=== PATIENT | male | born 1965 | race Caucasian/White ===

== ENCOUNTER 2021-02-05 06:19 | Outpatient (REF) | payer OTHER, SELFPAY ==
[2021-02-05 12:31] LABS: Alanine Aminotransferase 22 U/L (0-40); Albumin Level 4.5 g/dL (3.5-5.0); Alkaline Phosphatase 83 U/L (39-117); Anion Gap 16 (12-20); Aspartate Amino Transferase 15 U/L (5-37); Bilirubin Total 0.6 mg/dL (0.0-1.0); Blood Urea Nitrogen 18 mg/dL (9-16); Calcium 9.7 mg/dL (8.4-10.2); Carbon Dioxide 25 mmol/L (22-29); Chloride 104 mmol/L (96-108); Cholesterol 295 mg/dL; Estimated Glomerular Filt Rate > 60; Glucose Fasting 91 mg/dL (60-99); HDL Cholesterol 47 mg/dL; LDL Cholesterol Calculated 200 mg/dl; Potassium 4.5 mmol/L (3.3-5.1); Sodium 140 mmol/L (135-145); TSH reflex Free T4 3.46 uIU/mL (0.32-4.0); Total Protein 7.3 g/dL (6.5-8.0); Triglycerides 244 mg/dL
== END 2021-02-05 06:20 | disposition home or self-care (01) ==
LOC: HO.HMGCLDS 06:19
PROVIDERS: PCP Nurse Practitioner Family; Visit Provider Nurse Practitioner Family
DX: Z00.00 Encounter for general adult medical examination without abnormal findings (principal); Z12.5 Encounter for screening for malignant neoplasm of prostate
CPT/HCPCS: 36415; 80053; 80061; 84153; 84443

== ENCOUNTER 2021-05-31 10:04 | Outpatient (REF) | payer OTHER, SELFPAY ==
[2021-05-31 11:29] LABS: Appearance Urine CLEAR; Color Urine YELLOW; Glucose Urine UA NEG (NEG); Leukocyte Esterase Urine NEG (NEG); Nitrite Urine NEG (NEG); Specific Gravity - Urine 1.025 (1.005-1.025); Urine Blood NEG (NEG); Urine Ketones NEG (NEG); Urine Protein NEG (NEG-TRACE)
[2021-05-31 11:53] LABS: Cholesterol 251 mg/dL; HDL Cholesterol 49 mg/dL; LDL Cholesterol Calculated 175 mg/dl; Triglycerides 136 mg/dL
== END 2021-05-31 10:05 | disposition home or self-care (01) ==
LOC: HO.HMGCLDS 10:04
PROVIDERS: PCP Nurse Practitioner Family; Visit Provider Nurse Practitioner Family
DX: R10.9 Unspecified abdominal pain (principal); E78.5 Hyperlipidemia, unspecified
CPT/HCPCS: 36415; 80061; 81003

== ENCOUNTER 2021-07-04 10:15 | Outpatient (REF) | payer OTHER, SELFPAY ==
--- NOTE | ~2021-07-04 | US_ITS ---
EXAMINATION: US RETROPERITONEAL LIMITED (RENAL ONLY) CLINICAL INFORMATION: Left flank pain. COMPARISON: None TECHNIQUE: Real-time imaging of the kidneys. FINDINGS: RIGHT KIDNEY: 10.3 x 4.0 x 5.6 cm (SAG x AP x TRV). The kidney is normal in size, contour, and echogenicity. Renal cortical thickness is normal. No calculi or focal parenchymal lesions. No hydronephrosis. LEFT KIDNEY: 10.4 x 4.6 x 5.2 cm (SAG x AP x TRV). The kidney is normal in size, contour, and echogenicity. Renal cortical thickness is normal. No calculi or focal parenchymal lesions. No hydronephrosis. US/US renal BI IMPRESSION: Normal renal ultrasound.
== END 2021-07-04 10:16 | disposition home or self-care (01) ==
LOC: HO.US 10:15
PROVIDERS: PCP Nurse Practitioner Family; Visit Provider Nurse Practitioner Family
DX: R10.9 Unspecified abdominal pain (principal)
CPT/HCPCS: 76775

== ENCOUNTER 2021-08-05 06:59 | Outpatient (REF) | payer OTHER, SELFPAY ==
[2021-08-05 12:03] LABS: Cholesterol 176 mg/dL; HDL Cholesterol 41 mg/dL; LDL Cholesterol Calculated 96 mg/dl; Triglycerides 195 mg/dL
== END 2021-08-05 07:00 | disposition home or self-care (01) ==
LOC: HO.HMGCLDS 06:59
PROVIDERS: PCP Nurse Practitioner Family; Visit Provider Nurse Practitioner Family
DX: Z00.00 Encounter for general adult medical examination without abnormal findings (principal); E78.5 Hyperlipidemia, unspecified
CPT/HCPCS: 36415; 80061

== ENCOUNTER 2021-11-26 08:55 | Outpatient (REF) | payer OTHER, SELFPAY ==
[2021-11-26 10:43] LABS: Hematocrit 49.1 % (42.0-52.0); Mean Corpuscular HGB Conc 32.6 g/dl (31.0-36.0); Mean Corpuscular Hemoglobin 30.4 pg (27.0-33.0); Mean Corpuscular Volume 93.3 fL (80.0-98.0); Mean Platelet Volume 12.9 fL (9.4-12.4); Platelet Count 184 X10*3/uL (160-400); Red Blood Count 5.26 X10*6/uL (4.60-5.80); Red Cell Distribution Width 13.7 % (11.0-16.0); White Blood Count 13.7 X10*3/uL (4.8-10.8)
[2021-11-26 11:22] LABS: Alanine Aminotransferase 39 U/L (0-40); Albumin Level 4.6 g/dL (3.5-5.0); Alkaline Phosphatase 86 U/L (39-117); Anion Gap 14 (12-20); Aspartate Amino Transferase 22 U/L (5-37); Bilirubin Total 0.5 mg/dL (0.0-1.0); Blood Urea Nitrogen 15 mg/dL (9-16); Calcium 10.1 mg/dL (8.4-10.2); Carbon Dioxide 26 mmol/L (22-29); Chloride 105 mmol/L (96-108); Estimated Glomerular Filt Rate > 60; Glucose Random 80 mg/dL (60-115); Potassium 4.6 mmol/L (3.3-5.1); Sodium 140 mmol/L (135-145); Total Protein 7.3 g/dL (6.5-8.0)
[2021-11-26 11:43] LABS: TSH reflex Free T4 2.36 uIU/mL (0.32-4.0)
== END 2021-11-26 08:56 | disposition home or self-care (01) ==
LOC: HO.LAB 08:55
PROVIDERS: PCP Nurse Practitioner Family; Referring Provider Nurse Practitioner Family; Visit Provider Nurse Practitioner Family
DX: Z12.11 Encounter for screening for malignant neoplasm of colon (principal)
CPT/HCPCS: 36415; 80053; 84443; 85027; 99202

== ENCOUNTER → 2022-01-06 15:11 | Outpatient (BNVA) | payer OTHER, SELFPAY | PROVIDERS: PCP Nurse Practitioner Family; Visit Provider Nurse Practitioner Family | DX: Z12.11 Encounter for screening for malignant neoplasm of colon (principal); K59.04 Chronic idiopathic constipation | CPT/HCPCS: 99212 ==

== ENCOUNTER 2022-05-28 11:04 | Outpatient (REF) | payer OTHER, SELFPAY ==
[2022-05-28 14:06] LABS: MANUAL DIFF FLAG NO
[2022-05-28 14:15] LABS: Basophils Absolute Auto 0.1 X10*3/uL (0.0-0.2); Basophils Percent Auto 0.7 % (0-2); Eosinophils Absolute Auto 0.3 X10*3/uL (0.0-0.4); Eosinophils Percent Auto 2.2 % (0-4); Hematocrit 46.1 % (42.0-52.0); Hemoglobin 15.2 g/dl (14.0-18.0); Imm Gran Abs Auto 0.07 X10*3/uL (0.00-0.03); Imm Gran Pct Auto 0.6 % (0.0-0.4); Lymphocytes Absolute Auto 2.7 X10*3/uL (1.2-4.9); Lymphocytes Percent Auto 21.5 % (20-40); Mean Corpuscular Hemoglobin 30.3 pg (27.0-33.0); Mean Platelet Volume 13.4 fL (9.4-12.4); Monocytes Absolute Auto 0.9 X10*3/uL (0.1-1.2); Monocytes Percent Auto 7.5 % (2-11); Neutrophils Absolute Auto 8.5 x10*3/uL (2.0-8.3); Neutrophils Percent Auto 67.5 % (45-73); Platelet Count 187 X10*3/uL (160-400); Red Blood Count 5.01 X10*6/uL (4.60-5.80); Red Cell Distribution Width 14.4 % (11.0-16.0); White Blood Count 12.6 X10*3/uL (4.8-10.8)
[2022-05-28 14:26] LABS: Alanine Aminotransferase 26 U/L (0-40); Albumin Level 4.6 g/dL (3.5-5.0); Alkaline Phosphatase 81 U/L (39-117); Anion Gap 15 (12-20); Aspartate Amino Transferase 23 U/L (5-37); Bilirubin Total 0.6 mg/dL (0.0-1.0); Blood Urea Nitrogen 12 mg/dL (9-16); Calcium 9.6 mg/dL (8.4-10.2); Carbon Dioxide 25 mmol/L (22-29); Chloride 104 mmol/L (96-108); Cholesterol 209 mg/dL; Estimated Glomerular Filt Rate > 60; Glucose Fasting 89 mg/dL (60-99); HDL Cholesterol 46 mg/dL; LDL Cholesterol Calculated 138 mg/dl; Potassium 4.7 mmol/L (3.3-5.1); Sodium 139 mmol/L (135-145); Total Protein 7.2 g/dL (6.5-8.0); Triglycerides 127 mg/dL
[2022-05-28 14:46] LABS: TSH reflex Free T4 1.93 uIU/mL (0.32-4.0)
== END 2022-05-28 11:05 | disposition home or self-care (01) ==
LOC: HO.HMGCLDS 11:04
PROVIDERS: PCP Nurse Practitioner Family; Visit Provider Nurse Practitioner Family
DX: K30 Functional dyspepsia (principal); K59.00 Constipation, unspecified
CPT/HCPCS: 36415; 80053; 80061; 84443; 85025

== ENCOUNTER 2022-05-29 09:02 | Outpatient (REF) | payer OTHER, SELFPAY ==
--- NOTE | ~2022-05-29 | XR_ITS ---
EXAMINATION: XR CHEST CLINICAL INFORMATION: Nicotine dependence COMPARISON: None TECHNIQUE: 2 views of the chest were obtained. FINDINGS: No significant abnormality is noted involving the heart, lungs, mediastinum, bony thorax or soft tissues. Some bibasilar scarring is seen. XR/XR chest 2V IMPRESSION: Unremarkable examination.
[2022-05-29 11:25] LABS: Appearance Urine Clear; Color Urine Yellow; Glucose Urine UA Negative (Negative); Leukocyte Esterase Urine Negative (Negative); Nitrite Urine Negative (Negative); PH 5.5 (5.0-9.0); Specific Gravity - Urine 1.025 (1.005-1.025); Urine Blood Negative (Negative); Urine Ketones Negative (Negative); Urine Protein Negative (Neg-Trace)
[2022-05-29 14:23] LABS: MANUAL DIFF FLAG NO
[2022-05-29 16:07] LABS: Influenza A PCR NEGATIVE (Negative); Influenza B PCR NEGATIVE (Negative); Resp Syncy Virus RNA Qual PCR NEGATIVE (Negative); SARS COV2 PCR INHOUSE NEGATIVE (Negative)
[2022-05-29 17:37] LABS: Basophils Absolute Auto 0.1 X10*3/uL (0.0-0.2); Basophils Percent Auto 0.8 % (0-2); Eosinophils Absolute Auto 0.3 X10*3/uL (0.0-0.4); Eosinophils Percent Auto 2.4 % (0-4); Hematocrit 48.5 % (42.0-52.0); Hemoglobin 15.8 g/dl (14.0-18.0); Imm Gran Abs Auto 0.06 X10*3/uL (0.00-0.03); Imm Gran Pct Auto 0.5 % (0.0-0.4); Lymphocytes Absolute Auto 3.2 X10*3/uL (1.2-4.9); Lymphocytes Percent Auto 25.5 % (20-40); Mean Corpuscular HGB Conc 32.6 g/dl (31.0-36.0); Mean Corpuscular Hemoglobin 29.8 pg (27.0-33.0); Mean Corpuscular Volume 91.5 fL (80.0-98.0); Mean Platelet Volume 13.3 fL (9.4-12.4); Monocytes Percent Auto 7.5 % (2-11); Neutrophils Percent Auto 63.3 % (45-73); Platelet Count 187 X10*3/uL (160-400); Red Cell Distribution Width 14.5 % (11.0-16.0); White Blood Count 12.7 X10*3/uL (4.8-10.8)
== END 2022-05-29 09:03 | disposition home or self-care (01) ==
LOC: HO.HMGCLDS 09:02
PROVIDERS: PCP Nurse Practitioner Family; Visit Provider Nurse Practitioner Family
DX: Z20.822 Contact with and (suspected) exposure to COVID-19 (principal); K30 Functional dyspepsia; K59.00 Constipation, unspecified; D72.829 Elevated white blood cell count, unspecified; F17.200 Nicotine dependence, unspecified, uncomplicated
CPT/HCPCS: 0241U; 36415; 71046; 81003; 85025

== ENCOUNTER 2022-07-25 15:32 | Outpatient (REF) | payer OTHER, SELFPAY ==
--- NOTE | ~2022-07-25 | CT_ITS ---
EXAMINATION: CT CHEST SCREENING CLINICAL INFORMATION: 43 pack-year history. Current smoker. COMPARISON: Previous chest x-ray May 2022 TECHNIQUE: Multidetector volumetric CT imaging of the chest is performed without contrast using low dose technique. Additional 2D coronal and sagittal reformatted images and axial 3D maximum intensity projection (MIP) images are generated on the CT workstation. This CT examination was performed using dose optimization techniques as appropriate, variously including the following: *Automated exposure control *Adjustment of mA and/or kV according to patient size (this includes techniques or standardized protocols for targeted exams where dose is matched to indication/reason for exam; i.e. extremities or head) *Use of iterative reconstruction technique DLP: 41 mGy-cm FINDINGS: LUNGS: Mild emphysema. Increased soft tissue in the dependent right mainstem bronchus axial image 209 series 5.. 3 mm calcified right upper lobe nodule axial image 135 series 5. 5 mm lingular nodule axial image 295 series 5. Linear scarring or subsegmental atelectasis at the lung bases. MEDIASTINUM: The mediastinum is normal. CORONARY ARTERY CALCIFICATION: None visualized on this study. PLEURA: There is no pleural effusion. No pleural mass or thickening. AXILLA: No lymphadenopathy. UPPER ABDOMEN: Unremarkable OSSEOUS STRUCTURES: Degenerative changes of the spine. CT/CT lung screening IMPRESSION: Mild emphysema. Small pulmonary nodules. Soft tissue in the right mainstem bronchus. ASSESSMENT: Lung-RADS category 4A: Suspicious RECOMMENDATION: 3 month low-dose chest CT follow-up for right mainstem bronchus endobronchial finding.
== END 2022-07-25 15:33 | disposition home or self-care (01) ==
LOC: HO.CT 15:32
PROVIDERS: PCP Nurse Practitioner Family; Visit Provider Physician Assistant Medical
DX: Z12.2 Encounter for screening for malignant neoplasm of respiratory organs (principal); F17.210 Nicotine dependence, cigarettes, uncomplicated
CPT/HCPCS: 71271; G0296

== ENCOUNTER 2022-12-09 09:10 | Outpatient (REF) | payer OTHER, SELFPAY ==
--- NOTE | ~2022-12-09 | CT_ITS ---
EXAMINATION: CT CHEST SCREENING CLINICAL INFORMATION: Nicotine dependence. Current smoker 40 pack year history. Increased soft tissue in the dependent right mainstem bronchus. COMPARISON: CT lung screening 07/25/2022. TECHNIQUE: Multidetector volumetric CT imaging of the chest is performed without contrast using low dose technique. Additional 2D coronal and sagittal reformatted images and axial 3D maximum intensity projection (MIP) images are generated on the CT workstation. This CT examination was performed using dose optimization techniques as appropriate, variously including the following: *Automated exposure control *Adjustment of mA and/or kV according to patient size (this includes techniques or standardized protocols for targeted exams where dose is matched to indication/reason for exam; i.e. extremities or head) *Use of iterative reconstruction technique DLP: 37 mGy-cm FINDINGS: LUNGS: The lungs are hyperinflated with bibasilar platelike atelectasis. There is a 5 mm perivascular lung nodule in the lingula image 278/6, subpleural 3 mm calcified nodule right upper lobe axial image 135/6. No additional pulmonary nodules seen. MEDIASTINUM: Central trachea and the bronchi are widely patent. The thyroid lobes are symmetrical and normal. Heart size and the great vessels are normal caliber. No abnormal size mediastinal or hilar lymph nodes seen. There is no pericardial effusion. Previously seen soft tissue in the dependent right mainstem bronchus has resolved. However, there is smaller dependent nodular 3 mm on axial image 193/6. CORONARY ARTERY CALCIFICATION: None visualized on this study. PLEURA: There is no pleural effusion. No pleural mass or thickening. AXILLA: No lymphadenopathy. UPPER ABDOMEN: Unremarkable. OSSEOUS STRUCTURES: Unremarkable. CT/CT lung screen follow up IMPRESSION: Small nodular densities in dependent right bronchus appears to be a slightly different location. It measures 3 mm, but stable. Not sure if it is the same nodule as before. Right upper lobe calcification and perivascular lingular nodule is stable. No new nodules seen. There is bilateral lower lobe and lingular platelike atelectasis. ASSESSMENT: Lung-RADS category 2: Benign. RECOMMENDATION: Low-dose annual CT chest.
== END 2022-12-09 09:11 | disposition home or self-care (01) ==
LOC: HO.CT 09:10
PROVIDERS: PCP Nurse Practitioner Family; Visit Provider Physician Assistant Medical
DX: Z12.2 Encounter for screening for malignant neoplasm of respiratory organs (principal); F17.210 Nicotine dependence, cigarettes, uncomplicated
CPT/HCPCS: 71250

== ENCOUNTER 2023-02-05 10:33 | Outpatient (REF) | payer OTHER, SELFPAY ==
[2023-02-05 15:25] LABS: Influenza A PCR NEGATIVE (Negative); Influenza B PCR NEGATIVE (Negative); Resp Syncy Virus RNA Qual PCR NEGATIVE (Negative); SARS COV2 PCR INHOUSE POSITIVE (Negative)
== END 2023-02-05 10:34 | disposition home or self-care (01) ==
LOC: HO.LAB 10:33
PROVIDERS: Visit Provider Nurse Practitioner Family
DX: Z20.822 Contact with and (suspected) exposure to COVID-19 (principal); R09.89 Other specified symptoms and signs involving the circulatory and respiratory systems
CPT/HCPCS: 0241U

== ENCOUNTER 2023-05-27 13:02 | Outpatient (AMB) | payer OTHER, SELFPAY ==
[2023-05-27 13:17] VITALS: BP 112/70; PULSE 100; O2SAT 100; BMI 20.5
--- NOTE | 2023-05-27 13:17 | MHC.PC.OV ---
Vital Signs 05/27/23 13:17 Height 5 ft 6 in Weight 127 lb BMI 20.5 BP 112/70 Blood Pressure Location Rt brachial Position Sitting Pulse 100 Pulse Source Pulse Oximeter Pulse Oximetry (%) 100 Oxygen Delivery Method Room Air Intake Visit Reasons: Follow up ?Nebulizer Allergies No Known Allergies [No Known Allergies*] Allergy (Verified 05/27/23 13:19) Medication List - Last Reconciled 05/27/23 by MARE Prieto-FARHAT albuterol sulfate 90 mcg/actuation 2 puffs inhalation Q6H PRN atorvastatin 20 mg PO BEDTIME citalopram 20 mg PO DAILY fluticasone furoate-vilanterol 200-25 mcg/dose 1 inh inhalation DAILY lorazepam 1 mg PO TID miscellaneous medical supply As directed, heating pad montelukast 10 mg PO DAILY [id number] mcg 1 tab PO DAILY quetiapine 50 mg PO BEDTIME sennosides (Natural Senna Laxative) 8.6 mg PO BEDTIME Tobacco use date assessed: 05/27/23 Dental Screening Dental Screen Date: 05/27/23 Did you have a dental visit in the last 12 months?: Yes Did you have a dental problem in the last 6 months where you did not have access to dental care?: No Was dental information given to patient?: Patient has dentist HPI Follow up ?Nebulizer HPI Details Pt is a smoker. He is part of the low-dose CT program. Pt would benefit from a nebulizer, will work on getting him one. Will also order PFT testing. Denies chest pain, excessive shortness of breath, and dizziness. [facility] Medical History Nicotine dependence, cigarettes, uncomplicated Dyslipidemia Surgical History History of esophagogastroduodenoscopy (EGD) History of colonoscopy History of total replacement of right shoulder joint Family History Father Diabetes Heavy drinker of alcohol Substance use disorder Mother Heart attack Heavy drinker of alcohol Substance use disorder Sister Substance use disorder Mental health disorder Social History Housing: Apartment Alcohol intake: never Patient Tobacco Use Status: Current everyday Tobacco user Cigarette Packs Per Day: 0.5 Cigarettes Per Day: 10 Years Smoked: (onset 14yo, 1ppd x 42yrs, now 1/2ppd, 40pyh) e-Cigarette/Vaping Use: Never Used Second Hand Smoke Exposure: Yes service: Yes Current occupational status: disabled Cognitive needs: No Hearing needs: No Vision needs: Yes Questionnaire Thrive Questionnaire Date Thrive assessed: 01/14/22 EZEKIEL-7 AMB Questionnaire EZEKIEL-7 Date EZEKIEL - 7 assessed: 01/14/22 Source: Developed by Drs. Edwin Pinto, Kinjal Allen, Franco Archibald and colleagues, with an educational sonia from [employer]. Review of Systems Const Reports as per HPI Physical exam (Primary Care) Vital Signs: Last Vital Signs Pulse 100 05/27/23 13:17 BP 112/70 05/27/23 13:17 Pulse Ox 100 05/27/23 13:17 Oxygen Delivery Method Room Air 05/27/23 13:17 BMI result Body Mass Index 20.5 Tobacco/Smoking Status: Tobacco use Status Tobacco use date assessed 05/27/23 05/27/23 13:26 Patient Tobacco Use Status Current everyday Tobacco 05/27/23 13:26 e-Cigarette/Vaping Use Never Used 05/27/23 13:21 Thrive Assessment: Date of Thrive Assessment Date Thrive assessed 01/14/22 05/27/23 13:21 Const General: cooperative Orientation/consciousness: patient oriented x3 Resp Effort & Inspection: normal respiratory effort Auscultation: diminished lung sounds Cardio Rate: regular rate Rhythm: regular rhythm Heart sounds: S1 normal heart sound present and S2 normal heart sound present Neuro General: patient oriented x3 Psych Appearance: grossly normal Mental Status: mental status grossly normal Speech and movement: Normal speech and movement present Affect: normal affect Attitude: cooperative Thought process: Normal thought process present Thought content: Normal thought content present Insight: Good insight present (Psych) Judgement: Good judgement present (Psych) Immunizations pneumoc 20-dania conj-dip cr(PF) 0.5 mL IM syringe Performing Provider: JILL Prieto Performing Location: [facility] [place] [facility] Administered by: Sapphire Clemente CMA on 05/27/23 13:56 Dose Route Admin Location Dispensed Lot Number Expiration Date NDC Desizing Machine Offbearer 0.5 mL IM Right Deltoid 0.5 mL [id number] 07/07/24 9331-9936-56 WYETH/PFIZER VIS Given Date VIS Provided VIS Publication Date 05/27/23 Single Vaccine 21 Eligibility Eligibility Date Funding Source Not [facility] Eligible 05/27/23 Private Assessment and Plan Assessment & Plan (1) Nicotine dependence, cigarettes, uncomplicated: Comment: (current smoker, onset 14, 1ppd x 42yrs, now 1/2ppd, 40pyh) Code(s): F17.210 - Nicotine dependence, cigarettes, uncomplicated (2) Cough: Code(s): R05.9 - Cough, unspecified Plan The patient agreed to the use of a medical secretary receptionist for this encounter. Scribed for MARE Parikh- by Samantha Salmeron medical secretary receptionist, on 05/27/2023 at 13:30 EST. Orders: Orders Comprehensive [place]. Panel Fast Today Z00.00 - Encounter for general adult medical examination without abnormal findings TSH reflex Free T4 Today Z00.00 - Encounter for general adult medical examination without abnormal findings Prostate Specific Antigen Scr Today Z12.5 - Encounter for screening for malignant neoplasm of prostate PFT pulmonary function test Today F17.210 - Nicotine dependence, cigarettes, uncomplicated, R05.9 - Cough, unspecified Complete Blood Count Auto Diff Today Z00.00 - Encounter for general adult medical examination without abnormal findings UA CC w/rflx Micro + Cult Today Z00.00 - Encounter for general adult medical examination without abnormal findings Lipid Panel Today Z00.00 - Encounter for general adult medical examination without abnormal findings Pneumococcal 20 Immunization Today Z23 - Encounter for immunization Coding Level of Care Code Est Pt Level 3 (58020) Diagnoses Nicotine dependence, cigarettes, uncomplicated F17.210 Cough R05.9
== END 2023-05-27 15:20 | disposition home or self-care (01) ==
PROVIDERS: PCP Nurse Practitioner Family; Visit Provider Nurse Practitioner Family
DX: F17.210 Nicotine dependence, cigarettes, uncomplicated (principal); R05.9 Cough, unspecified; Z23 Encounter for immunization
CPT/HCPCS: 90471; 90677; 99213

== ENCOUNTER 2023-06-12 08:57 | Outpatient (REF) | payer OTHER, SELFPAY ==
[2023-06-12 13:14] LABS: Alanine Aminotransferase 19 U/L (0-40); Albumin Level 4.3 g/dL (3.5-5.0); Alkaline Phosphatase 69 U/L (39-117); Anion Gap 13 (12-20); Aspartate Amino Transferase 18 U/L (5-37); Bilirubin Total 0.6 mg/dL (0.0-1.0); Blood Urea Nitrogen 15 mg/dL (9-16); Calcium 9.4 mg/dL (8.4-10.2); Carbon Dioxide 25 mmol/L (22-29); Chloride 108 mmol/L (96-108); Cholesterol 175 mg/dL (<200); Estimated Glomerular Filt Rate > 60; Glucose Fasting 97 mg/dL (60-99); HDL Cholesterol 49 mg/dL (>40); LDL Cholesterol Calculated 99 mg/dL (<100); Potassium 4.3 mmol/L (3.3-5.1); Sodium 142 mmol/L (135-145); TSH reflex Free T4 2.13 uIU/mL (0.32-4.0); Total Protein 7.1 g/dL (6.5-8.0); Triglycerides 136 mg/dL (<150)
== END 2023-06-12 08:58 | disposition home or self-care (01) ==
LOC: HO.HMGCLDS 08:57
PROVIDERS: PCP Nurse Practitioner Family; Visit Provider Nurse Practitioner Family
DX: Z00.00 Encounter for general adult medical examination without abnormal findings (principal); Z12.5 Encounter for screening for malignant neoplasm of prostate; D72.829 Elevated white blood cell count, unspecified; F17.200 Nicotine dependence, unspecified, uncomplicated; E78.5 Hyperlipidemia, unspecified; Z13.29 Encounter for screening for other suspected endocrine disorder; Z13.0 Encounter for screening for diseases of the blood and blood-forming organs and certain disorders involving the immune mechanism
CPT/HCPCS: 36415; 80053; 80061; 81001; 84153; 84443; 85025

== ENCOUNTER 2023-06-15 11:16 | Outpatient (AMB) | payer OTHER, SELFPAY ==
[2023-06-15 11:23] VITALS: BP 124/80; PULSE 90; O2SAT 99; BMI 20.9
--- NOTE | 2023-06-15 11:23 | MHC.PC.OV ---
Vital Signs 06/15/23 11:23 Height 5 ft 6 in Weight 129 lb 4 oz BMI 20.9 BP 124/80 Blood Pressure Location Lt brachial Position Sitting Pulse 90 Pulse Source Pulse Oximeter Pulse Oximetry (%) 99 Oxygen Delivery Method Room Air Intake Visit Reasons: Annual PE Intake Note: last colon screen 02/07/14 due 10 years after pt had his fasting labs on 06/12/23 Allergies No Known Allergies [No Known Allergies*] Allergy (Verified 06/15/23 11:58) Medication List - Last Reconciled 06/15/23 by MARE Prieto-FARHAT albuterol sulfate 90 mcg/actuation 2 puffs inhalation Q6H PRN atorvastatin 20 mg PO BEDTIME citalopram 20 mg PO DAILY fluticasone furoate-vilanterol 200-25 mcg/dose 1 inh inhalation DAILY ipratropium-albuterol 0.5 mg-3 mg(2.5 mg base)/3 mL 3 mL inhalation Q6-8H PRN lorazepam 1 mg PO TID miscellaneous medical supply As directed, heating pad montelukast 10 mg PO DAILY [id number] mcg 1 tab PO DAILY nebulizer accessories As directed nebulizers As directed quetiapine 50 mg PO BEDTIME sennosides (Natural Senna Laxative) 8.6 mg PO BEDTIME Tobacco use date assessed: 06/15/23 Dental Screening Dental Screen Date: 06/15/23 Did you have a dental visit in the last 12 months?: Yes Did you have a dental problem in the last 6 months where you did not have access to dental care?: No Was dental information given to patient?: Patient has dentist HPI Annual PE HPI Details Pt is here for a PE. Labs were already performed. PSA is up to date. Pt sees GI. Will contact them to see when his colonoscopy will be performed. Leukocytosis noted on recent labs. Will order UA, chest XR, and repeat CBC. Denies any current symptoms. He is not on any oral prednisone. [facility] Medical History Nicotine dependence, cigarettes, uncomplicated Dyslipidemia Surgical History History of esophagogastroduodenoscopy (EGD) History of colonoscopy History of total replacement of right shoulder joint Family History Father Diabetes Heavy drinker of alcohol Substance use disorder Mother Heart attack Heavy drinker of alcohol Substance use disorder Sister Substance use disorder Mental health disorder Social History Housing: Apartment Alcohol intake: never Patient Tobacco Use Status: Current everyday Tobacco user Cigarette Packs Per Day: 0.5 Cigarettes Per Day: 10 Years Smoked: (onset 14yo, 1ppd x 42yrs, now 1/2ppd, 40pyh) e-Cigarette/Vaping Use: Never Used Second Hand Smoke Exposure: Yes service: Yes Current occupational status: disabled Cognitive needs: No Hearing needs: No Vision needs: Yes Questionnaire Thrive Questionnaire Date Thrive assessed: 01/14/22 EZEKIEL-7 AMB Questionnaire EZEKIEL-7 Date EZEKIEL - 7 assessed: 01/14/22 Source: Developed by Drs. Edwin Pinto, Kinjal Allen, Franco Archibald and colleagues, with an educational sonia from [employer]. Review of Systems Const Denies chills and Denies fever(s) Eyes Denies blurry vision ENT Denies vertigo, Denies dizziness and Denies sore throat Card Denies chest pain at rest, Denies chest pain with activity, Denies diaphoresis, Denies dyspnea and Denies dyspnea on exertion Resp Denies cough, Denies dyspnea, Denies dyspnea on exertion and Denies wheezing GI Denies abdominal pain, Denies melena, Denies hematochezia, Denies constipation, Denies diarrhea and Denies loose stools Denies hematuria Musc Denies numbness and Denies tingling Skin/Breast Denies lesions Neuro Denies vertigo, Denies dizziness, Denies numbness and Denies tingling Psych Denies anxiety, Denies depression, Denies homicidal ideation, Denies suicidal ideation and Denies other (substance abuse) Aller/Immun Denies wheezing Physical exam (Primary Care) Vital Signs: Last Vital Signs Pulse 90 06/15/23 11:23 BP 124/80 06/15/23 11:23 Pulse Ox 99 06/15/23 11:23 Oxygen Delivery Method Room Air 06/15/23 11:23 BMI result Body Mass Index 20.9 Tobacco/Smoking Status: Tobacco use Status Tobacco use date assessed 06/15/23 06/15/23 11:31 Patient Tobacco Use Status Current everyday Tobacco 06/15/23 11:27 e-Cigarette/Vaping Use Never Used 06/15/23 11:27 Thrive Assessment: Date of Thrive Assessment Date Thrive assessed 01/14/22 06/15/23 11:27 Const General: cooperative Nutritional Appearance: well nourished Orientation/consciousness: patient oriented x3 HENMT Head: Yes normal to inspection, Yes normocephalic and Yes atraumatic Ears: TM's normal bilaterally Eyes General: appearance normal, both eyes and all related structures Alignment and Position: alignment normal and position normal Neck Neck: Yes normal visual inspection and Yes no lymphadenopathy Thyroid: Thyroid normal Resp Effort & Inspection: normal respiratory effort Auscultation: clear to auscultation bilaterally and diminished lung sounds Cardio Rate: regular rate Rhythm: regular rhythm Heart sounds: S1 normal heart sound present, S2 normal heart sound present and no murmurs GI Palpation (GI): Soft to palpation and nontender Auscultation: normal bowel sounds Male General Exam: Yes normal external exam Penis: normal penis Scrotum: scrotum normal, testes descended bilaterally and no inguinal hernias Testes: no testicular mass Skin Rashes: no rashes Neuro General: patient oriented x3, moves all extremities, no focal motor deficits and deep tendon reflexes 2+ bilaterally Romberg Test: Negative Psych Appearance: grossly normal Mental Status: mental status grossly normal Speech and movement: Normal speech and movement present Affect: normal affect Attitude: cooperative Thought process: Normal thought process present Thought content: Normal thought content present Insight: Good insight present (Psych) Judgement: Good judgement present (Psych) Assessment and Plan Assessment & Plan (1) Leukocytosis: Code(s): D72.829 - Elevated white blood cell count, unspecified Plan: CBC, UA, and chest XR ordered (2) Physical exam: Code(s): Z00.00 - Encounter for general adult medical examination without abnormal findings Plan The patient agreed to the use of a medical staffing coordinator for this encounter. Scribed for JILL Parikh by jean-pierre Pantoja scribe, on 06/15/2023 at 11:35 EST Orders: Orders Complete Blood Count Auto Diff Today D72.829 - Elevated white blood cell count, unspecified AMB EKG-In Office Today Z00.00 - Encounter for general adult medical examination without abnormal findings UA CC w/rflx Micro + Cult Today D72.829 - Elevated white blood cell count, unspecified XR chest 2V Today D72.829 - Elevated white blood cell count, unspecified Coding Level of Care Code Est Pt Prev Care 40-64y(66387) Diagnoses Leukocytosis D72.829 Physical exam Z00.00
== END 2023-06-15 11:59 | disposition home or self-care (01) ==
PROVIDERS: PCP Nurse Practitioner Family; Visit Provider Nurse Practitioner Family
DX: D72.829 Elevated white blood cell count, unspecified (principal); Z00.00 Encounter for general adult medical examination without abnormal findings
CPT/HCPCS: 99396

== ENCOUNTER 2023-06-15 12:00 | Outpatient (REF) | payer OTHER, SELFPAY | END 2023-06-15 12:01 | disposition home or self-care (01) | LOC: HO.HMGCX 12:00 | PROVIDERS: PCP Nurse Practitioner Family; Visit Provider Nurse Practitioner Family | DX: Z00.00 Encounter for general adult medical examination without abnormal findings (principal); D72.829 Elevated white blood cell count, unspecified | CPT/HCPCS: 36415; 71046; 81003; 85025 ==

== ENCOUNTER 2023-06-23 09:28 | Outpatient (REF) | payer OTHER, SELFPAY ==
[2023-06-23 11:37] LABS: MANUAL DIFF FLAG NO
[2023-06-23 11:56] LABS: Basophils Absolute Auto 0.1 X10*3/uL (0.0-0.2); Basophils Percent Auto 0.8 % (0-2); Eosinophils Absolute Auto 0.4 X10*3/uL (0.0-0.4); Eosinophils Percent Auto 2.7 % (0-4); Hematocrit 47.5 % (42.0-52.0); Hemoglobin 15.3 g/dl (14.0-18.0); Imm Gran Abs Auto 0.08 X10*3/uL (0.00-0.03); Imm Gran Pct Auto 0.6 % (0.0-0.4); Mean Corpuscular HGB Conc 32.2 g/dl (31.0-36.0); Mean Corpuscular Hemoglobin 29.9 pg (27.0-33.0); Mean Corpuscular Volume 92.8 fL (80.0-98.0); Mean Platelet Volume 13.2 fL (9.4-12.4); Monocytes Percent Auto 7.5 % (2-11); Neutrophils Percent Auto 66.4 % (45-73); Platelet Count 190 X10*3/uL (160-400); Red Blood Count 5.12 X10*6/uL (4.60-5.80); Red Cell Distribution Width 13.9 % (11.0-16.0); White Blood Count 13.6 X10*3/uL (4.8-10.8)
== END 2023-06-23 09:29 | disposition home or self-care (01) ==
LOC: HO.HMGCLDS 09:28
PROVIDERS: PCP Nurse Practitioner Family; Visit Provider Nurse Practitioner Family
DX: D72.829 Elevated white blood cell count, unspecified (principal)
CPT/HCPCS: 36415; 85025

== ENCOUNTER 2023-07-24 09:46 | Outpatient (REF) | payer OTHER, SELFPAY ==
--- NOTE | 2023-07-24 10:35 | PFT_ITS ---
Forced vital capacity 95%, FEV1 81%, FEV1/FVC ratio is 67. ZON15-56 46%. MVV 95%. Post bronchodilator therapy, there is no significant change. Total lung capacity 83% and residual volume 72%. Diffusion capacity 63%. CONCLUSION: 1. Obstructive airway disorder, mild to moderately severe. 2. No significant improvement with bronchodilator therapy. MD JARRETT Roberts/MODL / [id number]
== END 2023-07-24 09:47 | disposition home or self-care (01) ==
LOC: HO.RESP 09:46
PROVIDERS: PCP Nurse Practitioner Family; Visit Provider Nurse Practitioner Family
DX: R05.9 Cough, unspecified (principal); F17.210 Nicotine dependence, cigarettes, uncomplicated
CPT/HCPCS: 94010; 94727; 94729

== ENCOUNTER → 2023-07-24 10:35 | Outpatient (BNV) | payer OTHER, SELFPAY | PROVIDERS: PCP Nurse Practitioner Family; Visit Provider Internal Medicine | DX: R05.9 Cough, unspecified (principal); F17.210 Nicotine dependence, cigarettes, uncomplicated | CPT/HCPCS: 94060; 94727; 94729 ==

== ENCOUNTER → 2023-07-27 11:20 | Outpatient (BNV) | payer OTHER, SELFPAY | PROVIDERS: PCP Nurse Practitioner Family; Visit Provider Internal Medicine | DX: D72.829 Elevated white blood cell count, unspecified (principal); F17.210 Nicotine dependence, cigarettes, uncomplicated | CPT/HCPCS: 99204 ==

== ENCOUNTER 2023-09-03 05:41 | Day surgery (SDC) | payer OTHER, SELFPAY ==
[2023-09-01 15:28] VITALS: BMI 20.8
--- NOTE | 2023-09-03 06:39 | MHC.SHP ---
Pre-Procedural Eval Section A Date of Service: 09/03/23 Section B Chief Complaint: screening Relevant Family History (Specify if Yes): No Relevant Social History: Tobacco Use Present Medications: see Short Stay Collaborative assessment Medical History: Significant History (lipids, constipation) History of Previous Operations: Relevant previous surgery/procedure and date(s) (History of shoulder surgery History of total replacement of right shoulder joint Hx of colonoscopy) Allergies: Allergies Allergy/AdvReac Type Severity Reaction Status Date / Time No Known Allergies Allergy Verified 06/15/23 11:58 [No Known Allergies*] Review of Systems Sugical H&P ROS: Negative: Constitution, Cardiovascular, Respiratory, Neurological, Psychiatric, Hem-Onc, Allergic/Immunologic, Gastrointestinal, Genitourinary, Musculoskeletal, Integumentary, Endocrine and Eyes/Ears/Nose/Throat Exam Surgical H&P Exam: Normal: HEENT, Normal: Heart, Normal: Lungs, Normal: Extremities, Normal: Abdomen, Normal: Skin and Normal: Neurological Plan Diagnosis/Plan: Unchanged I have reviewed the history and physical and performed a pertinent physical examination on my patient. No changes have occurred unless specified. Time Spent With Patient Time: Total time managing care of this patient today ____ minutes.
[2023-09-03 06:44] VITALS: BMI 19.2
[2023-09-03 06:51] VITALS: BP 101/71; PULSE 82; RESP 20; TEMP 36.3; O2SAT 97
[2023-09-03] MEDS: Lactated Ringers 1,000 ML 50 ML IVCONT (06:56)
--- NOTE | 2023-09-03 07:36 | HO.ANESPROP2 ---
HPI - Anesthesia Eval Consult details Narrative: Colonoscopy [facility] Active Problems Active Problems: All Active Problems (Updated 09/01/23 @ 15:34 by Isatu Manrique, RN) Cough (Acute) COVID-19 (Acute) Leukocytosis (Chronic) Upset stomach (Acute) Constipation (Acute) Dyslipidemia (Acute) Nicotine dependence, cigarettes, uncomplicated (Acute) Past Medical History Medical History (Updated 09/01/23 @ 15:34 by Isatu Manrique, KIERSTEN) Hyperlipidemia Anxiety COPD (chronic obstructive pulmonary disease) Smoker Leukocytosis Nicotine dependence, cigarettes, uncomplicated Dyslipidemia Family History Family History Father Diabetes Heavy drinker of alcohol Substance use disorder Mother Heart attack Heavy drinker of alcohol Substance use disorder Sister Substance use disorder Mental health disorder Family history of problems with anesthesia: No Surgical History Surgical History (Updated 07/27/23 @ 11:21 by Laurie Garcia MD) History of esophagogastroduodenoscopy (EGD) History of colonoscopy History of total replacement of right shoulder joint History of Problems with Anesthesia: No Social History Social History (Updated 07/27/23 @ 11:02 by Lashonda Umaña) Household Members: Significant Other Housing: Apartment Alcohol intake: never Patient Tobacco Use Status: Current everyday Tobacco user Tobacco use type: Cigarette Cigarette Packs Per Day: 0.5 Years Smoked: (onset 14yo, 1ppd x 42yrs, now 1/2ppd, 40pyh) e-Cigarette/Vaping Use: Never Used Second Hand Smoke Exposure: Yes Are you DNR?: No Advance Directives: No Advance Directives Information Provided: Yes service: Yes ([employer]) Current occupational status: disabled Cognitive needs: No Hearing needs: No Vision needs: Yes Meds Allergies Allergy/AdvReac Type Severity Reaction Status Date / Time No Known Allergies Allergy Verified 06/15/23 11:58 [No Known Allergies*] Active Medications: Current Medications Lactated Ringer's (Lr) 1,000 mls @ 50 mls/hr IVCONT .Q20H RICHARD Last Admin: 09/03/23 06:56 Dose: 50 mls/hr Home Medications Medication Instructions Recorded Confirmed Last Taken Type citalopram 20 mg tablet (Celexa) 20 mg PO DAILY 07/24/20 07/27/23 Unknown History lorazepam 1 mg tablet 1 mg PO TID 07/24/20 07/27/23 Unknown History quetiapine 50 mg tablet (Seroquel) 50 mg PO BEDTIME 07/24/20 07/27/23 Unknown History Exam Height,Weight and Vital Signs: Height 5 ft 6 in Weight 53.887 kg Last Vital Signs Temp 97.3 F 09/03/23 06:51 Pulse 82 09/03/23 06:51 Resp 20 09/03/23 06:51 BP 101/71 09/03/23 06:51 Pulse Ox 97 09/03/23 06:51 O2 Del Method Room Air 09/03/23 06:51 Airway Mallampati Class: II TM Dist: >3cm Neck ROM: Full Denture: Upper Heart: rrr Lungs: cta Assessment and Plan Assessment Anesthesia Assessment: Anesthesia Plan Discussed Final Anesthetic Review Family History of Problems with Anesthesia: No History of Problems with Anesthesia: No NPO: Yes ASA Class: III Final Preanesthetic Review: No Changes in Pt Med Stat, Meds/Allgs Chart Reviewed, Consent Obtained/Reviewed and Anes Risks/Benef Reviewed Patient Risk: Intermediate Procedure Risk: Low Anesthetic Plan Anesthetic Plan: MAC: and Agree w/ Assess. and Plan Disposition: Standard PACU
--- NOTE | 2023-09-03 07:41 | P.OP_ITS ---
Operative Note Operative Note Date of Service: 09/03/23 Narrative: Operative Information Procedure Description: Colonoscopy Indication: screening Anesthesia: MAC COLONOSCOPY Instrument: Olympus variable stiffness pediatric scope 190L Colonoscopy Monitoring: Vital signs and clinical assessment, continuous EKG monitoring, Pulse oximetry, Carbon Dioxide monitoring and blood pressure monitoring were done throughout the procedure. Colon withdrawal time was 10 minutes. Procedure: The patient was placed in the left lateral decubitis position and pre-procedure medications were administered. After a digital rectal examination of the ano-rectum, the video colonoscope was inserted into the rectum and advanced through the colon to the cecum/TI. The colonoscope was slowly withdrawn in a retrograde panoramic fashion and the colon mucosa was carefully examined including a retroflexed view of the rectum. Findings and interventions are described below. Procedure Difficulty: easy Findings: Terminal Ileum-normal Cecum:normal Ascending Colon: normal Transverse Colon -normal Descending Colon:normal Sigmoid Colon: normal, very tight colon angulated sigmoid Rectum: Retroflexion with medium sized internal hemorrhoids, grade I, 8-9 mm sessile polyp removed with cold snare Anorectum - normal Colon preparation: [place] Bowel Preparation Scale Right colon; 2 Transverse colon: 3 Left colon; 3 (0 = Unprepared colon segment with mucosa not seen due to solid stool that c annot be cleared. 1 = Portion of mucosa of the colon segment seen, but other areas of the colon segment not well seen due to staining, residual stool and/or opaque liquid. 2 = Minor amount of residual staining, small fragments of stool and/or opaque liquid, but mucosa of colon segment seen well. 3 = Entire mucosa of colon segment seen well with no residual staining, small fragments of stool or opaque liquid) Impression and Post Procedure Diagnosis: internal hemorrhoids tortuous colon polyp Plan: High fiber diet leaflet Avoid straining at stool, epsom salts and sitz bath, anusol supps or cream Repeat Colonoscopy in 5-7 years if adenomatous polyp, 10 yrs if hyperplastic or earlier if clinically indicated Above findings were reviewed with the patient and relevant handouts were provided if indicated.
[2023-09-03 08:05] VITALS: BP 98/64; PULSE 84; RESP 16; TEMP 36.1; O2SAT 97
[2023-09-03 08:20] VITALS: BP 115/80; PULSE 88; RESP 16; O2SAT 98
[2023-09-03 08:35] VITALS: BP 119/79; PULSE 71; RESP 16; TEMP 36.1; O2SAT 98
== END 2023-09-03 09:07 | disposition home or self-care (01) ==
PROVIDERS: PCP Nurse Practitioner Family; Visit Provider Internal Medicine Gastroenterology
PROC: 0DJD8ZZ Inspection of Lower Intestinal Tract, Via Natural or Artificial Opening Endoscopic (ICD-10-PCS; CPT 45378; principal; 2023-09-03 07:30)
DX: Z12.11 Encounter for screening for malignant neoplasm of colon (principal); K62.1 Rectal polyp; K57.30 Diverticulosis of large intestine without perforation or abscess without bleeding; K56.2 Volvulus; K64.0 First degree hemorrhoids; K59.04 Chronic idiopathic constipation; E78.5 Hyperlipidemia, unspecified; J44.9 Chronic obstructive pulmonary disease, unspecified; F41.9 Anxiety disorder, unspecified; F17.210 Nicotine dependence, cigarettes, uncomplicated; Z79.02 Long term (current) use of antithrombotics/antiplatelets; Z79.899 Other long term (current) drug therapy
CPT/HCPCS: 45385; 88305; J2704

== ENCOUNTER → 2023-09-03 05:41 | Outpatient (BNV) | payer OTHER, SELFPAY | PROVIDERS: PCP Nurse Practitioner Family; Visit Provider Internal Medicine Gastroenterology | DX: Z12.11 Encounter for screening for malignant neoplasm of colon (principal); K63.5 Polyp of colon; K63.89 Other specified diseases of intestine; K64.8 Other hemorrhoids | CPT/HCPCS: 45385 ==

== ENCOUNTER 2023-11-26 15:20 | Outpatient (AMB) | payer OTHER, SELFPAY ==
[2023-11-26 15:24] VITALS: BP 118/62; PULSE 83; O2SAT 96; BMI 20.2
--- NOTE | 2023-11-26 15:24 | MHC.PC.OV ---
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 Will order labs. Denies chest pain, shortness of breath, and dizziness. Pt is a smoker, encouraged smoking cessation. He is scheduled for a follow up lung CT next month. [facility] Medical History (Updated 11/26/23 @ 15:50 by MARE Prieto-FARHAT) Hyperlipidemia Anxiety COPD (chronic obstructive pulmonary disease) Smoker Leukocytosis Nicotine dependence, cigarettes, uncomplicated Dyslipidemia Surgical History History of esophagogastroduodenoscopy (EGD) History of colonoscopy History of total replacement of right shoulder joint Family History Father Diabetes Heavy drinker of alcohol Substance use disorder Mother Heart attack Heavy drinker of alcohol Substance use disorder Sister Substance use disorder Mental health disorder Social History Household Members: Significant Other Housing: Apartment Alcohol intake: never Patient Tobacco Use Status: Current everyday Tobacco user Tobacco use type: Cigarette Cigarette Packs Per Day: 0.5 Years Smoked: (onset 14yo, 1ppd x 42yrs, now 1/2ppd, 40pyh) Packs Per Year: 0 e-Cigarette/Vaping Use: Never Used Second Hand Smoke Exposure: Yes service: Yes ([employer]) Current occupational status: disabled Cognitive needs: No Hearing needs: No Vision needs: Yes Questionnaire Thrive Questionnaire Date Thrive assessed: 01/14/22 EZEKIEL-7 AMB Questionnaire EZEKIEL-7 Date EZEKIEL - 7 assessed: 01/14/22 Source: Developed by Drs. Edwin Pinto, Kinjal Allen, Franco Archibald and colleagues, with an educational sonia from [employer]. Review of Systems Const Reports as per HPI Physical exam (Primary Care) Vital Signs: Last Vital Signs Pulse 83 11/26/23 15:24 BP 118/62 11/26/23 15:24 Pulse Ox 96 11/26/23 15:24 Oxygen Delivery Method Room Air 11/26/23 15:24 BMI result Body Mass Index 20.2 Tobacco/Smoking Status: Tobacco use Status Tobacco use date assessed 11/26/23 11/26/23 15:27 Patient Tobacco Use Status Current everyday Tobacco 11/26/23 15:27 Tobacco use type Cigarette 11/26/23 15:27 e-Cigarette/Vaping Use Never Used 11/26/23 15:27 Thrive Assessment: Date of Thrive Assessment Date Thrive assessed 01/14/22 11/26/23 15:27 Const General: cooperative Orientation/consciousness: patient oriented x3 Resp Effort & Inspection: normal respiratory effort Auscultation: diminished lung sounds Cardio Rate: regular rate Rhythm: regular rhythm Heart sounds: S1 normal heart sound present and S2 normal heart sound present Neuro General: patient oriented x3 Extrem Right lower extremity: no edema Left lower extremity: no edema Psych Appearance: grossly normal Mental Status: mental status grossly normal Speech and movement: Normal speech and movement present Affect: normal affect Attitude: cooperative Thought process: Normal thought process present Thought content: Normal thought content present Insight: Good insight present (Psych) Judgement: Good judgement present (Psych) Assessment and Plan Assessment & Plan (1) Dyslipidemia: Code(s): E78.5 - Hyperlipidemia, unspecified Plan: Labs ordered (2) Smoker: Code(s): F17.200 - Nicotine dependence, unspecified, uncomplicated Plan: Labs ordered, encouraged smoking cessation Plan The patient agreed to the use of a director medical safety for this encounter. Scribed for JILL Parikh by Samantha Salmeron director medical safety, on 11/26/2023 at 15:45 EST. Orders: Orders Comprehensive [place]. Panel Fast Today E78.5 - Hyperlipidemia, unspecified, F17.200 - Nicotine dependence, unspecified, uncomplicated Lipid Panel Today E78.5 - Hyperlipidemia, unspecified, F17.200 - Nicotine dependence, unspecified, uncomplicated Complete Blood Count Auto Diff Today E78.5 - Hyperlipidemia, unspecified, F17.200 - Nicotine dependence, unspecified, uncomplicated TSH reflex Free T4 Today E78.5 - Hyperlipidemia, unspecified, F17.200 - Nicotine dependence, unspecified, uncomplicated UA CC w/rflx Micro + Cult Today E78.5 - Hyperlipidemia, unspecified, F17.200 - Nicotine dependence, unspecified, uncomplicated Medications: Refilled albuterol sulfate 90 mcg/actuation 2 puffs inhalation Q6H PRN 6.7 grams 2RF shortness of breath or wheezing Coding Level of Care Code Est Pt Level 3 (59113) Diagnoses Dyslipidemia E78.5 Smoker F17.200
== END 2023-11-26 16:02 | disposition home or self-care (01) ==
PROVIDERS: PCP Nurse Practitioner Family; Visit Provider Nurse Practitioner Family
DX: E78.5 Hyperlipidemia, unspecified (principal); F17.200 Nicotine dependence, unspecified, uncomplicated
CPT/HCPCS: 99213

== ENCOUNTER 2023-12-30 12:48 | Outpatient (REF) | payer OTHER, SELFPAY ==
--- NOTE | ~2023-12-30 | CT_ITS ---
EXAMINATION: CT CHEST SCREENING CLINICAL INFORMATION: Nicotine dependence, cigarettes, uncomplicated. The patient is a current smoker with a 43 pack-year history of smoking. COMPARISON: X-ray chest 06/15/2023. CT chest 12/09/2022. TECHNIQUE: Multidetector volumetric CT imaging of the chest is performed on a Siemens SOMATOM Perspective scanner without contrast using low dose technique. Additional 2D coronal and sagittal reformatted images and axial 3D maximum intensity projection (MIP) images are generated on the CT workstation. This CT examination was performed using dose optimization techniques as appropriate, variously including the following: *Automated exposure control *Adjustment of mA and/or kV according to patient size (this includes techniques or standardized protocols for targeted exams where dose is matched to indication/reason for exam; i.e. extremities or head) *Use of iterative reconstruction technique DLP: 74 mGy-cm FINDINGS: LUNGS: Moderate emphysematous changes are again seen. Right basilar atelectasis/scarring is again noted. Punctate calcified granuloma noted in the right upper lobe posteriorly and in the left lower lobe. A 5 mm lingular nodule is unchanged (5:287 compare prior 6:278). There are no new, increasing sized or concerning pulmonary nodules. The previously seen nodular area in the right mainstem bronchus has cleared, presumably adherent mucus. MEDIASTINUM: The mediastinum is normal. CORONARY ARTERY CALCIFICATION: None visualized on this study. PLEURA: There is no pleural effusion. No pleural mass or thickening. AXILLA: No lymphadenopathy. UPPER ABDOMEN: Unremarkable. OSSEOUS STRUCTURES: Mild degenerative changes are present in the spine. No bony destructive lesions. CT/CT lung screening IMPRESSION: No suspicious finding to suggest malignancy. Emphysema. ASSESSMENT: Lung-RADS category 2: Benign. RECOMMENDATION: Routine annual low-dose CT screening in 12 months.
== END 2023-12-30 12:49 | disposition home or self-care (01) ==
LOC: HO.CT 12:48
PROVIDERS: PCP Nurse Practitioner Family; Visit Provider Nurse Practitioner Family
DX: Z12.2 Encounter for screening for malignant neoplasm of respiratory organs (principal); F17.210 Nicotine dependence, cigarettes, uncomplicated
CPT/HCPCS: 71271

== ENCOUNTER 2024-04-28 20:11 | Emergency (ER) | payer OTHER, SELFPAY ==
--- NOTE | ~2024-04-28 | CT_ITS ---
EXAMINATION: CT ABDOMEN AND PELVIS WITHOUT CONTRAST CLINICAL INFORMATION: Abdominal pain COMPARISON: None available. TECHNIQUE: Multidetector volumetric imaging was performed from the superior aspect of the liver through the pubic symphysis. Sagittal and coronal reformatted images were obtained on the technologist's workstation. This CT examination was performed using dose optimization techniques as appropriate, variously including the following: *Automated exposure control *Adjustment of mA and/or kV according to patient size (this includes techniques or standardized protocols for targeted exams where dose is matched to indication/reason for exam; i.e. extremities or head) *Use of iterative reconstruction technique DLP: 512.16+ 4.87 +4.87 mGy-cm FINDINGS: LUNG BASES: The visualized lung bases are unremarkable. LIVER, GALLBLADDER, AND BILIARY TREE: The liver is normal in size, shape, and attenuation. No focal hepatic lesion or biliary ductal dilatation is present. The gallbladder is unremarkable with no evidence of radiopaque gallstones, gallbladder wall thickening, or obvious pericholecystic inflammatory changes. PANCREAS: Unremarkable. SPLEEN: Unremarkable. ADRENAL GLANDS: Unremarkable. KIDNEYS AND URETERS: The kidneys are normal in size, shape, and attenuation. No hydronephrosis, hydroureter, or calculi seen. No perinephric stranding. BLADDER: Unremarkable. GASTROINTESTINAL TRACT: There are scattered diverticula of the colon. There is no diverticulitis. There is no bowel wall thickening /edema. There is no bowel obstruction. There is a moderate volume of stool in the colon. The appendix is normal . The small bowel loops are unremarkable. The stomach is normal. There is no hiatal hernia. ABDOMINAL WALL: No significant hernia is appreciated. LYMPH NODES: Normal. VASCULAR: Scattered vascular calcifications. PELVIC VISCERA: Unremarkable. OSSEOUS STRUCTURES: Unremarkable. CT/CT abdomen pelvis wo IV con IMPRESSION: 1. No acute abnormality CT scan abdomen pelvis. 2. Diverticulosis of colon. No acute change of the bowel. Fleischner guidelines were followed. Electronically signed by: Desean Carson MD 04/28/2024 11:45 PM EDT
--- NOTE | ~2024-04-28 | CT_ITS ---
EXAMINATION: CT HEAD WITHOUT CONTRAST CLINICAL INFORMATION: Mental status change. COMPARISON: None. TECHNIQUE: Contiguous axial imaging was performed from the skull base to vertex without intravenous administration of contrast. Coronal and sagittal reformatted images are performed at the CT scanner. This CT examination was performed using dose optimization techniques as appropriate, variously including the following: *Automated exposure control *Adjustment of mA and/or kV according to patient size (this includes techniques or standardized protocols for targeted exams where dose is matched to indication/reason for exam; i.e. extremities or head) *Use of iterative reconstruction technique DLP: 1237 mGy-cm. FINDINGS: There is no evidence of acute intracranial hemorrhage or territorial infarction. No abnormal mass-effect or midline shift is seen. Moreno to white matter differentiation is well preserved. No extra-axial fluid collections are identified. The ventricles are normal in size. There is no abnormal attenuation within the brain parenchyma. There is no osseous abnormality. The mastoid air cells and visualized portions of the paranasal sinuses are well-aerated. CT/CT head/brain wo IV con IMPRESSION: No acute intracranial pathology. Electronically signed by: Desean Carson MD 04/28/2024 11:36 PM EDT
--- NOTE | ~2024-04-28 | XR_ITS ---
EXAMINATION: XR CHEST CLINICAL INFORMATION: Mental status change. COMPARISON: Chest x-ray June 15, 2023 TECHNIQUE: Frontal view of the chest was obtained. 8:39 PM FINDINGS: No significant abnormality is noted involving the heart, lungs, mediastinum, bony thorax or soft tissues. XR/XR chest 1V IMPRESSION: Unremarkable examination. Electronically signed by: Desean Carson MD 04/28/2024 11:51 PM EDT RP
[2024-04-28 20:17] LABS: Glucose, Whole Blood 95 mg/dL (60-115)
--- NOTE | 2024-04-28 20:21 | ECG_ITS ---
Test Reason : AMS Blood Pressure : / mmHG Vent. Rate : 088 BPM Atrial Rate : 088 BPM P-R Int : 154 ms QRS Dur : 082 ms QT Int : 366 ms P-R-T Axes : 079 082 066 degrees QTc Int : 442 ms Normal sinus rhythm Possible Left atrial enlargement Borderline ECG No previous ECGs available Referred By: Milka Murguia Electronically Signed By:SIM SAUCEDO
--- NOTE | 2024-04-28 20:23 | ED.GENADULT ---
HPI - General Adult General Chief complaint: Stroke Stated complaint: ams, headache, fell x1wk ago Time Seen by Provider: 04/28/24 20:15 Source: patient Mode of arrival: ambulatory Limitations: no limitations History of Present Illness ED Provider: DR. Murguia HPI narrative: A 58-year-old male brought in by ambulance as a stroke protocol. Patient sustained a mechanical fall 4 days ago at work and sustained head injury and left middle finger small laceration that probably needed suture but patient did not seek medical attention then, now complaining of left middle finger pain and incision is likely infected, patient started to have headache at work today and stomach ache with 1 time nonbloody watery diarrhea and 1 time vomiting patient had to leave work to go home, patient declined using drugs. Patient in the ED shows no symptoms of acute stroke. During the exam patient smell alcohol on breath however patient declined drinking any alcohol today. Related Data Home Medications ?Medication ?Instructions ?Recorded ?Confirmed citalopram 20 mg tablet (Celexa) 20 mg PO DAILY 07/24/20 07/27/23 lorazepam 1 mg tablet 1 mg PO TID 07/24/20 07/27/23 quetiapine 50 mg tablet (Seroquel) 50 mg PO BEDTIME 07/24/20 07/27/23 Previous Rx's ?Medication ?Instructions ?Recorded miscellaneous medical supply #1 ea 07/24/20 sennosides 8.6 mg tablet (Natural 8.6 mg PO BEDTIME constipation #90 01/06/22 Senna Laxative) tabs atorvastatin 20 mg tablet 20 mg PO BEDTIME #90 tabs 02/02/23 nebulizer accessories #1 ea 05/27/23 nebulizers #1 ea 05/27/23 ipratropium 0.5 mg-albuterol 3 mg 3 ml inhalation Q6-8H PRN wheezing 06/02/23 (2.5 mg base)/3 mL nebulization #90 mL soln polyethylene glycol 3350 17 238 g PO ONCE 1 day #238 grams 06/19/23 gram/dose oral powder (Miralax) [id number] 300 mcg-K 60 1 tab PO DAILY #90 tabs 02/03/24 mcg-lycop 600 mcg-lutein 300 mcg tablet fluticasone furoate 200 1 inh inhalation DAILY #180 ea 07/08/24 mcg-vilanterol 25 mcg/dose inhalation powder montelukast 10 mg tablet 10 mg PO DAILY #90 tabs 03/14/24 albuterol sulfate 90 mcg/actuation 2 puff inhalation Q6H PRN 04/19/24 aerosol inhaler shortness of breath or wheezing #6.7 grams doxycycline hyclate 100 mg tablet 100 mg PO BID #20 tabs 04/29/24 Allergies Allergy/AdvReac Type Severity Reaction Status Date / Time No Known Allergies Allergy Verified 04/28/24 20:27 [No Known Allergies*] Review of Systems Review of Systems: All other systems are reviewed and are negative Constitutional: Reports as per HPI and Reports no additional constitutional complaints Eyes: Reports as per HPI and Reports no additional eye complaints Reports system reviewed and no additional complaints, except as documented Cardiovascular: Reports as per HPI and Reports no additional cardiovascular complaints Respiratory: Reports as per HPI and Reports no additional respiratory complaints Gastrointestinal: Reports as per HPI and Reports no additional gastrointestinal complaints Genitourinary: Reports no additional female genitourinary complaints Musculoskeletal: Reports no additional musculoskeletal complaints Skin/Breast: Reports system reviewed and no additional complaints, except as docu Psychiatric: Reports no additional psychiatric complaints Endocrine: Reports no additional endocrine complaints Hematologic/Lymphatic: Reports no additional hematologic/lymphatic complaints Allergic/Immunologic: Reports no additional allergic/immunologic complaints Reports system reviewed and no additional complaints, except as documented and Reports Abnormal speech present [facility] Past Medical History Medical History Hyperlipidemia Anxiety COPD (chronic obstructive pulmonary disease) Smoker Leukocytosis Nicotine dependence, cigarettes, uncomplicated Dyslipidemia Surgical History History of esophagogastroduodenoscopy (EGD) History of colonoscopy History of total replacement of right shoulder joint Family History Family History Father Diabetes Heavy drinker of alcohol Substance use disorder Mother Heart attack Heavy drinker of alcohol Substance use disorder Sister Substance use disorder Mental health disorder Social History Social History Household Members: Significant Other Housing: Apartment Alcohol intake: never Patient Tobacco Use Status: Current everyday Tobacco user Tobacco use type: Cigarette Cigarette Packs Per Day: 0.5 Years Smoked: (onset 14yo, 1ppd x 42yrs, now 1/2ppd, 40pyh) Smoked in Last 30 Days: Yes e-Cigarette/Vaping Use: Never Used Second Hand Smoke Exposure: Yes Use of substances other than those prescribed or required for medical reasons: No Advance Directives: No Advance Directives Information Provided: No Do you have a plan to hurt others: No Plan service: Yes ([employer]) Current occupational status: disabled Cognitive needs: No Hearing needs: No Vision needs: Yes Physical Exam ED Vital Signs: Vital Signs - 24 hr 04/28/24 20:25 04/28/24 22:29 04/29/24 00:04 Temperature 98.1 F 97.8 F Pulse Rate 91 87 73 Respiratory Rate 13 16 15 Blood Pressure 110/77 106/68 97/60 Pulse Oximetry 97 97 96 Oxygen Delivery Method Room Air Room Air Room Air BMI result Body Mass Index 21.2 Vital signs have been reviewed and appear to be correct. Blood pressure elevated. Heart rate normal. Respiratory rate normal. Temperature normal. Oxygen saturation normal. Appearance: Alert. Oriented X3. No acute distress. Head: Normal external exam. Normocephalic. Atraumatic. No Rivera signs noted. No raccoon eyes noted Eyes: PERRLA. EOMI. Conjunctiva and sclera normal. Eyelids normal. ENT: TM's Normal. Pharynx normal. Uvula midline. Moist mucous membranes. No trismus noted. No drooling noted. No muffled voice noted. Neck: Normal inspection. Neck supple. FROM. No adenopathy. Thyroid Normal. No meningeal signs. No neck mass noted. CVS: Normal heart rate and rhythm. Heart sound normal. No murmurs noted. Pulses normal throughout. Respiratory: No respiratory distress. Painless inspiration. Breath sounds normal. No wheezes/rales/rhonchi noted. Chest nontender. No accessory muscle usage noted or decreased air movement noted. Abdomen: Soft and nontender. Bowel sounds normal in all 4 quadrants. No distention noted. No organomegaly noted. No visible injury noted. Back: No CVA tenderness. Full range of motion noted. Skin: Skin warm and dry. Normal skin color. Normal skin turgor. No rashes/lesions/lacerations noted. Extremities: Left hand exam: Left middle finger with 1 cm transverse old laceration on the proximal PIP on the dorsal aspect, with some tenderness, and redness around it, no fusiform swelling of the finger, no fluctuation, no drainage. Neuro: Oriented X 3. Cranial nerve exam: II-XII are grossly intact No motor deficit. No sensory deficit. Reflexes normal. NIH Stroke Scale Internal: Initial- Upon Arrival Level of Consciousness: Alert Level of Consciousness Questions: Answers both questions correctly Level of Consciousness Commands: Performs both tasks correctly Best Gaze: Normal Visual: No visual loss Facial Palsy: Normal Motor Arm (Right): No drift Motor Arm (Left): No drift Motor Leg (Right): No drift Motor Leg (Left): No drift Limb Ataxia: Absent Sensory: Normal Best Language: No aphasia Dysarthia: Normal Extinction and Inattention: No abnormality Score: 0 Course Reevaluation(s) Reevaluation #1: 1. alcohol intoxication patient is more sober now, significant other at the bedside will take him home. 2. Infected old laceration of the left 3rd finger no tenosynovitis is appreciated, will start the patient on doxycycline and follow-up with Dr. Thomas at the hand clinic.. 3. Initially patient brought in as a stroke protocol patient is neurologically intact, head CT is unremarkable, ambulating in the emergency department with no deficit. 4. Leukocytosis likely secondary to finger infection. 5. Patient vomited likely secondary to acute alcoholic gastritis. Time: 00:40 Medications Administered Discontinued Medications Generic Name Dose Route Start Last Admin Trade Name Freq PRN Reason Stop Dose Admin Sodium Chloride 1,000 mls @ 999 mls/hr 04/28/24 20:21 04/28/24 22:23 Ns IV 04/28/24 21:21 Infused .Q1H1M ONE Infusion Medical Decision Making Differential Diagnosis Differential Diagnoses: The differential diagnosis associated with the presentation includes (Hemorrhagic stroke, ischemic stroke, tenosynovitis, left 3rd finger cellulitis, alcohol intoxication, electrolyte derangement, severe anemia) Admission/Observation Consideration of admission/observation: Escalation of care including admission/observation considered Lab Data MDM Lab Attestation statement: I reviewed the patient's lab results. 04/28/24 20:13 04/28/24 20:13 Labs: Lab Results 04/28/24 04/28/24 04/28/24 Range/Units 20:13 20:14 20:35 WBC 16.4 H (4.8-10.8) X10*3/uL RBC 4.88 (4.60-5.80) X10*6/uL Hgb 14.8 (14.0-18.0) g/dl Hct 44.7 (42.0-52.0) % MCV 91.6 (80.0-98.0) fL MCH 30.3 (27.0-33.0) pg MCHC 33.1 (31.0-36.0) g/dl RDW 14.1 (11.0-16.0) % Plt Count 207 (160-400) X10*3/uL MPV 12.1 (9.4-12.4) fL Immature Gran % (Auto) 0.8 H (0.0-0.4) % Neut % (Auto) 73.0 (45-73) % Lymph % (Auto) 18.5 L (20-40) % Yates % (Auto) 5.6 (2-11) % Eos % (Auto) 1.3 (0-4) % Baso % (Auto) 0.8 (0-2) % Lymph # (Auto) 3.0 (1.2-4.9) X10*3/uL Yates # (Auto) 0.9 (0.1-1.2) X10*3/uL Eos # (Auto) 0.2 (0.0-0.4) X10*3/uL Baso # (Auto) 0.1 (0.0-0.2) X10*3/uL Abs Immat Gran (auto) 0.13 H (0.00-0.03) X10*3/uL Absolute Neuts (auto) 11.9 H (2.0-8.3) x10*3/uL Absolute Nucleated RBC 0.000 (0.0-0.012) X10*3/uL Nucleated RBC % (auto) 0.0 (0.0-0.2) /100WBC Hold Purple Top SEE NOTE PT 11.9 (11.1-13.3) SEC INR 1.0 (0.9-1.1) Sodium 145 (135-145) mmol/L Potassium 4.5 (3.3-5.1) mmol/L Chloride 113 H (96-108) mmol/L Carbon Dioxide 23 (22-29) mmol/L Anion Gap 14 (12-20) BUN 13 (9-16) mg/dL Creatinine 0.86 (0.5-1.4) mg/dL Estim Creat Clear Calc 77.1 Estimated GFR > 60 POC Glucose 95 (60-115) mg/dL Random Glucose 86 (60-115) mg/dL Calcium 9.5 (8.4-10.2) mg/dL Total Bilirubin 0.2 (0.0-1.0) mg/dL Direct Bilirubin < 0.2 (0.0-0.5) mg/dL AST 20 (5-37) U/L ALT 18 (0-40) U/L Alkaline Phosphatase 67 (39-117) U/L Troponin I High Sens < 2.7 (<3.5-35.0) ng/L Total Protein 6.5 (6.5-8.0) g/dL Albumin 4.2 (3.5-5.0) g/dL Lipase 28 (8-78) U/L Urine Color Urine Appearance Urine pH (5.0-9.0) Ur Specific Sprague (1.005-1.025) Urine Protein (Neg-Trace) mg/dL Urine Glucose (UA) (Negative) mg/dL Urine Ketones (Negative) mg/dL Urine Blood (Negative) Urine Nitrite (Negative) Ur Leukocyte Esterase (Negative) Urine Opiates Screen (Not Detect) Ur Buprenorphine Scrn (Not Detect) ng/mL Ur Oxycodone Screen (Not Detect) ng/mL Urine Methadone Screen (Not Detect) ng/mL Urine Fentanyl Screen (Not Detect) Ur Barbiturates Screen (Not Detect) Ur Phencyclidine Scrn (Not Detect) Ur Amphetamines Screen (Not Detect) U Benzodiazepines Scrn (Not Detect) Urine Cocaine Screen (Not Detect) U Marijuana (THC) Screen (Not Detect) Ethyl Alcohol 148 mg/dL Influenza Type A (PCR) (Negative) Influenza Type B (PCR) (Negative) RSV RNA Qual (PCR) (Negative) SARS-CoV-2 RNA (RT-PCR) (Negative) 04/28/24 04/28/24 Range/Units 21:00 22:33 WBC (4.8-10.8) X10*3/uL RBC (4.60-5.80) X10*6/uL Hgb (14.0-18.0) g/dl Hct (42.0-52.0) % MCV (80.0-98.0) fL MCH (27.0-33.0) pg MCHC (31.0-36.0) g/dl RDW (11.0-16.0) % Plt Count (160-400) X10*3/uL MPV (9.4-12.4) fL Immature Gran % (Auto) (0.0-0.4) % Neut % (Auto) (45-73) % Lymph % (Auto) (20-40) % Yates % (Auto) (2-11) % Eos % (Auto) (0-4) % Baso % (Auto) (0-2) % Lymph # (Auto) (1.2-4.9) X10*3/uL Yates # (Auto) (0.1-1.2) X10*3/uL Eos # (Auto) (0.0-0.4) X10*3/uL Baso # (Auto) (0.0-0.2) X10*3/uL Abs Immat Gran (auto) (0.00-0.03) X10*3/uL Absolute Neuts (auto) (2.0-8.3) x10*3/uL Absolute Nucleated RBC (0.0-0.012) X10*3/uL Nucleated RBC % (auto) (0.0-0.2) /100WBC Hold Purple Top PT (11.1-13.3) SEC INR (0.9-1.1) Sodium (135-145) mmol/L Potassium (3.3-5.1) mmol/L Chloride (96-108) mmol/L Carbon Dioxide (22-29) mmol/L Anion Gap (12-20) BUN (9-16) mg/dL Creatinine (0.5-1.4) mg/dL Estim Creat Clear Calc Estimated GFR POC Glucose (60-115) mg/dL Random Glucose (60-115) mg/dL Calcium (8.4-10.2) mg/dL Total Bilirubin (0.0-1.0) mg/dL Direct Bilirubin (0.0-0.5) mg/dL AST (5-37) U/L ALT (0-40) U/L Alkaline Phosphatase (39-117) U/L Troponin I High Sens (<3.5-35.0) ng/L Total Protein (6.5-8.0) g/dL Albumin (3.5-5.0) g/dL Lipase (8-78) U/L Urine Color Yellow Urine Appearance Clear Urine pH 6.0 (5.0-9.0) Ur Specific Sprague 1.015 (1.005-1.025) Urine Protein Negative (Neg-Trace) mg/dL Urine Glucose (UA) Negative (Negative) mg/dL Urine Ketones Trace (Negative) mg/dL Urine Blood Negative (Negative) Urine Nitrite Negative (Negative) Ur Leukocyte Esterase Negative (Negative) Urine Opiates Screen Not Detected (Not Detect) Ur Buprenorphine Scrn Not Detected (Not Detect) ng/mL Ur Oxycodone Screen Not Detected (Not Detect) ng/mL Urine Methadone Screen Not Detected (Not Detect) ng/mL Urine Fentanyl Screen Not Detected (Not Detect) Ur Barbiturates Screen Not Detected (Not Detect) Ur Phencyclidine Scrn Not Detected (Not Detect) Ur Amphetamines Screen Not Detected (Not Detect) U Benzodiazepines Scrn Not Detected (Not Detect) Urine Cocaine Screen Not Detected (Not Detect) U Marijuana (THC) Screen Not Detected (Not Detect) Ethyl Alcohol mg/dL Influenza Type A (PCR) NEGATIVE (Negative) Influenza Type B (PCR) NEGATIVE (Negative) RSV RNA Qual (PCR) NEGATIVE (Negative) SARS-CoV-2 RNA (RT-PCR) NEGATIVE (Negative) Independent Interpretation I performed an independent interpretation of an: Plain X-Ray (Chest: No acute intrathoracic pathology.) and CT Scan (No acute intracranial pathology.) Radiology Impression Discussion of test interpretation with radiology: I have reviewed the radiologist's reading. Discharge Plan Discharge Clinical Impression: Alcohol intoxication, Acute alcoholic gastritis, Cellulitis of left middle finger Patient Disposition: Home, Self-Care Instructions: Gastritis (DC), Cellulitis (ED), Alcohol Intoxication (ED) Prescriptions: New doxycycline hyclate 100 mg tablet 100 mg PO BID Qty: 20 0RF No Action atorvastatin 20 mg tablet 20 mg PO BEDTIME Qty: 90 0RF Rx Instructions: schedule next PCP appt for future refills (DME) nebulizers Misc See Rx Instructions .Route Qty: 1 0RF Rx Instructions: As directed (DME) nebulizer accessories Kit See Rx Instructions .Route Qty: 1 0RF Rx Instructions: As directed ipratropium-albuterol 0.5 mg-3 mg(2.5 mg base)/3 mL solution for nebulization 3 ml inhalation Q6-8H PRN (Reason: wheezing) Qty: 90 0RF polyethylene glycol 3350 [Miralax] 17 gram/dose powder 238 g PO ONCE 1 Days Qty: 238 0RF Rx Instructions: Take as directed by mouth the day before your procedure. ck-vcs-oevka-[id number]-awzrlhf-ycpuix 581-43-580-300 mcg tablet 1 tab PO DAILY Qty: 90 1RF fluticasone furoate-vilanterol 200-25 mcg/dose blister with device 1 inh inhalation DAILY Qty: 180 1RF montelukast 10 mg tablet 10 mg PO DAILY Qty: 90 1RF albuterol sulfate 90 mcg/actuation HFA aerosol inhaler 2 puff inhalation Q6H PRN (Reason: shortness of breath or wheezing) Qty: 6.7 2RF quetiapine [Seroquel] 50 mg tablet 50 mg PO BEDTIME lorazepam 1 mg tablet 1 mg PO TID citalopram [Celexa] 20 mg tablet 20 mg PO DAILY (DME) miscellaneous medical supply Pad See Rx Instructions .ROUTE .MEDSUPPLY Qty: 1 0RF Rx Instructions: As directed, heating pad sennosides [Natural Senna Laxative] 8.6 mg tablet 8.6 mg PO BEDTIME Qty: 90 3RF Referrals: Magdy Resendez, [employer] [Primary Care Provider] - Lucía Thomas MD [Physician] - Print Language: Sudanese
[2024-04-28 20:25] VITALS: BP 110/77; BP 98/63; PULSE 91; PULSE 97; RESP 13; TEMP 36.7; O2SAT 97; BMI 21.2
[2024-04-28 20:28] LABS: MANUAL DIFF FLAG NO
[2024-04-28] MEDS: 0.9 % Sodium Chloride 1,000 ML 999 ML IV (20:37)
[2024-04-28 20:40] LABS: Basophils Absolute Auto 0.1 X10*3/uL (0.0-0.2); Basophils Percent Auto 0.8 % (0-2); Eosinophils Absolute Auto 0.2 X10*3/uL (0.0-0.4); Eosinophils Percent Auto 1.3 % (0-4); Hematocrit 44.7 % (42.0-52.0); Hemoglobin 14.8 g/dl (14.0-18.0); Imm Gran Abs Auto 0.13 X10*3/uL (0.00-0.03); Imm Gran Pct Auto 0.8 % (0.0-0.4); Lymphocytes Percent Auto 18.5 % (20-40); Mean Corpuscular HGB Conc 33.1 g/dl (31.0-36.0); Mean Corpuscular Hemoglobin 30.3 pg (27.0-33.0); Mean Corpuscular Volume 91.6 fL (80.0-98.0); Mean Platelet Volume 12.1 fL (9.4-12.4); Monocytes Absolute Auto 0.9 X10*3/uL (0.1-1.2); Monocytes Percent Auto 5.6 % (2-11); Neutrophils Absolute Auto 11.9 x10*3/uL (2.0-8.3); Platelet Count 207 X10*3/uL (160-400); Red Blood Count 4.88 X10*6/uL (4.60-5.80); Red Cell Distribution Width 14.1 % (11.0-16.0); White Blood Count 16.4 X10*3/uL (4.8-10.8)
[2024-04-28 20:51] LABS: Prothrombin Time 11.9 SEC (11.1-13.3)
--- NOTE | 2024-04-28 20:54 | PC.NURSE ---
late entry- pt arrived to ed at 2012. per ems pt had fall 1 week ago, left work today with headache and pt gf reported increased ams. ems called stroke alert prior to arrival. ems unable to obtain FAST ED due to pt being lethargic. upon arrival pt placed on weighted bed, weight obtained. called to bedside for stroke assessment. pt able to follow commands but appears lethargic. pt brought to CT for dry scan. pt brought to room, ekg and labs obtained. at bedside to reassess pt, pt able to follow commands, is a&ox3. pt denies etoh and drug use. pt reports 1 week ago during his fall he tripped off the side walk, hit head and face, pt lip noted to be swollen at this time. pt also reporting 10/10 abdominal pain. ems placed 18G left ac, this rn placed 20G to the right forearm. pt normal sinus on tele 80-85. pt noted to be asleep but is alert to name and touch.
--- NOTE | 2024-04-28 21:04 | PC.NURSE ---
swallow evaluation completed at this time, pt tolerated well and was alert. no delayed efforts noted.
[2024-04-28 21:06] LABS: Troponin-I High Sensitivity < 2.7 ng/L (<3.5-35.0)
[2024-04-28 21:15] LABS: Alanine Aminotransferase 18 U/L (0-40); Albumin Level 4.2 g/dL (3.5-5.0); Alkaline Phosphatase 67 U/L (39-117); Anion Gap 14 (12-20); Aspartate Amino Transferase 20 U/L (5-37); Bilirubin Direct < 0.2 mg/dL (0.0-0.5); Bilirubin Total 0.2 mg/dL (0.0-1.0); Blood Urea Nitrogen 13 mg/dL (9-16); Calcium 9.5 mg/dL (8.4-10.2); Carbon Dioxide 23 mmol/L (22-29); Chloride 113 mmol/L (96-108); Creatinine Clr Calc Pharmacy 77.1; Estimated Glomerular Filt Rate > 60; Ethanol 148 mg/dL; Glucose Random 86 mg/dL (60-115); Lipase 28 U/L (8-78); Potassium 4.5 mmol/L (3.3-5.1); Sodium 145 mmol/L (135-145); Total Protein 6.5 g/dL (6.5-8.0)
[2024-04-28 21:42] LABS: Influenza A PCR NEGATIVE (Negative); Influenza B PCR NEGATIVE (Negative); Resp Syncy Virus RNA Qual PCR NEGATIVE (Negative); SARS COV2 PCR INHOUSE NEGATIVE (Negative)
[2024-04-28 22:29] VITALS: BP 106/68; PULSE 87; RESP 16; TEMP 36.6; O2SAT 97
[2024-04-28 22:57] LABS: Appearance Urine Clear; Color Urine Yellow; Glucose Urine UA Negative (Negative); Leukocyte Esterase Urine Negative (Negative); Nitrite Urine Negative (Negative); Specific Gravity - Urine 1.015 (1.005-1.025); Urine Blood Negative (Negative); Urine Ketones Trace mg/dL (Negative); Urine Protein Negative (Neg-Trace)
[2024-04-28 22:58] LABS: Amphetamine Screen Urine Not Detected (Not Detect); Barbiturates, Urine Not Detected (Not Detect); Benzodiazepines Screen Urine Not Detected (Not Detect); Buprenorphine Scr Not Detected (Not Detect); Cannabinoid Screen Urine Not Detected (Not Detect); Cocaine Screen Urine Not Detected (Not Detect); Fentanyl, urine Not Detected (Not Detect); Methadone Screen, Urine Not Detected (Not Detect); Opiate Screen Urine Not Detected (Not Detect); Oxycodone Screen Urine Not Detected (Not Detect); Phencyclidine Screen Urine Not Detected (Not Detect)
[2024-04-29 00:04] VITALS: BP 97/60; PULSE 73; RESP 15; O2SAT 96
[2024-04-29] MEDS: Doxycycline Monohydrate 100 MG CAPSULE PO (00:41)
[2024-04-29 01:09] VITALS: BP 103/69; PULSE 79; RESP 16; TEMP 36.8; O2SAT 96
== END 2024-04-29 01:24 | disposition home or self-care (01) ==
PROVIDERS: Emergency Provider Emergency Medicine; PCP Nurse Practitioner Family
DX: F10.288 Alcohol dependence with other alcohol-induced disorder (principal); K29.20 Alcoholic gastritis without bleeding; Y90.6 Blood alcohol level of 120-199 mg/100 ml; L03.012 Cellulitis of left finger; M79.645 Pain in left finger(s); Z03.818 Encounter for observation for suspected exposure to other biological agents ruled out; E78.5 Hyperlipidemia, unspecified; J44.9 Chronic obstructive pulmonary disease, unspecified; F17.210 Nicotine dependence, cigarettes, uncomplicated; Z79.02 Long term (current) use of antithrombotics/antiplatelets; Z79.899 Other long term (current) drug therapy
CPT/HCPCS: 0241U; 36415; 70450; 71045; 74176; 80048; 80076; 80307; 81003; 82947; 83690; 84484; 85025; 85610; 93005; 99285

== ENCOUNTER 2024-05-05 07:41 | Outpatient (AMB) | payer OTHER, SELFPAY ==
--- NOTE | 2024-05-05 07:14 | A.OFFPC_ITS ---
Intake Visit Reasons: ED F/u [phone] Allergies No Known Allergies [No Known Allergies*] Allergy (Verified 04/28/24 20:27) Tobacco use date assessed: 11/26/23 Dental Screening Dental Screen Date: 11/26/23 HPI ED F/u [phone] HPI Details Pt was seen in the ER on 04/28 after a fall with head injury and left middle finger laceration at work 4 days prior. Pt c/o headache and left middle finger pain. He was started on doxycycline for finger infection. It was recommended that pt follow up with a hand specialist. Pt's WBC count was elevated likely due to infection. Head CT was unremarkable. Pt had an episode of vomiting likely due to acute alcoholic gastritis. Pt reports doing well today. He reports that his finger is healing well. Pt states that he has not been drinking alcohol. Denies fever, chills, foul smelling drainage, and dizziness. [facility] Medical History Hyperlipidemia Anxiety COPD (chronic obstructive pulmonary disease) Smoker Leukocytosis Nicotine dependence, cigarettes, uncomplicated Dyslipidemia Surgical History History of esophagogastroduodenoscopy (EGD) History of colonoscopy History of total replacement of right shoulder joint Family History Father Diabetes Heavy drinker of alcohol Substance use disorder Mother Heart attack Heavy drinker of alcohol Substance use disorder Sister Substance use disorder Mental health disorder Social History Household Members: Significant Other Housing: Apartment Alcohol intake: never Patient Tobacco Use Status: Current everyday Tobacco user Tobacco use type: Cigarette Cigarette Packs Per Day: 0.5 Years Smoked: (onset 14yo, 1ppd x 42yrs, now 1/2ppd, 40pyh) Packs Per Year: 0 e-Cigarette/Vaping Use: Never Used Second Hand Smoke Exposure: Yes service: Yes ([employer]) Current occupational status: disabled Cognitive needs: No Hearing needs: No Vision needs: Yes Questionnaire Thrive Questionnaire Date Thrive assessed: 01/14/22 EZEKIEL-7 AMB Questionnaire EZEKIEL-7 Date EZEKIEL - 7 assessed: 01/14/22 Source: Developed by Drs. Edwin Pinto, Kinjal Allen, Franco Archibald and colleagues, with an educational sonia from [employer]. Review of Systems Const Reports as per HPI Physical exam (Primary Care) Tobacco/Smoking Status: Tobacco use Status Tobacco use date assessed 11/26/23 05/05/24 07:18 Patient Tobacco Use Status Current everyday Tobacco 05/05/24 07:18 Tobacco use type Cigarette 05/05/24 07:18 e-Cigarette/Vaping Use Never Used 05/05/24 07:18 Thrive Assessment: Date of Thrive Assessment Date Thrive assessed 01/14/22 05/05/24 07:18 Const General: cooperative Orientation/consciousness: patient oriented x3 Neuro General: patient oriented x3 Psych Appearance: grossly normal Mental Status: mental status grossly normal Speech and movement: Clear speech present Affect: normal affect Attitude: cooperative Thought process: Normal thought process present Thought content: Normal thought content present Insight: Good insight present (Psych) Judgement: Good judgement present (Psych) Telehealth Telehealth Telehealth Platform: Invaluable Location of provider rendering services: practice address Location of patient: address on file Patient Identification confirmed using: Name, : Yes Telehealth method: video Patient verbally consented to treatment: Yes Patient verbally consented to billing insurance company: Yes Patient informed of any privacy concerns related to visit: Yes Minutes spent on Phone/Video with Pt.: 10 Assessment and Plan Assessment & Plan (1) Leukocytosis: Code(s): D72.829 - Elevated white blood cell count, unspecified Plan: Finger is healing well, labs ordered (2) Fall: Code(s): W19.XXXA - Unspecified fall, initial encounter Plan: Doing well, labs ordered (3) Cellulitis of finger: Code(s): L03.019 - Cellulitis of unspecified finger Plan: Finger is healing well, labs ordered Plan The patient agreed to the use of a senior medical billing specialist for this encounter. Scribed for JILL Parikh by Samantha Salmeron senior medical billing specialist, on 05/05/2024 at 07:15 EST. Orders: Orders Complete Blood Count Auto Diff Today D72.829 - Elevated white blood cell count, unspecified, L03.019 - Cellulitis of unspecified finger, W19.XXXA - Unspecified fall, initial encounter Comprehensive Met. Panel Today D72.829 - Elevated white blood cell count, unspecified, L03.019 - Cellulitis of unspecified finger, W19.XXXA - Unspecified fall, initial encounter Coding Level of Care Code Tele Est Pt Level 3 (72115) Diagnoses Leukocytosis D72.829 Fall W19.XXXA Cellulitis of finger L03.019
== END 2024-05-05 09:40 | disposition home or self-care (01) ==
LOC: HO.HMGC 07:41
PROVIDERS: PCP Nurse Practitioner Family; Visit Provider Nurse Practitioner Family
DX: D72.829 Elevated white blood cell count, unspecified (principal); W19.XXXA Unspecified fall, initial encounter; L03.012 Cellulitis of left finger
CPT/HCPCS: 99213

== ENCOUNTER 2024-05-10 08:27 | Outpatient (REF) | payer OTHER, SELFPAY ==
[2024-05-10 10:20] LABS: Basophils Absolute Auto 0.1 X10*3/uL (0.0-0.2); Basophils Percent Auto 0.9 % (0-2); Eosinophils Absolute Auto 0.3 X10*3/uL (0.0-0.4); Eosinophils Percent Auto 2.1 % (0-4); Hematocrit 49.2 % (42.0-52.0); Imm Gran Abs Auto 0.14 X10*3/uL (0.00-0.03); Lymphocytes Absolute Auto 2.9 X10*3/uL (1.2-4.9); Lymphocytes Percent Auto 20.9 % (20-40); MANUAL DIFF FLAG SCAN; Mean Corpuscular HGB Conc 32.5 g/dl (31.0-36.0); Mean Corpuscular Hemoglobin 30.7 pg (27.0-33.0); Mean Corpuscular Volume 94.4 fL (80.0-98.0); Monocytes Absolute Auto 1.3 X10*3/uL (0.1-1.2); Monocytes Percent Auto 8.9 % (2-11); Neutrophils Absolute Auto 9.3 x10*3/uL (2.0-8.3); Neutrophils Percent Auto 66.2 % (45-73); PLT CLUMP 1; Red Blood Count 5.21 X10*6/uL (4.60-5.80); SCAN SMEAR FLAG 1
[2024-05-10 10:47] LABS: Mean Platelet Volume 12.5 fL (9.4-12.4); Platelet Count 182 X10*3/uL (160-400); SLIDE REVIEW VERIFIED
[2024-05-10 10:52] LABS: Alanine Aminotransferase 24 U/L (0-40); Albumin Level 4.4 g/dL (3.5-5.0); Alkaline Phosphatase 71 U/L (39-117); Anion Gap 11 (12-20); Aspartate Amino Transferase 17 U/L (5-37); Bilirubin Total 0.5 mg/dL (0.0-1.0); Blood Urea Nitrogen 14 mg/dL (9-16); Calcium 9.7 mg/dL (8.4-10.2); Carbon Dioxide 28 mmol/L (22-29); Chloride 106 mmol/L (96-108); Cholesterol 169 mg/dL (<200); Estimated Glomerular Filt Rate > 60; Glucose Fasting 103 mg/dL (60-99); Glucose Random 103 mg/dL (60-115); HDL Cholesterol 62 mg/dL (>40); LDL Cholesterol Calculated 93 mg/dL (<100); Sodium 141 mmol/L (135-145); TSH reflex Free T4 3.41 uIU/mL (0.32-4.0); Total Protein 7.1 g/dL (6.5-8.0); Triglycerides 74 mg/dL (<150)
== END 2024-05-10 08:28 | disposition home or self-care (01) ==
LOC: HO.HMGCLDS 08:27
PROVIDERS: PCP Nurse Practitioner Family; Visit Provider Nurse Practitioner Family
DX: E78.5 Hyperlipidemia, unspecified (principal); F17.200 Nicotine dependence, unspecified, uncomplicated; D72.829 Elevated white blood cell count, unspecified; L03.019 Cellulitis of unspecified finger; W19.XXXA Unspecified fall, initial encounter
CPT/HCPCS: 36415; 80053; 80061; 84443; 85025

== ENCOUNTER 2024-06-30 10:57 | Outpatient (AMB) | payer OTHER, SELFPAY ==
[2024-06-30 10:58] VITALS: BP 108/70; PULSE 82; O2SAT 97; BMI 18.7
--- NOTE | 2024-06-30 10:58 | A.OFFPC_ITS ---
Vital Signs 06/30/24 10:58 Height 5 ft 6 in Weight 116 lb BMI 18.7 BP 108/70 Blood Pressure Location Rt brachial Position Sitting Pulse 82 Pulse Source Pulse Oximeter Pulse Oximetry (%) 97 Oxygen Delivery Method Room Air Intake Visit Reasons: Annual PE Intake Note: pt is here for annual exam Diplomatic Courier Required: No Allergies No Known Allergies [No Known Allergies*] Allergy (Verified 06/30/24 10:58) Medication List - Last Reconciled 06/30/24 by JILL Prieto albuterol sulfate 90 mcg/actuation 2 puffs inhalation Q6H PRN atorvastatin 20 mg PO BEDTIME citalopram (Celexa) 20 mg PO DAILY fluticasone furoate-vilanterol 200-25 mcg/dose 1 inh inhalation DAILY ipratropium-albuterol 0.5 mg-3 mg(2.5 mg base)/3 mL 3 mL inhalation Q6-8H PRN lorazepam 1 mg PO TID miscellaneous medical supply As directed, heating pad montelukast 10 mg PO DAILY [id number] [phone] mcg 1 tab PO DAILY nebulizer accessories As directed nebulizers As directed polyethylene glycol 3350 (Miralax) 238 grams PO ONCE 1 day quetiapine (Seroquel) 50 mg PO BEDTIME sennosides (Natural Senna Laxative) 8.6 mg PO BEDTIME Tobacco use date assessed: 11/26/23 Dental Screening Dental Screen Date: 11/26/23 HPI Annual PE HPI Details Pt is here for a PE. Will order labs. Colon screen is up to date. Due for PSA, will order. Pt reports a weaker stream (intermittent). Pt goes for low- dose lung CTs. Pt c/o chest pain. He reports that this is intermittent. He reports that this is random and last only seconds. Will do an EKG in office. Will also order echo and stress test. He follows up with pulmonology. [facility] Medical History Hyperlipidemia Anxiety COPD (chronic obstructive pulmonary disease) Smoker Leukocytosis Nicotine dependence, cigarettes, uncomplicated Dyslipidemia Surgical History History of esophagogastroduodenoscopy (EGD) History of colonoscopy History of total replacement of right shoulder joint Family History Father Diabetes Heavy drinker of alcohol Substance use disorder Mother Heart attack Heavy drinker of alcohol Substance use disorder Sister Substance use disorder Mental health disorder Social History Household Members: Significant Other Housing: Apartment Alcohol intake: never Patient Tobacco Use Status: Current everyday Tobacco user Tobacco use type: Cigarette Cigarette Packs Per Day: 0.5 Years Smoked: (onset 14yo, 1ppd x 42yrs, now 1/2ppd, 40pyh) e-Cigarette/Vaping Use: Never Used Second Hand Smoke Exposure: Yes service: Yes ([employer]) Current occupational status: disabled Cognitive needs: No Hearing needs: No Vision needs: Yes Questionnaire PHQ-9 Over the last 2 weeks, how often have you been bothered by any of the following problems? 1. Little interest or pleasure in doing things: not at all 2. Feeling down, depressed, or hopeless: several days 3. Trouble falling or staying asleep, or sleeping too much: not at all 4. Feeling tired or having little energy: several days 5. Poor appetite or overeating: not at all 6. Feeling bad about yourself - or that you are a failure or have let yourself or your family down: not at all 7. Trouble concentrating on things, such as reading the newspaper or watching television: not at all 8. Moving or speaking so slowly that other people could have noticed. Or the opposite - being so fidgety or restless that you have been moving around a lot more than usual: not at all 9. Thoughts that you would be better off or of hurting yourself in some way: not at all Total score: 2 Depression Screening Interpretation: Negative Depression Screening Done: Yes 24026 - PHQ-9 Billing: Yes Source: Developed by Drs. Edwin Pinto, Kinjal Allen, Franco Archibald and colleagues, with an educational sonia from [employer]. Thrive Questionnaire Date Thrive assessed: 06/30/24 I am a: Patient What is your living situation today?: I have a steady place to live Within the past 12 months, did the food you bought not last and you didn't have the money to get more?: Never true Within the past 12 months, did you worry whether your food would run out before you got money to buy more?: Never true Do you have trouble paying for medicines?: No Do you have trouble getting transportation to medical appointments?: No Do you have trouble paying your heating and electricity bill?: No Do you have trouble taking care of your child, family member or friend?: No Do you have trouble with day-to-day activities such as bathing, preparing meals, shopping, managing finances, etc.?: No Are you currently unemployed and looking for a job?: No Are you interested in more education?: No Please select the resources that you would like help with: None Currently or been in a relationship where the following occur: No concerns reported THRIVE Score: 0 AUDIT C Alcohol Use Questionnaire (AUDIT-C) 1. How often do you have a drink containing alcohol?: Monthly or less 2. How many drinks containing alcohol do you have on a typical day when you are drinking?: 1 or 2 3. How often do you have six or more drinks on one occasion?: Never Total Score: 1 Score Reviewed/Action Taken: Yes EZEKIEL-7 AMB Questionnaire EZEKIEL-7 Date EZEKIEL - 7 assessed: 06/30/24 Feeling nervous, anxious, or on edge: 0 = Not at all Not being able to stop or control worryin = Several days Worrying too much about different things: 1 = Several days Trouble relaxin = Several days Being so restless that it is hard to sit still: 1 = Several days Becoming easily annoyed or irritable: 1 = Several days Feeling afraid as if something awful might happen: 0 = Not at all Total EZEKIEL-7 score (0-4 normal; 5-9 mild; 10-14 moderate; 15-21 severe): 5 Source: Developed by Drs. Edwin Pinto, Kinjal Allen, Franco Archibald and colleagues, with an educational sonia from [employer]. EZEKIEL-7 Assessment Billing EZEKIEL-7 Assessment Tool: EZEKIEL-7 Assessment 12394 Review of Systems Const Denies chills and Denies fever(s) Eyes Denies blurry vision ENT Denies vertigo, Denies dizziness and Denies sore throat Card Reports chest pain, Denies diaphoresis, Denies dyspnea and Denies dyspnea on exertion Resp Denies cough, Denies dyspnea, Denies dyspnea on exertion and Denies wheezing GI Denies abdominal pain, Denies melena, Denies hematochezia, Denies constipation, Denies diarrhea and Denies loose stools Denies hematuria Musc Denies numbness and Denies tingling Skin/Breast Denies lesions Neuro Denies vertigo, Denies dizziness, Denies numbness and Denies tingling Psych Denies anxiety, Denies depression, Denies homicidal ideation, Denies suicidal ideation and Denies other (substance abuse) Aller/Immun Denies wheezing Physical exam (Primary Care) Vital Signs: Last Vital Signs Pulse 82 06/30/24 10:58 BP 108/70 06/30/24 10:58 Pulse Ox 97 06/30/24 10:58 Oxygen Delivery Method Room Air 06/30/24 10:58 BMI result Body Mass Index 18.7 Tobacco/Smoking Status: Tobacco use Status Tobacco use date assessed 11/26/23 06/30/24 11:06 Patient Tobacco Use Status Current everyday Tobacco 06/30/24 11:06 Tobacco use type Cigarette 06/30/24 11:06 e-Cigarette/Vaping Use Never Used 06/30/24 11:06 PHQ-9: PHQ-9 Score PHQ-9: Total score 2 06/30/24 11:17 Depression Screening Interpretation: Negative Thrive Assessment: Date of Thrive Assessment Date Thrive assessed 06/30/24 06/30/24 11:06 Currently or been in a relationship where the following occur: No concerns reported Const General: cooperative Nutritional Appearance: well nourished Orientation/consciousness: patient oriented x3 HENMT Head: Yes normal to inspection, Yes normocephalic and Yes atraumatic Ears: TM's normal bilaterally Eyes General: appearance normal, both eyes and all related structures Alignment and Position: alignment normal and position normal Neck Neck: Yes normal visual inspection, Yes no lymphadenopathy and Yes supple Resp Effort & Inspection: normal respiratory effort Auscultation: clear to auscultation bilaterally (dim bilat) Cardio Rate: regular rate Rhythm: regular rhythm Heart sounds: S1 normal heart sound present, S2 normal heart sound present and no murmurs GI Palpation (GI): Soft to palpation and nontender Auscultation: normal bowel sounds Other: KAUSHIK: prostate slightly enlarged, no nodules palpated Male General Exam: Yes normal external exam Penis: normal penis Scrotum: scrotum normal, testes descended bilaterally and no inguinal hernias Testes: no testicular mass Skin Rashes: no rashes Neuro General: patient oriented x3, moves all extremities, no focal motor deficits and deep tendon reflexes 2+ bilaterally Romberg Test: Negative Psych Appearance: grossly normal Mental Status: mental status grossly normal Speech and movement: Normal speech and movement present Affect: normal affect Attitude: cooperative Thought process: Normal thought process present Thought content: Normal thought content present Insight: Good insight present (Psych) Judgement: Good judgement present (Psych) Coding Level of Care Code Est Pt Prev Care 40-64y(74887) Diagnoses Physical exam Z00.00 Screening PSA (prostate specific antigen) Z12.5 Chest pain R07.9 Smoker F17.200 Additional Codes EZEKIEL-7 Assessment Billing - EZEKIEL-7 Assessment Tool: EZEKIEL-7 Assessment 78785 ([id number]) Assessment & Plan Assessment & Plan (1) Physical exam: Code(s): Z00.00 - Encounter for general adult medical examination without abnormal findings Category: Medical Plan: Labs ordered (2) Screening PSA (prostate specific antigen): Code(s): Z12.5 - Encounter for screening for malignant neoplasm of prostate Category: Medical Plan: PSA ordered (3) Chest pain: Code(s): R07.9 - Chest pain, unspecified Category: Medical Plan: EKG done in office, echo and stress test ordered (4) Smoker: Code(s): F17.200 - Nicotine dependence, unspecified, uncomplicated Category: Social Hx Plan: pt understands the dangers of smoking. LDCTs yearly Plan The patient agreed to the use of a medical imaging director for this encounter. Scribed for JILL Parikh by jean-pierre Pantoja scribe, on 06/30/2024 at 11:15 EST. Orders: Orders Complete Blood Count Auto Diff Today Z00.00 - Encounter for general adult medical examination without abnormal findings Comprehensive [place]. Panel Fast Today Z00.00 - Encounter for general adult medical examination without abnormal findings UA CC w/rflx Micro + Cult Today Z00.00 - Encounter for general adult medical examination without abnormal findings AMB EKG-In Office Today R07.9 - Chest pain, unspecified CA echo transthoracic complete Today R07.9 - Chest pain, unspecified CA stress test Today R07.9 - Chest pain, unspecified NM cardiolite stress test Today R07.9 - Chest pain, unspecified TSH reflex Free T4 Today Z00.00 - Encounter for general adult medical examination without abnormal findings Lipid Panel Today Z00.00 - Encounter for general adult medical examination without abnormal findings Prostate Specific Antigen Scr Today Z12.5 - Encounter for screening for malignant neoplasm of prostate
== END 2024-06-30 11:51 | disposition home or self-care (01) ==
PROVIDERS: PCP Nurse Practitioner Family; Visit Provider Nurse Practitioner Family
DX: Z00.00 Encounter for general adult medical examination without abnormal findings (principal); Z12.5 Encounter for screening for malignant neoplasm of prostate; R07.9 Chest pain, unspecified; F17.200 Nicotine dependence, unspecified, uncomplicated

== ENCOUNTER → 2024-06-30 10:57 | Outpatient (BNVA) | payer OTHER, SELFPAY | PROVIDERS: PCP Nurse Practitioner Family; Visit Provider Nurse Practitioner Family | DX: Z00.01 Encounter for general adult medical examination with abnormal findings (principal); R07.9 Chest pain, unspecified; F17.200 Nicotine dependence, unspecified, uncomplicated; Z71.6 Tobacco abuse counseling | CPT/HCPCS: 96127; 99396 ==

== ENCOUNTER 2024-07-26 07:25 | Outpatient (REF) | payer OTHER, SELFPAY ==
[2024-07-26 10:07] LABS: MANUAL DIFF FLAG NO
[2024-07-26 10:20] LABS: Basophils Absolute Auto 0.1 X10*3/uL (0.0-0.2); Basophils Percent Auto 1.1 % (0-2); Eosinophils Absolute Auto 0.4 X10*3/uL (0.0-0.4); Eosinophils Percent Auto 2.8 % (0-4); Hematocrit 48.6 % (42.0-52.0); Hemoglobin 15.9 g/dl (14.0-18.0); Imm Gran Abs Auto 0.08 X10*3/uL (0.00-0.03); Imm Gran Pct Auto 0.6 % (0.0-0.4); Lymphocytes Absolute Auto 3.4 X10*3/uL (1.2-4.9); Lymphocytes Percent Auto 25.8 % (20-40); Mean Corpuscular HGB Conc 32.7 g/dl (31.0-36.0); Mean Corpuscular Hemoglobin 30.2 pg (27.0-33.0); Mean Corpuscular Volume 92.2 fL (80.0-98.0); Monocytes Absolute Auto 1.2 X10*3/uL (0.1-1.2); Monocytes Percent Auto 8.6 % (2-11); Neutrophils Absolute Auto 8.1 x10*3/uL (2.0-8.3); Neutrophils Percent Auto 61.1 % (45-73); Platelet Count 195 X10*3/uL (160-400); Red Blood Count 5.27 X10*6/uL (4.60-5.80); Red Cell Distribution Width 14.3 % (11.0-16.0); White Blood Count 13.3 X10*3/uL (4.8-10.8)
[2024-07-26 10:38] LABS: Appearance Urine Clear; Color Urine Yellow; Glucose Urine UA Negative (Negative); Leukocyte Esterase Urine Negative (Negative); Nitrite Urine Negative (Negative); PH 6.5 (5.0-9.0); Urine Blood Negative (Negative); Urine Ketones Negative (Negative); Urine Protein Negative (Neg-Trace)
[2024-07-26 10:42] LABS: Alanine Aminotransferase 35 U/L (0-40); Albumin Level 4.2 g/dL (3.5-5.0); Alkaline Phosphatase 77 U/L (39-117); Anion Gap 8 (12-20); Aspartate Amino Transferase 22 U/L (5-37); Bilirubin Total 0.3 mg/dL (0.0-1.0); Blood Urea Nitrogen 15 mg/dL (9-16); Calcium 9.6 mg/dL (8.4-10.2); Carbon Dioxide 27 mmol/L (22-29); Chloride 109 mmol/L (96-108); Cholesterol 181 mg/dL (<200); Estimated Glomerular Filt Rate > 60; Glucose Fasting 93 mg/dL (60-99); HDL Cholesterol 54 mg/dL (>40); LDL Cholesterol Calculated 106 mg/dL (<100); Potassium 3.9 mmol/L (3.3-5.1); Sodium 140 mmol/L (135-145); Total Protein 6.9 g/dL (6.5-8.0); Triglycerides 107 mg/dL (<150)
[2024-07-26 10:58] LABS: Prostate Specific Antigen Scr 2.71 ng/mL (<0.05-4.0)
[2024-07-26 11:04] LABS: TSH reflex Free T4 4.38 uIU/mL (0.32-4.0)
[2024-07-26 11:43] LABS: Free T4 (Free Thyroxine) 1.02 ng/dL (0.71-1.85)
== END 2024-07-26 07:26 | disposition home or self-care (01) ==
LOC: HO.HMGCLDS 07:25
PROVIDERS: PCP Nurse Practitioner Family; Visit Provider Nurse Practitioner Family
DX: Z00.00 Encounter for general adult medical examination without abnormal findings (principal); Z12.5 Encounter for screening for malignant neoplasm of prostate
CPT/HCPCS: 36415; 80053; 80061; 81003; 84153; 84439; 84443; 85025

== ENCOUNTER 2024-11-07 13:46 | Outpatient (REF) | payer OTHER, SELFPAY ==
[2024-11-07 17:29] LABS: Influenza A PCR NEGATIVE (Negative); Influenza B PCR NEGATIVE (Negative); Resp Syncy Virus RNA Qual PCR NEGATIVE (Negative); SARS COV2 PCR INHOUSE POSITIVE (Negative)
--- OUTSIDE RECORDS SUMMARY | 2024-11-07 17:35 | XMS_ITS | Clinical Summary ---
Author Organization [facility] Address [address] [place] [address] Care Team Providers Care Incident Response Analyst Name Role Phone Leah Forte DO Primary Care Provider [phone] Allergies No known active allergies Medications Medication [...] age to complete this topic Care Teams Incident Response Analyst Relationship Specialty Start Date End Date Leah Forte DO [address] [place] [address] [phone] PCP - General Family Medicine 01/20/20
== END 2024-11-07 13:47 | disposition home or self-care (01) ==
LOC: HO.LAB 13:46
PROVIDERS: PCP Nurse Practitioner Family; Visit Provider Nurse Practitioner Family
DX: J06.9 Acute upper respiratory infection, unspecified (principal); J02.9 Acute pharyngitis, unspecified
CPT/HCPCS: 0241U; 87880; 99212

== ENCOUNTER 2024-11-07 13:46 | Outpatient (AMB) | payer OTHER, SELFPAY ==
[2024-11-07 14:18] VITALS: BP 120/80; PULSE 91; TEMP 36.6; O2SAT 97
--- NOTE | 2024-11-07 14:18 | AM.OFFWIN_ITS ---
Intake Vital Signs 11/07/24 14:18 Weight 125 lb BP 120/80 Blood Pressure Location Lt brachial Position Sitting Pulse 91 Pulse Source Pulse Oximeter Temp 97.9 F Temp Source Oral Pulse Oximetry (%) 97 Oxygen Delivery Method Room Air Intake Visit Reasons: EP-cough, sore throat Intake Note: Patient here for cough and throat swelling and left ear pain that has been present for 2 days Patient Tobacco Use Status: Current everyday Tobacco user Allergies No Known Allergies [No Known Allergies*] Allergy (Verified 11/07/24 14:18) Do you need a note to return to daycare/school/sports/work: No HPI HPI Comments History of Present Illness Details 58 y/o male patient who presents to the walk in clinic with c/o Sore- throat, cough and left ear pain x 2 days. He is Everyday cigarette smoker. [facility] Medical History (Updated 11/07/24 @ 14:49 by Sloane Betancourt NP) Acute pharyngitis Acute respiratory disease Hyperlipidemia Anxiety COPD (chronic obstructive pulmonary disease) Leukocytosis Nicotine dependence, cigarettes, uncomplicated Dyslipidemia Surgical History History of esophagogastroduodenoscopy (EGD) History of colonoscopy History of total replacement of right shoulder joint Family History Father Diabetes Heavy drinker of alcohol Substance use disorder Mother Heart attack Heavy drinker of alcohol Substance use disorder Sister Substance use disorder Mental health disorder Social History Household Members: Significant Other Housing: Apartment Alcohol intake: never Patient Tobacco Use Status: Current everyday Tobacco user Tobacco use type: Cigarette Cigarette Packs Per Day: 0.5 Years Smoked: (onset 14yo, 1ppd x 42yrs, now 1/2ppd, 40pyh) e-Cigarette/Vaping Use: Never Used Second Hand Smoke Exposure: Yes service: Yes ([employer]) Current occupational status: disabled Cognitive needs: No Hearing needs: No Vision needs: Yes Review of Systems Const All systems reviewed & are unremarkable except as noted in HPI and below Physical Exam Vital Signs: Last Vital Signs Temp 97.9 F 11/07/24 14:18 Pulse 91 11/07/24 14:18 BP 120/80 11/07/24 14:18 Pulse Ox 97 11/07/24 14:18 Oxygen Delivery Method Room Air 11/07/24 14:18 Const Other: His clothes covered in Cigarette smoke General: cooperative, no acute distress and poor hygiene Orientation/consciousness: patient oriented x3 HEENT Head: Yes normocephalic Ears: external ears normal and TM abnormal with fluid behind the TM bilateral General nose exam: Nasal discharge present Face and sinus: Yes sinuses nontender Mouth: moist mucous membranes and Abnormal oral and palatal mucosa present e rythematous; not edematous Throat: Yes uvula midline Resp Effort & Inspection: normal respiratory effort and able to speak in complete sentences Auscultation: clear to auscultation bilaterally, no crackles, no rales, no rhonchi and no wheezes Cardio Heart sounds: S1 normal heart sound present and S2 normal heart sound present Neuro General: patient oriented x3 Assessment & Plan Assessment & Plan (1) Acute respiratory disease: Code(s): J06.9 - Acute upper respiratory infection, unspecified Plan: Rapid Strep Negative. OTC Cold/cough and Sore-throat remedies Acetaminophen for pain relief. Ordered SARs (2) Acute pharyngitis: Code(s): J02.9 - Acute pharyngitis, unspecified Qualifiers: Pharyngitis/tonsillitis etiology: unspecified etiology Qualified Code(s): J02.9 - Acute pharyngitis, unspecified Plan: Rapid Strep Negative. OTC Cold/cough and Sore-throat remedies Acetaminophen for pain relief. Ordered SARs. Orders: Orders SARS-CoV2/FLU/RSV Today J06.9 - Acute upper respiratory infection, unspecified Medications: New benzonatate 100 mg PO TID 60 caps 0RF cough J06.9 - Acute upper respiratory infection, unspecified phenol 1.4% (Chloraseptic Throat [place]) 4 sprays mucous membrane Q4H 20 mL 0RF sore throat J02.9 - Acute pharyngitis, unspecified, J06.9 - Acute upper respiratory infection, unspecified Coding Level of Care Code Est Pt Level 4 (42599) Diagnoses Acute respiratory disease J06.9 Acute pharyngitis, unspecified etiology J02.9 Pharyngitis/tonsillitis etiology: unspecified etiology Time Spent (min) 20
--- OUTSIDE RECORDS SUMMARY | 2024-11-07 16:16 | XMS_ITS | Clinical Summary ---
Author Organization [facility] Address [address] [place] [address] Care Team Providers Care Poolroom/Poolhall Manager Name Role Phone Leah Forte DO Primary Care Provider [phone] Allergies No known active allergies Medications Medication Sig Dispensed Refills Start Date End Date Status LORazepam (ATIVAN) 0.5 MG tablet Take 0.5 mg by mouth every 6 (six) hours as needed. 0 Active QUEtiapine (SEROquel) 100 MG tablet Take 100 mg by mouth every night at bedtime. 0 Active ARIPiprazole (ABILIFY) 5 MG tablet Take 5 mg by mouth daily. 0 Active Fluticasone Furoate-Vilanterol (BREO ELLIPTA) 200-25 MCG/INH AEPB Inhale 1 puff into the lungs. 0 Active Multiple Vitamins-Minerals (CEROVITE ADVANCED FORMULA PO) Take by mouth daily. 0 Active montelukast (SINGULAIR) 10 MG tablet Take 10 mg by mouth daily. 0 Active albuterol (PROVENTIL HFA) 108 (90 Base) MCG/ACT inhaler Inhale 2 puffs into the lungs every 4 (four) hours as needed for wheezing. 0 Active Active Problems No known active problems Social History Tobacco Use Types Packs/Day Years Used Date Smoking Tobacco: Every Day Cigarettes Last attempted to quit: 01/2019 Smokeless Tobacco: Never Alcohol Use Standard Drinks/Week Comments No 0 (1 standard drink = 0.6 oz pur e alcohol) Sex and Gender Information Value Date Recorded Sex Assigned at Not on file Gender Identity Not on file Sexual Orientation Not on file Last Filed Vital Signs Vital Sign Reading Time Taken Comments Blood Pressure 104/71 05/16/2020 12:11 PM EDT Pulse 77 05/16/2020 12:11 PM EDT Temperature 36.5 ??C (97.7 ??F) 05/16/2020 12:11 PM E DT Respiratory Rate - - Oxygen Saturation - - Inhaled Oxygen Concentration - - Weight 58.1 kg (128 lb) 05/16/2020 12:11 PM EDT Height 167.6 cm (5' 6 ) 05/16/2020 12:11 PM EDT Body Mass Index 20.66 05/16/2020 12:11 PM EDT Plan of Treatment Health Maintenance Due Date Last Done Comments Hepatitis C Screening 1965 COVID-19 Vaccine (#1) 06/21/1964 Pneumococcal Vaccine (1 of 2 - PCV) 12/20/1969 Depression Screening 1975 Preventative Health Evaluation 12/20/1981 Tobacco Cessation Counseling 12/20/1981 DTap / Tdap / Td (1 - Tdap) 12/20/1982 Colon Cancer Screening (Colonoscopy) 12/20/2008 Shingrix-Zoster Vaccine (1 of 2) 12/20/2013 Influenza Vaccine (#1) 2024 RSV Adult > 60+ Yrs or Pregn ant (1 - 1-dose 75+ series) 12/20/2038 Hepatitis B Vaccines Aged Out No long er eligible based on patient's age to complete this topic RSV Ped < 20 months Aged Out No longe r eligible based on patient's age to complete this topic Care Teams Poolroom/Poolhall Manager Relationship Specialty Start Date End Date Leah Forte DO [address] [place] [phone] PCP - General Family Medicine 01/20/20
== END 2024-11-07 15:42 | disposition home or self-care (01) ==
PROVIDERS: PCP Nurse Practitioner Family; Visit Provider Nurse Practitioner Family
DX: J06.9 Acute upper respiratory infection, unspecified (principal); J02.9 Acute pharyngitis, unspecified; Z13.9 Encounter for screening, unspecified

== ENCOUNTER 2024-12-30 08:03 | Outpatient (AMB) | payer OTHER, SELFPAY ==
--- OUTSIDE RECORDS SUMMARY | 2024-12-30 08:08 | XMS_ITS | Clinical Summary ---
Author Organization [facility] Address [address] [place] [address] Care Team Providers Care Elevated Guard Name Role Phone Leah Forte DO Primary Care Provider [phone] Allergies No known active allergies Medications Medication [...] age to complete this topic Care Teams Elevated Guard Relationship Specialty Start Date End Date Leah Forte DO [address] [place] [address] [phone] PCP - General Family Medicine 01/20/20
[2024-12-30 08:55] VITALS: BP 110/64; PULSE 88; O2SAT 97
--- NOTE | 2024-12-30 08:55 | AM.OFFWIN_ITS ---
Intake Vital Signs 12/30/24 08:55 Weight 118 lb 8 oz BP 110/64 Blood Pressure Location Rt brachial Position Sitting Pulse 88 Pulse Source Pulse Oximeter Pulse Oximetry (%) 97 Oxygen Delivery Method Room Air Intake Visit Reasons: EP LT foot/heel swelling, red, painful Intake Note: Patient here for left heel of foot that has been painful and swollen for a couple of days. Patient Tobacco Use Status: Current everyday Tobacco user Allergies No Known Allergies [No Known Allergies*] Allergy (Verified 12/30/24 08:56) Do you need a note to return to daycare/school/sports/work: No HPI EP LT foot/heel swelling, red, painful HPI Details This is a 59-year-old male patient who presents to the walk-in clinic today with report of swollen/tender/red left heel. This has been present for about 2 days. He denies any trauma or injury to area. States it is very tender and painful to walk on this. He has not taken anything to treat this. [facility] Medical History Acute pharyngitis Acute respiratory disease Hyperlipidemia Anxiety COPD (chronic obstructive pulmonary disease) Leukocytosis Nicotine dependence, cigarettes, uncomplicated Dyslipidemia Surgical History History of esophagogastroduodenoscopy (EGD) History of colonoscopy History of total replacement of right shoulder joint Family History Father Diabetes Heavy drinker of alcohol Substance use disorder Mother Heart attack Heavy drinker of alcohol Substance use disorder Sister Substance use disorder Mental health disorder Social History Household Members: Significant Other Housing: Apartment Alcohol intake: never Patient Tobacco Use Status: Current everyday Tobacco user Tobacco use type: Cigarette Cigarette Packs Per Day: 0.5 Years Smoked: (onset 14yo, 1ppd x 42yrs, now 1/2ppd, 40pyh) e-Cigarette/Vaping Use: Never Used Second Hand Smoke Exposure: Yes service: Yes ([employer]) Current occupational status: disabled Cognitive needs: No Hearing needs: No Vision needs: Yes Review of Systems Const All systems reviewed & are unremarkable except as noted in HPI and below Physical Exam Vital Signs: Last Vital Signs Pulse 88 12/30/24 08:55 BP 110/64 12/30/24 08:55 Pulse Ox 97 12/30/24 08:55 Oxygen Delivery Method Room Air 12/30/24 08:55 Const General: cooperative, healthy appearing, comfortable and no acute distress Nutritional Appearance: average body habitus Resp Effort & Inspection: normal respiratory effort Auscultation: clear to auscultation bilaterally Cardio Rate: regular rate Rhythm: regular rhythm Skin General skin exam: no rashes or lesions noted Extrem Other: medial aspect of left heel erythematous, tender to touch, mild swelling General: Yes capillary refill normal and Yes no clubbing, cyanosis or edema Psych Appearance: grossly normal Mental Status: mental status grossly normal Speech and movement: Normal speech and movement present Assessment & Plan Assessment & Plan (1) Gout of left foot: Code(s): M10.9 - Gout, unspecified Qualifiers: Gout etiology: unspecified cause Chronicity: acute Qualified Code(s): M10.9 - Gout, unspecified Plan: Presentation is consistent with gout. Will start him on a short course of prednisone to treat this. We reviewed indications, use, possible side effects of this medication. He does have a regularly scheduled appointment with his PCP Magdy Resendez next week, at which time he can follow up with this as needed. If symptoms worsen or new symptoms develop in the meantime, he can certainly return to the clinic or the emergency department for evaluation. All questions were answered and patient verbalizes understanding and agrees to plan. Medications: New prednisone 40 mg (2 x 20 mg) PO DAILY 5 days 10 tabs 0RF M10.9 - Gout, unspecified Coding Level of Care Code Est Pt Level 4 (44692) Diagnoses Acute gout of left foot, unspecified cause M10.9 Gout etiology: unspecified cause Chronicity: acute
== END 2024-12-30 09:39 | disposition home or self-care (01) ==
PROVIDERS: PCP Nurse Practitioner Family; Visit Provider Nurse Practitioner Family
DX: M10.9 Gout, unspecified (principal)

== ENCOUNTER → 2024-12-30 08:03 | Outpatient (BNVA) | payer OTHER, SELFPAY | PROVIDERS: PCP Nurse Practitioner Family | DX: M10.9 Gout, unspecified (principal) | CPT/HCPCS: 99212 ==

== ENCOUNTER 2025-01-02 11:14 | Outpatient (REF) | payer OTHER, SELFPAY ==
--- NOTE | ~2025-01-02 | XR_ITS ---
EXAMINATION: XR FOOT 3 OR MORE VIEWS LEFT HISTORY: M79.672 - Pain in left foot COMPARISON: There are no prior studies available for comparison. FINDINGS: Three views of the left foot are submitted. Osseous mineralization is normal. There is no fracture or dislocation. The joint spaces are preserved. The soft tissues are unremarkable. XR/XR foot LT min 3V IMPRESSION: Unremarkable examination of the left foot Electronically signed by: Edwin Mcintosh MD 01/04/2025 01:36 PM EDT
--- OUTSIDE RECORDS SUMMARY | 2025-01-02 15:13 | XMS_ITS | Clinical Summary ---
Author Organization [facility] Address [address] [place] [address] Care Team Providers Care Investment Advisor Name Role Phone Leah Forte DO Primary Care Provider [phone] Allergies No known active allergies Medications Medication [...] age to complete this topic Care Teams Investment Advisor Relationship Specialty Start Date End Date Leah Forte DO [address] [place] [address] [phone] PCP - General Family Medicine 01/20/20
== END 2025-01-02 11:15 | disposition home or self-care (01) ==
LOC: HO.HMGCX 11:14
PROVIDERS: PCP Nurse Practitioner Family; Visit Provider Nurse Practitioner Family
DX: Z00.01 Encounter for general adult medical examination with abnormal findings (principal); M79.672 Pain in left foot; R68.82 Decreased libido
CPT/HCPCS: 73630; 96127; 99396

== ENCOUNTER 2025-01-02 11:14 | Outpatient (AMB) | payer OTHER, SELFPAY ==
[2025-01-02 11:23] VITALS: BP 110/66; PULSE 86; O2SAT 97; BMI 19.2
--- NOTE | 2025-01-02 11:23 | A.OFFPC_ITS ---
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 He reports that the heel pain began following an extended walk, accompanied by noticeable swelling in the medial region of the heel. The patient describes tenderness upon palpation and during dorsiflexion, which raises the suspicion of plantar fasciitis and the possible presence of a heel spur. Ice application has provided partial symptom relief. His medical background includes chronic obstructive pulmonary disease, well-controlled with the use of inhalers. The patient reports regular smoking habits and participates in a CT scan program aimed at monitoring lung health. Current colon cancer screening is up to date. He has explicitly denied symptoms related to chest discomfort, respiratory difficulties, gastrointestinal issues, or any urinary tract concerns. Additionally, he reports no thoughts of self-harm or harm to others. Health Maintenance - Up-to-date colon cancer screening - Participation in low-dose CT scan prog krista for lung screening - Declined digital rectal exam, agreed t o proceed with PSA testing - Discussion on smoking cessation (impli ed by tobacco use disorder) -declined KAUSHIK today, PSA ordered Social History - Tobacco use: Patient smokes regularly Review of Systems - Respiratory: Denies shortness of breat h or increased respiratory difficulty - Cardiovascular: Denies chest pain - Gastrointestinal: Denies blood in stoo l, constipation, or diarrhea - Urinary: Denies urinary symptoms - Psychiatric: Denies suicidal or homici id ideation - Musculoskeletal: Reports left heel andre n with previous swelling, tenderness on palpation Physical Exam General: Cooperative, healthy appearing, comfortable, no acute distress and well developed Orientation: Patient oriented x3 Limitations: No limitations Head: Normal to inspection Ears: Hearing grossly normal bilaterally Nose: Normal external nose present Face and sinus: Normal facial exam Eyes: Appearance normal, both eyes and all related structures Neck: Normal visual inspection and Yes full ROM Respiratory: Diminished breath sounds bilaterally, able to speak in complete sentences Cardiovascular: Regular rate and rhythm. S1 and S2 GI: Normal to inspection. Soft to palpation and nontender Skin: No rashes or lesions noted Neuro: Patient oriented x3 Extremities: Tenderness noted with dorsiflexion or palpation over the left heel region, more medial aspect. Swelling reported, which has gone down. Question of plantar fasciitis or heel spur. Results Plan The patient presented with left heel pain suspected to be plantar fasciitis and possibly a heel spur, for which radiographic imaging and uric acid testing are planned to confirm the diagnosis and rule out gout. COPD management continues with the use of inhalers, providing symptom control. Emphasis is placed on smoking cessation, and the patient has agreed to continue with the low-dose CT scan program for lung health monitoring. Regarding prostate health, the patient opts for PSA testing after declining a digital rectal exam. Colon cancer screening is current, requiring no further action at this time. Discussion Notes During our discussion, I explained the likelihood of plantar fasciitis or a heel spur, and the rationale behind obtaining further imaging and lab work. We discussed the patient's COPD management with inhalers and reinforced the value of smoking cessation given the patient's regular smoking habits. The patient is part of a low-dose CT lung screening program, which continues. Upon discussion, the patient preferred PSA testing over a digital rectal exam for prostate health monitoring. I reiterated the necessity of keeping up with health screenings and maintaining proactive management of chronic conditions for optimized health outcomes. Patient Instructions - Apply ice to left heel to help reduce swelling and pain - Monitor for any changes or increase in heel pain and report promptly - Continue with prescribed inhalers for COPD control - Participate in scheduled low-dose CT s cans for lung health - Proceed with PSA test as discussed for prostate health - Consider smoking cessation resources f or assistance quitting smoking PFSH Medical History Acute pharyngitis Acute respiratory disease Hyperlipidemia Anxiety COPD (chronic obstructive pulmonary disease) Leukocytosis Nicotine dependence, cigarettes, uncomplicated Dyslipidemia Surgical History History of esophagogastroduodenoscopy (EGD) History of colonoscopy History of total replacement of right shoulder joint Family History Father Diabetes Heavy drinker of alcohol Substance use disorder Mother Heart attack Heavy drinker of alcohol Substance use disorder Sister Substance use disorder Mental health disorder Social History Household Members: Significant Other Housing: Apartment Alcohol intake: never Patient Tobacco Use Status: Current everyday Tobacco user Tobacco use type: Cigarette Cigarette Packs Per Day: 0.5 Years Smoked: (onset 14yo, 1ppd x 42yrs, now 1/2ppd, 40pyh) e-Cigarette/Vaping Use: Never Used Second Hand Smoke Exposure: Yes service: Yes ([employer]) Current occupational status: disabled Cognitive needs: No Hearing needs: No Vision needs: Yes Questionnaire PHQ-9 Over the last 2 weeks, how often have you been bothered by any of the following problems? 1. Little interest or pleasure in doing things: not at all 2. Feeling down, depressed, or hopeless: several days 3. Trouble falling or staying asleep, or sleeping too much: not at all 4. Feeling tired or having little energy: several days 5. Poor appetite or overeating: not at all 6. Feeling bad about yourself - or that you are a failure or have let yourself or your family down: not at all 7. Trouble concentrating on things, such as reading the newspaper or watching television: not at all 8. Moving or speaking so slowly that other people could have noticed. Or the opposite - being so fidgety or restless that you have been moving around a lot more than usual: not at all 9. Thoughts that you would be better off or of hurting yourself in some way: not at all Total score: 2 Depression Screening Interpretation: Negative Depression Screening Done: Yes 11780 - PHQ-9 Billing: Yes Source: Developed by Drs. Edwin Pinto, Kinjal Allen, Franco Archibald and colleagues, with an educational sonia from [employer]. Thrive Questionnaire Date Thrive assessed: 01/02/25 I am a: Patient What is your living situation today?: I have a steady place to live Within the past 12 months, did the food you bought not last and you didn't have the money to get more?: I choose not to answer this question Within the past 12 months, did you worry whether your food would run out before you got money to buy more?: I choose not to answer this question Do you have trouble paying for medicines?: Yes Do you have trouble getting transportation to medical appointments?: I choose not to answer this question Do you have trouble paying your heating and electricity bill?: No Do you have trouble taking care of your child, family member or friend?: I choose not to answer this question Do you have trouble with day-to-day activities such as bathing, preparing meals, shopping, managing finances, etc.?: I choose not to answer this question Are you currently unemployed and looking for a job?: No Are you interested in more education?: I choose not to answer this question Please select the resources that you would like help with: Care for elder or disabled THRIVE Score: 0 AUDIT C Alcohol Use Questionnaire (AUDIT-C) 1. How often do you have a drink containing alcohol?: Monthly or less 2. How many drinks containing alcohol do you have on a typical day when you are drinking?: 1 or 2 3. How often do you have six or more drinks on one occasion?: Never Total Score: 1 Score Reviewed/Action Taken: Yes EZEKIEL-7 AMB Questionnaire EZEKIEL-7 Date EZEKIEL - 7 assessed: 01/02/25 Feeling nervous, anxious, or on edge: 2 = More than half the days Not being able to stop or control worryin = More than half the days Worrying too much about different things: 2 = More than half the days Trouble relaxin = More than half the days Being so restless that it is hard to sit still: 2 = More than half the days Becoming easily annoyed or irritable: 2 = More than half the days Feeling afraid as if something awful might happen: 0 = Not at all Total EZEKIEL-7 score (0-4 normal; 5-9 mild; 10-14 moderate; 15-21 severe): 12 Source: Developed by Drs. Edwin LKinjal Zamorano Kurt Kroenke and colleagues, with an educational sonia from [employer]. EZEKIEL-7 Assessment Billing EZEKIEL-7 Assessment Tool: EZEKIEL-7 Assessment 58600 (denies any si or hi) Physical exam (Primary Care) Vital Signs: Last Vital Signs Pulse 86 01/02/25 11:23 BP 110/66 01/02/25 11:23 Pulse Ox 97 01/02/25 11:23 Oxygen Delivery Method Room Air 01/02/25 11:23 BMI result Body Mass Index 19.2 Tobacco/Smoking Status: Tobacco use Status Tobacco use date assessed 01/02/25 01/02/25 11:24 Patient Tobacco Use Status Current everyday Tobacco 01/02/25 11:24 Tobacco use type Cigarette 01/02/25 11:24 e-Cigarette/Vaping Use Never Used 01/02/25 11:24 PHQ-9: PHQ-9 Score PHQ-9: Total score 2 01/02/25 11:35 Depression Screening Interpretation: Negative Thrive Assessment: Date of Thrive Assessment Date Thrive assessed 01/02/25 01/02/25 11:24 Coding Level of Care Code Est Pt Prev Care 40-64y(76804) Diagnoses Encounter for routine adult physical exam with abnormal findings Z00. Screening PSA (prostate specific antigen) Z12.5 Decreased libido R68.82 Pain of left heel M79.672 Additional Codes PHQ-9 - 12109 - PHQ-9 Billing: Yes ([id number]) EZEKIEL-7 Assessment Billing - EZEKIEL-7 Assessment Tool: EZEKIEL-7 Assessment 38603 ([id number]) Assessment & Plan Assessment & Plan (1) Encounter for routine adult physical exam with abnormal findings: Code(s): Z00.01 - Encounter for general adult medical examination with abnormal findings Category: Medical (2) Screening PSA (prostate specific antigen): Code(s): Z12.5 - Encounter for screening for malignant neoplasm of prostate Category: Medical (3) Decreased libido: Code(s): R68.82 - Decreased libido Category: Medical (4) Pain of left heel: Code(s): M79.672 - Pain in left foot Category: Medical Plan . Orders: Orders Complete Blood Count Auto Diff Today Z00.01 - Encounter for general adult medical examination with abnormal findings Lipid Panel Today Z00.01 - Encounter for general adult medical examination with abnormal findings XR foot LT min 3V Today M79.672 - Pain in left foot Comprehensive Branch. Panel Fast Today Z00.01 - Encounter for general adult medical examination with abnormal findings TSH reflex Free T4 Today Z00.01 - Encounter for general adult medical examination with abnormal findings UA CC w/rflx Micro + Cult Today Z00.01 - Encounter for general adult medical examination with abnormal findings Prostate Specific Antigen Scr Today Z12.5 - Encounter for screening for malignant neoplasm of prostate Testosterone, Free/Total Today R68.82 - Decreased libido Uric Acid Today M79.672 - Pain in left foot Medications: Refilled ipratropium-albuterol 0.5 mg-3 mg(2.5 mg base)/3 mL 3 mL inhalation Q6-8H PRN 90 mL 0RF wheezing
--- OUTSIDE RECORDS SUMMARY | 2025-01-02 13:32 | XMS_ITS | Clinical Summary ---
Author Organization [facility] Address [address] [place] [address] Care Team Providers Care Cnmt Name Role Phone Leah Forte DO Primary Care Provider [phone] Allergies No known active allergies Medications Medication [...] age to complete this topic Care Teams Cnmt Relationship Specialty Start Date End Date Leah Forte DO [address] [place] [phone] PCP - General Family Medicine 01/20/20
== END 2025-01-02 12:30 | disposition home or self-care (01) ==
LOC: HO.HMCC 11:15
PROVIDERS: PCP Nurse Practitioner Family; Visit Provider Nurse Practitioner Family
DX: Z00.01 Encounter for general adult medical examination with abnormal findings (principal); Z12.5 Encounter for screening for malignant neoplasm of prostate; R68.82 Decreased libido; M79.672 Pain in left foot

== ENCOUNTER → 2025-01-02 13:04 | Outpatient (BNV) | payer OTHER, SELFPAY | PROVIDERS: PCP Nurse Practitioner Family; Visit Provider Radiology Diagnostic Radiology | DX: M79.672 Pain in left foot (principal) | CPT/HCPCS: 73630 ==

== ENCOUNTER 2025-01-03 06:05 | Outpatient (REF) | payer OTHER, SELFPAY ==
--- NOTE | ~2025-01-03 | CT_ITS ---
CLINICAL HISTORY: F17.210 - Nicotine dependence, cigarettes, uncomplicated CT lung cancer screening (LDCT) Comparison: CR/CO/SR - XR CHEST 1V - 04/28/24 20:39 EDT Technique: Axial CT images of the chest using low-dose technique. Referring provider counseled the patient on shared decision-making for LDCT screening. Additional counseling was provided on smoking cessation. Findings: Lung: Mild apical predominant emphysema. Moderate airspace opacity within the right lung base posteriorly. Mild left lung base airspace opacity posteriorly. Calcified granuloma within the right upper lobe posteriorly. Perivascular nodule within the posterolateral lingula measuring 4 mm ( image 88). Coronary artery calcifications: none Limited upper abdomen: Unremarkable Other: None Impression: 1. [id number]-left bibasilar pneumonia. 2. Small lingular nodule. 3. LungRADS 0: Incomplete screening due to bibasilar pneumonia. ##L0## Category 1: Normal; continue annual screening Category 2: Benign appearance or behavior, continue annual screening Category 3: Probably benign, [address] recommended Category 4A: Suspicious, [address] recommended; may consider PET/CT Category 4B: Suspicious, Additional diagnostics and/or tissue sampling recommended Category 4X: Suspicious, Additional diagnostics and/or tissue sampling recommended Category 0: Recalls (incomplete screen due to Incomplete coverage, Noise, Respiratory motion, Expiration, Obscured by acute abnormality) This document has been electronically signed by: Genny Angeles MD on 01/04/2025 15:56:02
--- OUTSIDE RECORDS SUMMARY | 2025-01-03 06:07 | XMS_ITS | Clinical Summary ---
Author Organization [facility] Address [address] [place] [address] Care Team Providers Care Beamer Helper Name Role Phone Leah Forte DO Primary Care Provider [phone] Allergies No known active allergies Medications Medication [...] age to complete this topic Care Teams Beamer Helper Relationship Specialty Start Date End Date Leah Forte DO [address] [place] [phone] PCP - General Family Medicine 01/20/20
[2025-01-03 10:14] LABS: Basophils Absolute Auto 0.1 X10*3/uL (0.0-0.2); Basophils Percent Auto 0.2 % (0-2); Eosinophils Percent Auto 0.1 % (0-4); Hematocrit 48.1 % (42.0-52.0); Hemoglobin 15.5 g/dl (14.0-18.0); Imm Gran Abs Auto 0.23 X10*3/uL (0.00-0.03); Imm Gran Pct Auto 0.9 % (0.0-0.4); Lymphocytes Percent Auto 8.1 % (20-40); MANUAL DIFF FLAG SCAN; Mean Corpuscular HGB Conc 32.2 g/dl (31.0-36.0); Mean Corpuscular Hemoglobin 30.2 pg (27.0-33.0); Mean Corpuscular Volume 93.8 fL (80.0-98.0); Mean Platelet Volume 13.6 fL (9.4-12.4); Monocytes Absolute Auto 1.4 X10*3/uL (0.1-1.2); Monocytes Percent Auto 5.8 % (2-11); Neutrophils Absolute Auto 20.8 x10*3/uL (2.0-8.3); Neutrophils Percent Auto 84.9 % (45-73); PLT CLUMP 1; Red Blood Count 5.13 X10*6/uL (4.60-5.80); Red Cell Distribution Width 14.6 % (11.0-16.0); SCAN SMEAR FLAG 1
[2025-01-03 10:23] LABS: White Blood Count 24.5 X10*3/uL (4.8-10.8)
[2025-01-03 10:24] LABS: Platelet Count 192 X10*3/uL (160-400)
[2025-01-03 10:38] LABS: Alanine Aminotransferase 31 U/L (0-40); Albumin Level 4.2 g/dL (3.5-5.0); Alkaline Phosphatase 73 U/L (39-117); Anion Gap 11 (12-20); Aspartate Amino Transferase 18 U/L (5-37); Blood Urea Nitrogen 14 mg/dL (9-16); Calcium 9.4 mg/dL (8.4-10.2); Carbon Dioxide 27 mmol/L (22-29); Chloride 106 mmol/L (96-108); Cholesterol 157 mg/dL (<200); Estimated Glomerular Filt Rate > 60; Glucose Fasting 114 mg/dL (60-99); HDL Cholesterol 60 mg/dL (>40); LDL Cholesterol Calculated 78 mg/dL (<100); Potassium 4.5 mmol/L (3.3-5.1); Sodium 139 mmol/L (135-145); Total Protein 7.1 g/dL (6.5-8.0); Triglycerides 98 mg/dL (<150); Uric Acid 3.5 mg/dL (3.4-7.0)
[2025-01-03 10:53] LABS: SLIDE REVIEW VERIFIED
[2025-01-03 10:54] LABS: Prostate Specific Antigen Scr 1.95 ng/mL (<0.05-4.0)
[2025-01-03 10:57] LABS: TSH reflex Free T4 1.34 uIU/mL (0.32-4.0)
[2025-01-03 11:08] LABS: Appearance Urine Clear; Color Urine Dark Yellow; Glucose Urine UA Negative (Negative); Leukocyte Esterase Urine Negative (Negative); Nitrite Urine Negative (Negative); Urine Blood Negative (Negative); Urine Ketones Negative (Negative); Urine Protein Negative (Neg-Trace)
== END 2025-01-03 06:06 | disposition home or self-care (01) ==
LOC: HO.CT 06:05
PROVIDERS: PCP Nurse Practitioner Family; Visit Provider Physician Assistant Medical
DX: Z12.2 Encounter for screening for malignant neoplasm of respiratory organs (principal); F17.210 Nicotine dependence, cigarettes, uncomplicated; Z12.5 Encounter for screening for malignant neoplasm of prostate; Z13.6 Encounter for screening for cardiovascular disorders; M79.672 Pain in left foot; R68.82 Decreased libido; Z00.01 Encounter for general adult medical examination with abnormal findings
CPT/HCPCS: 36415; 71271; 80053; 80061; 81003; 84153; 84402; 84403; 84443; 84550; 85025

== ENCOUNTER → 2025-01-03 10:46 | Outpatient (BNV) | payer OTHER, SELFPAY | PROVIDERS: PCP Nurse Practitioner Family; Visit Provider Radiology Diagnostic Radiology | DX: F17.210 Nicotine dependence, cigarettes, uncomplicated (principal) | CPT/HCPCS: 71271 ==

== ENCOUNTER 2025-01-13 06:37 | Outpatient (REF) | payer OTHER, SELFPAY ==
--- OUTSIDE RECORDS SUMMARY | 2025-01-13 06:39 | XMS_ITS | Clinical Summary ---
Author Organization [facility] Address [address] [place] [address] Care Team Providers Care Physicist [employer] Name Role Phone Leah Forte DO Primary Care Provider [phone] Allergies No known active allergies Medications Medication [...] age to complete this topic Care Teams Physicist [employer] Relationship Specialty Start Date End Date Leah Forte DO [address] [place] [phone] PCP - General Family Medicine 01/20/20
[2025-01-13 09:59] LABS: MANUAL DIFF FLAG NO
[2025-01-13 10:05] LABS: Basophils Absolute Auto 0.1 X10*3/uL (0.0-0.2); Eosinophils Absolute Auto 0.6 X10*3/uL (0.0-0.4); Eosinophils Percent Auto 4.8 % (0-4); Hemoglobin 15.4 g/dl (14.0-18.0); Imm Gran Abs Auto 0.09 X10*3/uL (0.00-0.03); Imm Gran Pct Auto 0.7 % (0.0-0.4); Lymphocytes Absolute Auto 3.4 X10*3/uL (1.2-4.9); Lymphocytes Percent Auto 26.3 % (20-40); Mean Corpuscular HGB Conc 32.8 g/dl (31.0-36.0); Mean Corpuscular Hemoglobin 30.3 pg (27.0-33.0); Mean Corpuscular Volume 92.5 fL (80.0-98.0); Mean Platelet Volume 12.8 fL (9.4-12.4); Monocytes Absolute Auto 1.1 X10*3/uL (0.1-1.2); Monocytes Percent Auto 8.2 % (2-11); Neutrophils Absolute Auto 7.6 x10*3/uL (2.0-8.3); Platelet Count 220 X10*3/uL (160-400); Red Blood Count 5.08 X10*6/uL (4.60-5.80); Red Cell Distribution Width 14.5 % (11.0-16.0); White Blood Count 12.8 X10*3/uL (4.8-10.8)
[2025-01-13 10:35] LABS: TSH reflex Free T4 4.33 uIU/mL (0.32-4.0)
[2025-01-13 11:13] LABS: Free T4 (Free Thyroxine) 1.03 ng/dL (0.71-1.85)
[2025-01-16 18:28] LABS: Thyroid Peroxidase Antibodies 1 IU/mL (<9)
== END 2025-01-13 06:38 | disposition home or self-care (01) ==
LOC: HO.HMGCLDS 06:37
PROVIDERS: PCP Nurse Practitioner Family; Visit Provider Nurse Practitioner Family
DX: D72.829 Elevated white blood cell count, unspecified (principal); R79.89 Other specified abnormal findings of blood chemistry
CPT/HCPCS: 36415; 84439; 84443; 85025; 86376

== ENCOUNTER 2025-03-06 10:24 | Outpatient (AMB) | payer OTHER, SELFPAY ==
--- NOTE | 2025-03-06 10:26 | A.OFFVIS_ITS ---
Vital Signs 03/06/25 10:27 Height 5 ft 6 in Weight 121 lb 4.068 oz BMI 19.6 BP 128/70 Blood Pressure Location Rt brachial Position Sitting Pulse 86 Pulse Source Pulse Oximeter Pulse Oximetry (%) 97 Oxygen Delivery Method Room Air Intake Visit Reasons: Pneumonia Allergies No Known Allergies (No Known Allergies*) Allergy (Verified 03/06/25 10:30) HPI HPI Pneumonia: Details: oJse is a pleasant 59-year-old male, current 40 pack-year smoker, with underlying moderate COPD. He was referred by PCP for pulmonary evaluation after recent pneumonia. He is a part of the lung screening program at [facility] which came back as a RADS0 on 01/04 due to findings of pneumonia and was treated on January 07 with doxycycline and Augmentin by PCP. At the time of CT, he reported ongoing left sided chest irritation, productive cough and fevers, which have since resolved. He denies h/o recurrent respiratory infections. although reportedly had influenza and COVID in addition to pneumonia over the last 6 months. He has been suboptimally controlled on Wixela 250-50mcg one inhalation QD , DuoNeb and Singulair, unaware to use Wixela BID. PFT 2022 revealed moderate COPD. He continues to report dyspnea on exertion with associated chest tightness, denies cough/wheezing. He continues to smoke 1/2 ppd and not interested in quitting at this time. He denies prior history of asthma. 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 He denies any pertinent family history however does report a family history of heart disease, with his mother having had multiple heart attacks and a triple bypass surgery. He has not seen a editorial assistant but has had an EKG and was advised to follow up on a stress test and heart ultrasound that were ordered but not completed. [facility] Medical History (Updated 03/06/25 @ 10:32 by Lo Hyman NP) Acute pharyngitis Acute respiratory disease Hyperlipidemia Anxiety COPD (chronic obstructive pulmonary disease) Leukocytosis Nicotine dependence, cigarettes, uncomplicated Dyslipidemia Surgical History (Reviewed 01/02/25 @ 12:24 by Magdy Resendez, [facility]) History of esophagogastroduodenoscopy (EGD) History of colonoscopy History of total replacement of right shoulder joint Family History Father Diabetes Heavy drinker of alcohol Substance use disorder Mother Heart attack Heavy drinker of alcohol Substance use disorder Sister Substance use disorder Mental health disorder Social History (Reviewed 03/06/25 @ 10:30 by Sapphire Clemente [facility]) Household Members: Significant Other Housing: Apartment Alcohol intake: never Patient Tobacco Use Status: Current everyday Tobacco user Tobacco use type: Cigarette Cigarette Packs Per Day: 0.5 Years Smoked: (onset 14yo, 1ppd x 42yrs, now 1/2ppd, 40pyh) e-Cigarette/Vaping Use: Never Used Second Hand Smoke Exposure: Yes service: Yes ([employer]) Current occupational status: disabled Cognitive needs: No Hearing needs: No Vision needs: Yes Review of Systems Const Denies chills, Denies excessive sweating, Denies fever(s), Denies headache(s) and Denies night sweats Eyes Denies dry eyes, Denies irritation and Denies itchy eyes ENT Reports Normal hearing present, Denies headache(s), Denies nasal congestion, Denies nasal discharge, Denies post nasal drip and Denies sore throat Card Denies chest pain, Denies chest pain at rest, Denies chest pain with activity, Denies claudication, Denies dyspnea, Denies orthopnea and Denies paroxysmal nocturnal dyspnea Resp Denies chest congestion, Denies cough, Denies excessive phlegm production, Denies pain on inspiration, Denies pain with cough, Denies dyspnea, Denies stridor and Denies wheezing Musc Denies myalgias Neuro Reports Normal hearing present and Denies headache(s) Endo Denies excessive sweating Rafy/Lymph Denies lymphadenopathy Aller/Immun Denies itchy eyes, Denies seasonal rhinorrhea and Denies wheezing Physical Exam Vital Signs: Last Vital Signs Pulse 86 03/06/25 10:27 BP 128/70 03/06/25 10:27 Pulse Ox 97 03/06/25 10:27 Oxygen Delivery Method Room Air 03/06/25 10:27 BMI result Body Mass Index 19.6 Const General: cooperative, healthy appearing, comfortable, no acute distress, well developed and alert Nutritional Appearance: thin Orientation/consciousness: patient oriented x3 Limitations: no limitations HEENT Head: Yes normal to inspection, Yes normocephalic and Yes atraumatic Ears: hearing grossly normal bilaterally and external ears normal Eyes General: appearance normal, both eyes and all related structures Eyelids: Yes eyelids normal Sclerae: sclerae normal EOM: EOMs intact bilaterally Neck Neck: Yes normal visual inspection and Yes no lymphadenopathy Lymphatic: no lymphadenopathy noted Chest Chest palpation & inspection: normal inspection of the chest Resp Effort & Inspection: normal respiratory effort, able to speak in complete sent ences, no audible wheezes, no cough, no stridor, not tachypneic, no tripod positioning, no use of accessory muscles and prolonged expiratory phase Auscultation: diminished lung sounds Cardio Jugular venous distension: no JVD Rate: regular rate Rhythm: regular rhythm Skin Other: warm, dry General skin exam: no rashes or lesions noted Neuro General: patient oriented x3 Cranial nerves: Yes Normal hearing present Cognition (Neuro): normal cognition Gait exam (Neuro): Normal gait present Extrem General: Yes normal to inspection, Yes capillary refill normal, Yes no clubbing, cyanosis or edema and Yes no pedal edema Psych Appearance: grossly normal and well kempt Speech and movement: Normal speech and movement present and Clear speech present Affect: normal affect Attitude: cooperative Thought process: Normal thought process present Thought content: Normal thought content present Insight: Good insight present (Psych) Judgement: Good judgement present (Psych) Results Reviewed Results Reviewed: [place] [id number] CT Scan Report Signed Patient: Jose Tobar MR#: [id number] : 1965 Acct:[id number] Age/Sex: 59 / M ADM Date: 01/03/25 Loc: HO.CT Attending Dr: Jennifer Romo PA-C Ordering Physician: Jennifer Romo PA-C Date of Service: 01/03/25 Procedure(s): CT lung screening Accession Number(s): [id number] cc: Magdy Resendez; Jennifer Romo PA-C~ Report Number: [id number]: Total DLP = 59.00 mGy-cm CLINICAL HISTORY: F17.210 - Nicotine dependence, cigarettes, uncomplicated CT lung cancer screening (LDCT) Comparison: CR/AZ/SR - XR CHEST 1V - 04/28/24 20:39 EDT Technique: Axial CT images of the chest using low-dose technique. Referring provider counseled the patient on shared decision-making for LDCT screening. Additional counseling was provided on smoking cessation. Findings: Lung: Mild apical predominant emphysema. Moderate airspace opacity within the right lung base posteriorly. Mild left lung base airspace opacity posteriorly. Calcified granuloma within the right upper lobe posteriorly. Perivascular nodule within the posterolateral lingula measuring 4 mm ( image 88). Coronary artery calcifications: none Limited upper abdomen: Unremarkable Other: None Impression: 1. Qevyk-uxrmake-wddn-left bibasilar pneumonia. 2. Small lingular nodule. 3. LungRADS 0: Incomplete screening due to bibasilar pneumonia. ##L0## Assessment & Plan Assessment & Plan (1) COPD (chronic obstructive pulmonary disease): Code(s): J44.9 - Chronic obstructive pulmonary disease, unspecified Category: Medical (2) Nicotine dependence, cigarettes, uncomplicated: Comment: (current smoker, onset 14, 1ppd x 42yrs, now 1/2ppd, 40pyh) Code(s): F17.210 - Nicotine dependence, cigarettes, uncomplicated Category: Medical (3) History of recent pneumonia: Code(s): Z87.01 - Personal history of pneumonia (recurrent) Category: Medical Plan Jose presents for pulmonary evaluation after recently being treated for pneumonia. He reports symptoms have nearly resolved, continues with dyspnea on exertion and chest tightness. Encouraged patient to increase Wixela to BID to manage COPD symptoms effectively. If ineffective, will switch to Trelegy. We reviewed the need for a follow-up CT chest to confirm the resolution of pneumonia and emphasized the importance of monitoring symptoms closely. Advised the patient on the benefits of vaccinations, particularly for flu and pneumonia. We also discussed smoking cessation and the potential use of nicotine repla cement therapy when the patient is ready to quit. Recommended following up with prior ordered cardiac testing with PCP including stress test and echo. All questions were answered and patient is in agreement of plan. Will follow-up in 6-8 weeks or sooner if needed. Orders: Orders CT chest wo IV con Today Z87.01 - Personal history of pneumonia (recurrent) Coding Level of Care Code New Pt Level 4 (88920) Diagnoses COPD (chronic obstructive pulmonary disease) J44.9 Nicotine dependence, cigarettes, uncomplicated F17.210 History of recent pneumonia Z87.01
[2025-03-06 10:27] VITALS: BP 128/70; PULSE 86; O2SAT 97; BMI 19.6
--- OUTSIDE RECORDS SUMMARY | 2025-03-06 11:04 | XMS_ITS | Clinical Summary ---
Author Organization [facility] Address [address] [place] [address] Care Team Providers Care It Risk And Assurance Senior Manager Name Role Phone Leah Forte DO Primary Care Provider [phone] Allergies No known active allergies Medications Medication [...] 77 05/16/2020 12:11 PM EDT Temperature 36.5 C (97.7 F) 05/16/2020 12:11 PM EDT Respiratory Rate - - Oxygen Saturation - [...] Vaccine (1 of 2) 12/20/2013 Influenza Vaccine (Season Ended) 2025 RSV Adult > 60+ Yrs or Pregn ant (1 - 1-dose 75+ series) 12/20/2038 Hepatitis B Vaccines Aged Out No long er eligible based on patient's age to complete this topic RSV Ped < 20 months Aged Out No longe r eligible based on patient's age to complete this topic Care Teams It Risk And Assurance Senior Manager Relationship Specialty Start Date End Date Leah Forte DO [address] [place] [address] [phone] PCP - General Family Medicine 01/20/20
== END 2025-03-06 10:55 | disposition home or self-care (01) ==
LOC: HO.HPS 10:24
PROVIDERS: PCP Nurse Practitioner Family; Referring Provider Physician Assistant Medical; Visit Provider Nurse Practitioner Family
DX: J44.9 Chronic obstructive pulmonary disease, unspecified (principal); F17.210 Nicotine dependence, cigarettes, uncomplicated; Z87.01 Personal history of pneumonia (recurrent)
CPT/HCPCS: 99204

== ENCOUNTER → 2025-03-06 10:24 | Outpatient (BNVA) | payer OTHER, SELFPAY | PROVIDERS: PCP Nurse Practitioner Family; Referring Provider Physician Assistant Medical; Visit Provider Nurse Practitioner Family | DX: F17.210 Nicotine dependence, cigarettes, uncomplicated (principal); J44.9 Chronic obstructive pulmonary disease, unspecified; Z87.01 Personal history of pneumonia (recurrent); R06.09 Other forms of dyspnea | CPT/HCPCS: 99202 ==

== ENCOUNTER 2025-05-01 10:43 | Outpatient (AMB) | payer OTHER, SELFPAY ==
[2025-05-01 10:47] VITALS: BP 110/72; PULSE 85; O2SAT 98; BMI 19.2
--- NOTE | 2025-05-01 10:47 | A.OFFVIS_ITS ---
Vital Signs 05/01/25 10:47 Height 5 ft 6 in Weight 119 lb 0.794 oz BMI 19.2 BP 110/72 Blood Pressure Location Rt brachial Position Sitting Pulse 85 Pulse Source Pulse Oximeter Pulse Oximetry (%) 98 Oxygen Delivery Method Room Air Intake Visit Reasons: Pneumonia Allergies No Known Allergies (No Known Allergies*) Allergy (Verified 05/01/25 10:50) HPI HPI Pneumonia: Details: Jose is a pleasant 59-year-old male, current 40 pack-year smoker, with underlying moderate COPD. He was referred by PCP for pulmonary evaluation after recent pneumonia. He is a part of the lung screening program at [facility] which came back as a RADS0 on 01/04 due to findings of pneumonia and was treated on January 07 with doxycycline and Augmentin by PCP. At the time of CT, he reported ongoing left sided chest irritation, productive cough and fevers, which have since resolved. He has upcoming CT chest scheduled to assess for resolution of PNA. He reported suboptimal control on Wixela 250-50mcg one inhalation QD , DuoNeb and Singulair, unaware to use Wixela BID which he was advised to increase at the last visit. He continues to report dyspnea on exertion with associated chest tightness, denies cough/wheezing. He continues to smoke 1/2 ppd and not interested in quitting at this time. He denies any visits to urgent care or hospitalizations related to respiratory distress since the last visit. [facility] Medical History (Updated 03/06/25 @ 10:32 by Lo Hyman NP) Acute pharyngitis Acute respiratory disease Hyperlipidemia Anxiety COPD (chronic obstructive pulmonary disease) Leukocytosis Nicotine dependence, cigarettes, uncomplicated Dyslipidemia Surgical History History of esophagogastroduodenoscopy (EGD) History of colonoscopy History of total replacement of right shoulder joint Family History Father Diabetes Heavy drinker of alcohol Substance use disorder Mother Heart attack Heavy drinker of alcohol Substance use disorder Sister Substance use disorder Mental health disorder Social History Household Members: Significant Other Housing: Apartment Alcohol intake: never Patient Tobacco Use Status: Current everyday Tobacco user Tobacco use type: Cigarette Cigarette Packs Per Day: 0.5 Years Smoked: (onset 14yo, 1ppd x 42yrs, now 1/2ppd, 40pyh) e-Cigarette/Vaping Use: Never Used Second Hand Smoke Exposure: Yes service: Yes ([employer]) Current occupational status: disabled Cognitive needs: No Hearing needs: No Vision needs: Yes Review of Systems Const Denies chills, Denies excessive sweating, Denies fever(s), Denies headache(s) and Denies night sweats Eyes Denies dry eyes, Denies irritation and Denies itchy eyes ENT Reports Normal hearing present, Denies headache(s), Denies nasal congestion, Denies nasal discharge, Denies post nasal drip and Denies sore throat Card Denies chest pain, Denies chest pain at rest, Denies chest pain with activity, Denies claudication, Denies orthopnea and Denies paroxysmal nocturnal dyspnea Resp Denies chest congestion, Denies cough, Denies excessive phlegm production, Denies pain on inspiration, Denies pain with cough, Denies stridor and Denies wheezing Musc Denies myalgias Neuro Reports Normal hearing present and Denies headache(s) Endo Denies excessive sweating Rafy/Lymph Denies lymphadenopathy Aller/Immun Denies itchy eyes, Denies seasonal rhinorrhea and Denies wheezing Physical Exam Vital Signs: Last Vital Signs Pulse 85 05/01/25 10:47 BP 110/72 05/01/25 10:47 Pulse Ox 98 05/01/25 10:47 Oxygen Delivery Method Room Air 05/01/25 10:47 BMI result Body Mass Index 19.2 Const General: cooperative, healthy appearing, comfortable, no acute distress, well developed and alert Nutritional Appearance: thin Orientation/consciousness: patient oriented x3 Limitations: no limitations HEENT Head: Yes normal to inspection, Yes normocephalic and Yes atraumatic Ears: hearing grossly normal bilaterally and external ears normal Eyes General: appearance normal, both eyes and all related structures Eyelids: Yes eyelids normal Sclerae: sclerae normal EOM: EOMs intact bilaterally Neck Neck: Yes normal visual inspection and Yes no lymphadenopathy Lymphatic: no lymphadenopathy noted Chest Chest palpation & inspection: normal inspection of the chest Resp Effort & Inspection: normal respiratory effort, able to speak in complete sentences, no audible wheezes, no cough, no stridor, not tachypneic, no tripod positioning, no use of accessory muscles and prolonged expiratory phase Auscultation: diminished lung sounds Cardio Jugular venous distension: no JVD Rate: regular rate Rhythm: regular rhythm Skin Other: warm, dry General skin exam: no rashes or lesions noted Neuro General: patient oriented x3 Cranial nerves: Yes Normal hearing present Cognition (Neuro): normal cognition Gait exam (Neuro): Normal gait present Extrem General: Yes normal to inspection, Yes capillary refill normal, Yes no clubbing, cyanosis or edema and Yes no pedal edema Psych Appearance: grossly normal and well kempt Speech and movement: Normal speech and movement present and Clear speech present Affect: normal affect Attitude: cooperative Thought process: Normal thought process present Thought content: Normal thought content present Insight: Good insight present (Psych) Judgement: Good judgement present (Psych) Assessment & Plan Assessment & Plan (1) COPD (chronic obstructive pulmonary disease): Code(s): J44.9 - Chronic obstructive pulmonary disease, unspecified Category: Medical (2) Nicotine dependence, cigarettes, uncomplicated: Comment: (current smoker, onset 14, 1ppd x 42yrs, now 1/2ppd, 40pyh) Code(s): F17.210 - Nicotine dependence, cigarettes, uncomplicated Category: Medical (3) History of recent pneumonia: Code(s): Z87.01 - Personal history of pneumonia (recurrent) Category: Medical Plan Jose reports suboptimal control with Wixela 250 mcg will increase to 500 mcg. If ineffective, will switch to Trelegy. We reviewed the need for a follow-up CT chest to confirm the resolution of pneumonia and emphasized the importance of monitoring symptoms closely, which is scheduled next month. We again discussed smoking cessation and the potential use of nicotine replacement therapy when the patient is ready to quit. All questions were answered and patient is in agreement of plan. Will follow-up in 8-10 weeks or sooner if needed. Medications: New fluticasone propion-salmeterol 500-50 mcg/dose (Wixela Inhub) 1 inh inhalation Q12H 60 ea 0RF Refilled albuterol sulfate 90 mcg/actuation 2 puffs inhalation Q6H PRN 1 ea 3RF shortness of breath or wheezing ipratropium-albuterol 0.5 mg-3 mg(2.5 mg base)/3 mL 3 mL inhalation Q6-8H PRN 90 mL 3RF wheezing Discontinued fluticasone propion-salmeterol 250-50 mcg/dose (Wixela Inhub) Discontinued Reason: No Longer Medically Relevant 1 ea inhalation Q12H 60 ea 5RF Coding Level of Care Code Est Pt Level 4 (21753) Diagnoses COPD (chronic obstructive pulmonary disease) J44.9 Nicotine dependence, cigarettes, uncomplicated F17.210 History of recent pneumonia Z87.01
--- OUTSIDE RECORDS SUMMARY | 2025-05-01 11:58 | XMS_ITS | Clinical Summary ---
Author Organization [facility] Address [address] [place] [address] Care Team Providers Care Radiation Protection Engineer Name Role Phone Leah Forte DO Primary Care Provider [phone] Allergies No known active allergies Medications Medication [...] (1 of 2) 12/20/2013 Influenza Vaccine (#1) 2025 RSV Adult > 60+ Yrs or Pregn ant (1 - 1-dose 75+ series) 12/20/2038 Hepatitis B Vaccines Aged Out No long er eligible based on patient's age to complete this topic RSV Ped < 20 months Aged Out No longe r eligible based on patient's age to complete this topic Care Teams Radiation Protection Engineer Relationship Specialty Start Date End Date Leah Forte DO [address] [place] [address] [phone] PCP - General Family Medicine 01/20/20
== END 2025-05-01 11:11 | disposition home or self-care (01) ==
LOC: HO.HPS 10:44
PROVIDERS: PCP Nurse Practitioner Family; Visit Provider Nurse Practitioner Family
DX: J44.9 Chronic obstructive pulmonary disease, unspecified (principal); F17.210 Nicotine dependence, cigarettes, uncomplicated; Z87.01 Personal history of pneumonia (recurrent)
CPT/HCPCS: 99214

== ENCOUNTER → 2025-05-01 10:43 | Outpatient (BNVA) | payer OTHER, SELFPAY | PROVIDERS: PCP Nurse Practitioner Family; Visit Provider Nurse Practitioner Family | DX: J44.9 Chronic obstructive pulmonary disease, unspecified (principal); F17.210 Nicotine dependence, cigarettes, uncomplicated; Z87.01 Personal history of pneumonia (recurrent) | CPT/HCPCS: 99212 ==

== ENCOUNTER 2025-05-26 10:29 | Outpatient (AMB) | payer OTHER, SELFPAY ==
[2025-05-26 10:41] VITALS: BP 110/66; PULSE 89; TEMP 36.5; O2SAT 97; BMI 18.7
--- NOTE | 2025-05-26 10:41 | MHC.OFFWIV ---
Intake Vital Signs 05/26/25 10:41 Height 5 ft 6 in Weight 116 lb BMI 18.7 BP 110/66 Blood Pressure Location Lt brachial Position Sitting Pulse 89 Pulse Source Pulse Oximeter Temp 97.7 F Temp Source Oral Pulse Oximetry (%) 97 Oxygen Delivery Method Room Air Intake Visit Reasons: EP back pain/ soreness, hard time standing up Intake Note: pt presents with bilateral low back pain for 3 days while doing yard work, muscle spasms began last night Patient Tobacco Use Status: Current everyday Tobacco user Allergies No Known Allergies (No Known Allergies*) Allergy (Verified 05/26/25 10:45) Do you need a note to return to daycare/school/sports/work: Yes HPI HPI Comments History of Present Illness Details This is a 59-year-old male with a past medical history of COPD not currently oxygen dependent presenting for evaluation of low back pain that he has had for the past three days. Patient states that he has been doing yard work including bending and picking up patio furniture. Patient denies any other additional injury or trauma preceding the onset of his symptoms. Patient denies any radiation of pain into his lower extremities and describes the pain as a constant ache. He has been using a heating pad, ?muscle rub? and Tylenol without relief of his discomfort. [facility] Medical History (Updated 05/26/25 @ 11:17 by Britt Weaver PA-C) Acute pharyngitis Acute respiratory disease Hyperlipidemia Anxiety COPD (chronic obstructive pulmonary disease) Leukocytosis Nicotine dependence, cigarettes, uncomplicated Dyslipidemia Surgical History History of esophagogastroduodenoscopy (EGD) History of colonoscopy History of total replacement of right shoulder joint Family History Father Diabetes Heavy drinker of alcohol Substance use disorder Mother Heart attack Heavy drinker of alcohol Substance use disorder Sister Substance use disorder Mental health disorder Social History Household Members: Significant Other Housing: Apartment Alcohol intake: never Patient Tobacco Use Status: Current everyday Tobacco user Tobacco use type: Cigarette Cigarette Packs Per Day: 0.5 Years Smoked: (onset 14yo, 1ppd x 42yrs, now 1/2ppd, 40pyh) e-Cigarette/Vaping Use: Never Used Second Hand Smoke Exposure: Yes service: Yes ([employer]) Current occupational status: disabled Cognitive needs: No Hearing needs: No Vision needs: Yes Review of Systems Const All systems reviewed & are unremarkable except as noted in HPI and below Denies body aches, Denies chills, Reports fatigue, Denies fever(s), Denies lethargy and Denies malaise ENT Denies neck pain and Denies disequilibrium Card Reports no additional complaints Resp Reports no additional complaints Musc Reports back pain, Denies arthralgias, Denies joint swelling, Denies neck pain, Denies numbness, Denies radiating pain into limb, Reports stiffness (back) and Denies tingling Skin/Breast Reports system reviewed and no additional complaints, except as documented Neuro Reports no additional complaints, Denies numbness, Denies tingling, Denies paresthesias, Denies tremor(s) and Denies disequilibrium Psych Reports no additional complaints Endo Reports no additional complaints and Reports fatigue Rafy/Lymph Reports no additional complaints Aller/Immun Reports no additional complaints Physical Exam Vital Signs: Last Vital Signs Temp 97.7 F 05/26/25 10:41 Pulse 89 05/26/25 10:41 BP 110/66 05/26/25 10:41 Pulse Ox 97 05/26/25 10:41 Oxygen Delivery Method Room Air 05/26/25 10:41 BMI result Body Mass Index 18.7 Const General: cooperative, no acute distress, well developed, alert, awake, anxious and tired appearing; No diaphoretic, ill appearing or lethargic Nutritional Appearance: thin Orientation/consciousness: patient oriented x3 and No lethargic Limitations: no limitations Back/Spine/Pelvis Thoracic/Lumbar Spine: No straight leg raise negative bilaterally, paraspinal muscle tenderness bilaterally in the mid lumbar and in the lower lumbar, thoraco-lumbar ROM limited, No thoracic spinal tenderness, lumbar spinal tenderness and No straight leg raise positive Sacroiliac joints: bilaterally nontender Skin General skin exam: no rashes or lesions noted Neuro General: patient oriented x3 Gait exam (Neuro): Normal gait present Psych Appearance: grossly normal Mental Status: mental status grossly normal Insight: Good insight present (Psych) Judgement: Good judgement present (Psych) Assessment & Plan Assessment & Plan (1) Lumbar strain: Comment: Patient appears uncomfortable but is in no acute distress. Patient is ambulating independently without ataxia. Patient's history, coupled with his examination is consistent with a lumbar strain. Imaging is deferred at this time and he will be discharged home with anti-inflammatory and muscle relaxant for initial management. Code(s): S39.012A - Strain of muscle, fascia and tendon of lower back, initial encounter Qualifiers: Encounter type: initial encounter Qualified Code(s): S39.012A - Strain of muscle, fascia and tendon of lower back, initial encounter Plan: Naprosyn 500 mg q.12 hours, methocarbamol 750 mg t.i.d., follow up with PCP as needed. Medications: New naproxen (Naprosyn) 500 mg PO BID 20 tabs 0RF methocarbamol 750 mg PO TID 30 tabs 0RF Coding Level of Care Code Est Pt Level 3 (03388) Diagnoses Strain of lumbar region, initial encounter S39.012A Encounter type: initial encounter Time Spent (min) 20
--- OUTSIDE RECORDS SUMMARY | 2025-05-26 11:05 | XMS_ITS | Clinical Summary ---
Author Organization [facility] Address [address] [place] [address] Care Team Providers Care Shell Trim Tool Setter Name Role Phone Leah Forte DO Primary Care Provider [phone] Allergies No known active allergies Medications Medication [...] age to complete this topic Care Teams Shell Trim Tool Setter Relationship Specialty Start Date End Date Leah Forte DO [address] [place] [address] [phone] PCP - General Family Medicine 01/20/20
== END 2025-05-26 11:15 | disposition home or self-care (01) ==
PROVIDERS: PCP Nurse Practitioner Family; Visit Provider Physician Assistant
DX: S39.012A Strain of muscle, fascia and tendon of lower back, initial encounter (principal)

== ENCOUNTER → 2025-05-26 10:29 | Outpatient (BNVA) | payer OTHER, SELFPAY | PROVIDERS: PCP Nurse Practitioner Family; Visit Provider Physician Assistant | DX: S39.012A Strain of muscle, fascia and tendon of lower back, initial encounter (principal); J44.9 Chronic obstructive pulmonary disease, unspecified; X50.0XXA Overexertion from strenuous movement or load, initial encounter; Y93.9 Activity, unspecified; Y92.9 Unspecified place or not applicable; Y99.9 Unspecified external cause status | CPT/HCPCS: 99212 ==

== ENCOUNTER 2025-06-02 07:14 | Outpatient (REF) | payer OTHER, SELFPAY ==
--- NOTE | ~2025-06-02 | CT_ITS ---
EXAMINATION: CT CHEST WITHOUT IV CONTRAST INDICATION: Z87.01 - Personal history of pneumonia (recurrent) COMPARISON: Comparison is made to prior examinations dated 01/03/2025 and 12/30/2023. TECHNIQUE: Helical CT scan of the chest was performed without intravenous contrast. Coronal and sagittal reformatted images were generated and reviewed. This CT exam was performed with one or more of the following dose reduction techniques: automated exposure control, adjustment of the mA and/or kV according to patient size, use of iterative reconstruction technique. DLP: 96 mGy-cm CHEST: THYROID: The thyroid is unremarkable. LUNGS: Again seen are mild emphysematous changes. There has been moderate clearing of the previously seen right lower lobe pneumonia. A small residual airspace opacity remains. There is linear scarring in the left lower lobe. Again seen is a 3 mm calcified granuloma in the right upper lobe (series 4, image 37). MEDIASTINUM: There is no mediastinal lymphadenopathy. LIAN: Evaluation of the hilar regions is limited by lack of intravenous contrast material. CARDIOVASCULATURE: The heart is normal in size. There is no pericardial effusion. The thoracic aorta is normal in caliber. DEGREE OF CORONARY CALCIFICATION: none PLEURA: There is no pleural effusion. No pneumothorax. MAIN AIRWAYS: The mainstem bronchi and proximal branches are patent. AXILLA: There is no axillary lymphadenopathy. BONES AND SOFT TISSUES: There is degenerative disc disease of the spine. UPPER ABDOMEN: The visualized portions of the liver, spleen, and adrenals have an unremarkable unenhanced appearance. CT/CT chest wo IV con IMPRESSION: Moderate clearing of the previously seen right lower lobe pneumonia. Residual airspace opacity remains. Scarring in the left lower lobe. Continued follow-up is recommended with chest CT in 6 months to document complete clearing on the right. Electronically signed by: Edwin Mcintosh MD 06/02/2025 08:10 AM EDT
--- OUTSIDE RECORDS SUMMARY | 2025-06-02 07:17 | XMS_ITS | Clinical Summary ---
Author Organization [facility] Address [address] [place] [address] Care Team Providers Care Hydraulic Engineer Name Role Phone Leah Forte DO Primary Care Provider [phone] Allergies No known active allergies Medications Medication [...] age to complete this topic Care Teams Hydraulic Engineer Relationship Specialty Start Date End Date Leah Forte DO [address] [place] [address] [phone] PCP - General Family Medicine 01/20/20
== END 2025-06-02 07:15 | disposition home or self-care (01) ==
LOC: HO.CT 07:14
PROVIDERS: PCP Nurse Practitioner Family; Visit Provider Nurse Practitioner Family
DX: Z87.01 Personal history of pneumonia (recurrent) (principal)
CPT/HCPCS: 71250

== ENCOUNTER → 2025-06-02 07:15 | Outpatient (BNV) | payer OTHER, SELFPAY | PROVIDERS: PCP Nurse Practitioner Family; Visit Provider Radiology Diagnostic Radiology | DX: J18.1 Lobar pneumonia, unspecified organism (principal) | CPT/HCPCS: 71250 ==

== ENCOUNTER 2025-07-05 10:22 | Outpatient (AMB) | payer OTHER, SELFPAY ==
[2025-07-05 10:33] VITALS: BP 120/70; PULSE 87; RESP 16; O2SAT 97; BMI 19.9
--- NOTE | 2025-07-05 10:33 | A.OFFPC_ITS ---
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 Required: No Accompanied by: Self / Same As Patient Allergies No Known Allergies (No Known Allergies*) Allergy (Verified 07/05/25 10:36) Medication List - Last Reconciled 07/05/25 by MARE Prieto- albuterol sulfate 90 mcg/actuation 2 puffs inhalation Q6H PRN atorvastatin 20 mg PO BEDTIME citalopram (Celexa) 20 mg PO DAILY fluticasone propion-salmeterol 500-50 mcg/dose (Wixela Inhub) 1 ea inhalation Q12H ipratropium-albuterol 0.5 mg-3 mg(2.5 mg base)/3 mL 3 mL inhalation Q6-8H PRN lorazepam 1 mg PO TID methocarbamol 750 mg PO TID 10 days miscellaneous medical supply As directed, heating pad montelukast 10 mg PO DAILY vkwuyftdrbws-mpcj-uhxzv acid 18-400 mg-mcg (Spectravite Adult) 1 tab PO DAILY naproxen (Naprosyn) 500 mg PO BID nebulizer accessories As directed nebulizers As directed Tobacco use date assessed: 07/05/25 Dental Screening Dental Screen Date: 07/05/25 Did you have a dental visit in the last 12 months?: Yes Did you have a dental problem in the last 6 months where you did not have access to dental care?: No Was dental information given to patient?: Patient has dentist HPI 6 months f/up HPI Details History of Present Illness The patient is a 59 year old male presenting for a physical exam. He reports a recent onset of lower transverse back pain that started after bending over to pick something up. He was evaluated at an urgent care for this issue and experiences intermittent radiculopathy, which is reportedly improving. Will have him stretch on a daily basis, and will refer to PT The patient is a current smoker. His health maintenance includes up-to-date colon cancer screening, PSA screening, and vaccinations. He also participates in a low-dose CT scan screening program. Health Maintenance - Colon cancer screening is up to date. - Prostate-specific antigen (PSA) screen ing is up to date. - Vaccinations are up to date. - He is enrolled in a low-dose CT scan p tin for lung cancer screening. Social History - Substance Use: The patient is a smoker . Review of Systems - Cardiovascular: Denies chest pain. - Respiratory: Denies shortness of breat h or increased shortness of breath. - Gastrointestinal: Denies abdominal andre n, constipation, or diarrhea. - Musculoskeletal: Reports recent onset of lower back pain in the transverse region. - Neurological: Reports intermittent rad iculopathy that is improving. Physical Exam General: Cooperative, healthy appearing, comfortable, no acute distress and well developed Orientation: Patient oriented x3 Limitations: No limitations Head: Normal to inspection Ears: Hearing grossly normal bilaterally Nose: Normal external nose present Face and sinus: Normal facial exam Eyes: Appearance normal, both eyes and all related structures Neck: Normal visual inspection and Yes full ROM Respiratory: Diminished bilaterally as part of our lower dose CAT scan program Cardiovascular: Regular rate and rhythm. Normal S1 and S2 GI: Normal to inspection. Soft to palpation and nontender : Testicles without masses/lesions and no hernias appreciated Skin: No rashes or lesions noted Neuro: Patient oriented x3 Extremities: Normal to inspection, negative straight leg raises, positive patellar reflexes Results - No diagnostic results were reviewed du ring the visit. Plan 1. Lower Back Pain With Radiculopathy The patient presented with recent onset of lower back pain with intermittent radiculopathy, which is improving. Since x-ray results from a recent urgent care visit were unavailable, new x-rays will be ordered for further evaluation. 2. Preventative Care Routine labs for the patient's physical examination have been ordered. Status of colon cancer screening, PSA, and vaccinations were confirmed to be up to date. 3. Tobacco Use Due to the patient's smoking history, he will continue to participate in the low-dose CT scan screening program for lung cancer. Discussion Notes I discussed with the patient that I am ordering an x-ray for his lower back pain, as the results from his recent urgent care visit were not available. We noted that his radicular symptoms are improving. I have ordered routine labs for his physical exam. We confirmed that his health maintenance, including colon and prostate cancer screenings and vaccinations, is up to date, and he will continue with the low-dose CT scan program for lung cancer screening due to his smoking history. Patient Instructions - Please proceed to get the lower back x -ray that has been ordered for you. - We have also ordered routine blood keith ts for your physical exam. - Your preventative screenings for colon and prostate cancer, as well as your vaccinations, are all current. - It is important to continue with your low-dose CT scan lung screening program because you are a smoker. [facility] Medical History Acute pharyngitis Acute respiratory disease Hyperlipidemia Anxiety COPD (chronic obstructive pulmonary disease) Leukocytosis Nicotine dependence, cigarettes, uncomplicated Dyslipidemia Surgical History History of esophagogastroduodenoscopy (EGD) History of colonoscopy History of total replacement of right shoulder joint Family History Father Diabetes Heavy drinker of alcohol Substance use disorder Mother Heart attack Heavy drinker of alcohol Substance use disorder Sister Substance use disorder Mental health disorder Social History Household Members: Significant Other Housing: Apartment Alcohol intake: never Patient Tobacco Use Status: Current everyday Tobacco user Tobacco use type: Cigarette Cigarette Packs Per Day: 0.5 Years Smoked: (onset 14yo, 1ppd x 42yrs, now 1/2ppd, 40pyh) e-Cigarette/Vaping Use: Never Used Second Hand Smoke Exposure: Yes service: Yes ([employer]) Current occupational status: disabled Cognitive needs: No Hearing needs: No Vision needs: Yes Questionnaire PHQ-9 Over the last 2 weeks, how often have you been bothered by any of the following problems? 1. Little interest or pleasure in doing things: nearly every day 2. Feeling down, depressed, or hopeless: more than half the days 3. Trouble falling or staying asleep, or sleeping too much: not at all 4. Feeling tired or having little energy: more than half the days 5. Poor appetite or overeating: more than half the days 6. Feeling bad about yourself - or that you are a failure or have let yourself or your family down: not at all 7. Trouble concentrating on things, such as reading the newspaper or watching television: not at all 8. Moving or speaking so slowly that other people could have noticed. Or the opposite - being so fidgety or restless that you have been moving around a lot more than usual: not at all 9. Thoughts that you would be better off or of hurting yourself in some way: not at all Total score: 9 Depression Screening Interpretation: Positive (denies any si or hi) Depression Screening Follow-up: Existing condition and Declines treatment Depression Screening Done: Yes 33363 - PHQ-9 Billing: Yes Source: Developed by Drs. Edwin Pinto, Kinjal Allen, Franco Archibald and colleagues, with an educational sonia from [employer]. Thrive Questionnaire Date Thrive assessed: 12/30/24 I am a: Patient What is your living situation today?: I have a steady place to live Within the past 12 months, did the food you bought not last and you didn't have the money to get more?: I choose not to answer this question Within the past 12 months, did you worry whether your food would run out before you got money to buy more?: I choose not to answer this question Do you have trouble paying for medicines?: Yes Do you have trouble getting transportation to medical appointments?: I choose not to answer this question Do you have trouble paying your heating and electricity bill?: No Do you have trouble taking care of your child, family member or friend?: I choose not to answer this question Do you have trouble with day-to-day activities such as bathing, preparing meals, shopping, managing finances, etc.?: I choose not to answer this question Are you currently unemployed and looking for a job?: No Are you interested in more education?: I choose not to answer this question Please select the resources that you would like help with: Care for elder or disabled THRIVE Score: 0 EZEKIEL-7 AMB Questionnaire EZEKIEL-7 Date EZEKIEL - 7 assessed: 07/05/25 Feeling nervous, anxious, or on edge: 0 = Not at all Not being able to stop or control worryin = Not at all Worrying too much about different things: 0 = Not at all Trouble relaxin = Not at all Being so restless that it is hard to sit still: 0 = Not at all Becoming easily annoyed or irritable: 0 = Not at all Feeling afraid as if something awful might happen: 0 = Not at all Total EZEKIEL-7 score (0-4 normal; 5-9 mild; 10-14 moderate; 15-21 severe): 0 Source: Developed by Drs. Edwin Pinto, Kinjal Allen, Franco Archibald and colleagues, with an educational sonia from [employer]. EZEKIEL-7 Assessment Billing EZEKIEL-7 Assessment Tool: EZEKIEL-7 Assessment 96853 Physical exam (Primary Care) Vital Signs: Last Vital Signs Pulse 87 07/05/25 10:33 Resp 16 07/05/25 10:33 BP 120/70 07/05/25 10:33 Pulse Ox 97 07/05/25 10:33 Oxygen Delivery Method Room Air 07/05/25 10:33 BMI result Body Mass Index 19.9 Tobacco/Smoking Status: Tobacco use Status Tobacco use date assessed 07/05/25 07/05/25 10:40 Patient Tobacco Use Status Current everyday Tobacco 07/05/25 10:40 Tobacco use type Cigarette 07/05/25 10:40 e-Cigarette/Vaping Use Never Used 07/05/25 10:40 PHQ-9: PHQ-9 Score PHQ-9: Total score 9 07/05/25 10:40 Depression Screening Interpretation: Positive (denies any si or hi) Depression Screening Follow-up: Existing condition and Declines treatment Thrive Assessment: Date of Thrive Assessment Date Thrive assessed 12/30/24 07/05/25 10:40 Coding Level of Care Code Est Pt Level 3 (19297) Est Pt Prev Care 40-64y(24929) Diagnoses Physical exam Z00.00 Vitamin D deficiency E55.9 Strain of lumbar region, initial encounter S39.012A Encounter type: initial encounter Additional Codes EZEKIEL-7 Assessment Billing - EZEKIEL-7 Assessment Tool: EZEKIEL-7 Assessment 90413 ([id number]) PHQ-9 - 00838 - PHQ-9 Billing: Yes ([id number]) Assessment & Plan Assessment & Plan (1) Physical exam: Code(s): Z00.00 - Encounter for general adult medical examination without abnormal findings Category: Medical (2) Vitamin D deficiency: Code(s): E55.9 - Vitamin D deficiency, unspecified Category: Medical (3) Lumbar strain: Code(s): S39.012A - Strain of muscle, fascia and tendon of lower back, initial encounter Category: Medical Qualifiers: Encounter type: initial encounter Qualified Code(s): S39.012A - Strain of muscle, fascia and tendon of lower back, initial encounter (4) Lumbar strain: Code(s): S39.012A - Strain of muscle, fascia and tendon of lower back, initial encounter Category: Medical Qualifiers: Encounter type: initial encounter Qualified Code(s): S39.012A - Strain of muscle, fascia and tendon of lower back, initial encounter Plan . Orders: Orders Complete Blood Count Auto Diff Today Z00.00 - Encounter for general adult medical examination without abnormal findings UA CC w/rflx Micro + Cult Today Z00.00 - Encounter for general adult medical examination without abnormal findings Lipid Panel Today Z00.00 - Encounter for general adult medical examination without abnormal findings Comprehensive [place]. Panel Fast Today Z00.00 - Encounter for general adult medical examination without abnormal findings TSH reflex Free T4 Today Z00.00 - Encounter for general adult medical examination without abnormal findings Vitamin D 25-OH Total Today E55.9 - Vitamin D deficiency, unspecified XR lumbar spine 2-3V Today S39.012A - Strain of muscle, fascia and tendon of lower back, initial encounter PT Evaluation and Treatment Today S39.012A - Strain of muscle, fascia and tendon of lower back, initial encounter Medications: Changed From methocarbamol 750 mg PO TID 30 tabs 0RF To methocarbamol 750 mg PO TID 30 tabs 0RF 10 days Refilled methocarbamol 750 mg PO TID 30 tabs 0RF
--- OUTSIDE RECORDS SUMMARY | 2025-07-05 12:53 | XMS_ITS | Clinical Summary ---
Author Organization [facility] Address [address] [place] [address] Care Team Providers Care Line Construction Supervisor Name Role Phone Leah Forte DO Primary Care Provider Allergies No known active allergies Medications Medication [...] age to complete this topic Care Teams Line Construction Supervisor Relationship Specialty Start Date End Date Leah Forte DO [address] [place] [address] [phone] PCP - General Family Medicine 01/20/20
== END 2025-07-05 14:54 | disposition home or self-care (01) ==
LOC: HO.HMCC 10:23
PROVIDERS: PCP Nurse Practitioner Family; Visit Provider Nurse Practitioner Family
DX: Z00.00 Encounter for general adult medical examination without abnormal findings (principal); E55.9 Vitamin D deficiency, unspecified; S39.012A Strain of muscle, fascia and tendon of lower back, initial encounter

== ENCOUNTER → 2025-07-05 10:22 | Outpatient (BNVA) | payer OTHER, SELFPAY | PROVIDERS: PCP Nurse Practitioner Family; Visit Provider Nurse Practitioner Family | DX: Z00.00 Encounter for general adult medical examination without abnormal findings (principal); M54.16 Radiculopathy, lumbar region; E55.9 Vitamin D deficiency, unspecified; S39.012A Strain of muscle, fascia and tendon of lower back, initial encounter; F17.210 Nicotine dependence, cigarettes, uncomplicated; X58.XXXA Exposure to other specified factors, initial encounter; Y93.9 Activity, unspecified; Y92.9 Unspecified place or not applicable; Y99.9 Unspecified external cause status | CPT/HCPCS: 96127; 99212; 99396 ==

== ENCOUNTER 2025-07-13 06:09 | Outpatient (REF) | payer OTHER, SELFPAY ==
--- OUTSIDE RECORDS SUMMARY | 2025-07-13 06:11 | XMS_ITS | Clinical Summary ---
Author Organization [facility] Address [address] [place] [address] Care Team Providers Care Auto Clutch Specialist Name Role Phone Leah Forte DO Primary Care Provider [phone] Allergies No known active allergies Medications Medication [...] age to complete this topic Care Teams Auto Clutch Specialist Relationship Specialty Start Date End Date Leah Forte DO [address] [place] [address] [phone] PCP - General Family Medicine 01/20/20
[2025-07-13 10:12] LABS: MANUAL DIFF FLAG NO
[2025-07-13 10:51] LABS: Alanine Aminotransferase 53 U/L (0-40); Albumin Level 4.4 g/dL (3.5-5.0); Alkaline Phosphatase 73 U/L (39-117); Anion Gap 10 (12-20); Aspartate Amino Transferase 37 U/L (5-37); Blood Urea Nitrogen 18 mg/dL (9-16); Calcium 9.3 mg/dL (8.4-10.2); Carbon Dioxide 26 mmol/L (22-29); Chloride 109 mmol/L (96-108); Cholesterol 157 mg/dL (<200); Estimated Glomerular Filt Rate > 60; HDL Cholesterol 55 mg/dL (>40); Potassium 4.2 mmol/L (3.3-5.1); Sodium 141 mmol/L (135-145); Total Protein 6.9 g/dL (6.5-8.0); Triglycerides 102 mg/dL (<150)
[2025-07-13 10:57] LABS: Appearance Urine Cloudy; Glucose Urine UA Negative (Negative); PH 6.5 (5.0-9.0); Specific Gravity - Urine 1.020 (1.005-1.025)
[2025-07-13 11:03] LABS: Hematocrit 48.7 % (42.0-52.0); Hemoglobin 15.8 g/dl (14.0-18.0); Imm Gran Abs Auto 0.09 X10*3/uL (0.00-0.03); Imm Gran Pct Auto 0.8 % (0.0-0.4); Lymphocytes Absolute Auto 3.5 X10*3/uL (1.2-4.9); Mean Corpuscular HGB Conc 32.4 g/dl (31.0-36.0); Mean Corpuscular Hemoglobin 30.4 pg (27.0-33.0); Mean Corpuscular Volume 93.7 fL (80.0-98.0); NRBC Abs Auto 0.000 X10*3/uL (0.0-0.012); NRBC Pct Auto 0.0 /100WBC (0.0-0.2); Platelet Count 173 X10*3/uL (160-400); Red Blood Count 5.20 X10*6/uL (4.60-5.80); White Blood Count 11.7 X10*3/uL (4.8-10.8)
== END 2025-07-13 06:10 | disposition home or self-care (01) ==
LOC: HO.HMGCLDS 06:09
PROVIDERS: PCP Nurse Practitioner Family; Visit Provider Nurse Practitioner Family
DX: Z00.00 Encounter for general adult medical examination without abnormal findings (principal); Z13.6 Encounter for screening for cardiovascular disorders; E55.9 Vitamin D deficiency, unspecified
CPT/HCPCS: 36415; 80053; 80061; 81003; 82306; 84443; 85025

== ENCOUNTER 2025-07-17 11:36 | Outpatient (AMB) | payer OTHER, SELFPAY ==
[2025-07-17 11:42] VITALS: BP 100/62; PULSE 93; O2SAT 99; BMI 19.7
--- NOTE | 2025-07-17 11:42 | MHC.OFFVIS ---
Vital Signs 07/17/25 11:42 Height 5 ft 6 in Weight 122 lb 5.705 oz BMI 19.7 BP 100/62 Blood Pressure Location Rt brachial Position Sitting Pulse 93 Pulse Source Pulse Oximeter Pulse Oximetry (%) 99 Oxygen Delivery Method Room Air Intake Visit Reasons: Pneumonia Allergies No Known Allergies (No Known Allergies*) Allergy (Verified 07/17/25 11:44) HPI HPI Pneumonia: Details: Jose is a pleasant 59-year-old male, current 40 pack-year smoker, with underlying moderate COPD. He is a part of the lung screening program at [facility] which came back as a RADS0 on 01/04 due to findings of pneumonia and was treated on January 07 with doxycycline and Augmentin by PCP. Repeat imaging 05/2025 demonstrated resolving pneumonia, with recommendations for follow up to resolution. At the last visit, Wixela was increased to 500 mcg and reports significant improvements, denies respiratory symptoms at this time. He continues to smoke 1/2 ppd and not interested in quitting at this time. He denies any visits to urgent care or hospitalizations related to respiratory distress since the last visit. [facility] Medical History Acute pharyngitis Acute respiratory disease Hyperlipidemia Anxiety COPD (chronic obstructive pulmonary disease) Leukocytosis Nicotine dependence, cigarettes, uncomplicated Dyslipidemia Surgical History History of esophagogastroduodenoscopy (EGD) History of colonoscopy History of total replacement of right shoulder joint Family History Father Diabetes Heavy drinker of alcohol Substance use disorder Mother Heart attack Heavy drinker of alcohol Substance use disorder Sister Substance use disorder Mental health disorder Social History Household Members: Significant Other Housing: Apartment Alcohol intake: never Patient Tobacco Use Status: Current everyday Tobacco user Tobacco use type: Cigarette Cigarette Packs Per Day: 0.5 Years Smoked: (onset 14yo, 1ppd x 42yrs, now 1/2ppd, 40pyh) e-Cigarette/Vaping Use: Never Used Second Hand Smoke Exposure: Yes service: Yes ([email or web address]) Current occupational status: disabled Cognitive needs: No Hearing needs: No Vision needs: Yes Review of Systems Const Denies chills, Denies excessive sweating, Denies fever(s), Denies headache(s) and Denies night sweats Eyes Denies dry eyes, Denies irritation and Denies itchy eyes ENT Reports Normal hearing present, Denies headache(s), Denies nasal congestion, Denies nasal discharge, Denies post nasal drip and Denies sore throat Card Denies chest pain, Denies chest pain at rest, Denies chest pain with activity, Denies claudication, Denies orthopnea and Denies paroxysmal nocturnal dyspnea Resp Denies chest congestion, Denies cough, Denies excessive phlegm production, Denies pain on inspiration, Denies pain with cough, Denies stridor and Denies wheezing Musc Denies myalgias Neuro Reports Normal hearing present and Denies headache(s) Endo Denies excessive sweating Rafy/Lymph Denies lymphadenopathy Aller/Immun Denies itchy eyes, Denies seasonal rhinorrhea and Denies wheezing Physical Exam Vital Signs: Last Vital Signs Pulse 93 07/17/25 11:42 BP 100/62 07/17/25 11:42 Pulse Ox 99 07/17/25 11:42 Oxygen Delivery Method Room Air 07/17/25 11:42 BMI result Body Mass Index 19.7 Const General: cooperative, comfortable, no acute distress and alert Nutritional Appearance: thin Orientation/consciousness: patient oriented x3 Limitations: no limitations HEENT Head: Yes normal to inspection, Yes normocephalic and Yes atraumatic Ears: hearing grossly normal bilaterally and external ears normal Eyes General: appearance normal, both eyes and all related structures Eyelids: Yes eyelids normal Sclerae: sclerae normal EOM: EOMs intact bilaterally Neck Neck: Yes normal visual inspection and Yes no lymphadenopathy Lymphatic: no lymphadenopathy noted Chest Chest palpation & inspection: normal inspection of the chest Resp Effort & Inspection: normal respiratory effort, able to speak in complete sentences, no audible wheezes, no cough, no stridor, not tachypneic, no tripod positioning, no use of accessory muscles and prolonged expiratory phase Auscultation: diminished lung sounds Cardio Jugular venous distension: no JVD Rate: regular rate Rhythm: regular rhythm Skin Other: warm, dry General skin exam: no rashes or lesions noted Neuro General: patient oriented x3 Cranial nerves: Yes Normal hearing present Cognition (Neuro): normal cognition Gait exam (Neuro): Normal gait present Extrem General: Yes normal to inspection, Yes capillary refill normal, Yes no clubbing, cyanosis or edema and Yes no pedal edema Psych Appearance: grossly normal and well kempt Speech and movement: Normal speech and movement present and Clear speech present Affect: normal affect Attitude: cooperative Thought process: Normal thought process present Thought content: Normal thought content present Insight: Good insight present (Psych) Judgement: Good judgement present (Psych) Results Reviewed Results Reviewed: [address] [address] [address] Scan Report Signed Patient: Jose Tobar MR#: [id number] : 1965 Acct:[id number] Age/Sex: 59 / M ADM Date: 06/02/25 Loc: .CT Attending Dr: Lo Hyman NP Ordering Physician: Lo Hyman NP Date of Service: 06/02/25 Procedure(s): CT chest wo IV con Accession Number(s): [id number] cc: Magdy Resendez FILM INSPECTOR-; Lo Hyman NP~ Report Number: [id number]: Total DLP = 96.00 mGy-cm Reason for Exam: Z87.01 - Personal history of pneumonia (recurrent) EXAMINATION: CT CHEST WITHOUT IV CONTRAST INDICATION: Z87.01 - Personal history of pneumonia (recurrent) COMPARISON: Comparison is made to prior examinations dated 01/03/2025 and 12/30/2023. TECHNIQUE: Helical CT scan of the chest was performed without intravenous contrast. Coronal and sagittal reformatted images were generated and reviewed. This CT exam was performed with one or more of the following dose reduction techniques: automated exposure control, adjustment of the mA and/or kV according to patient size, use of iterative reconstruction technique. DLP: 96 mGy-cm CHEST: THYROID: The thyroid is unremarkable. LUNGS: Again seen are mild emphysematous changes. There has been moderate clearing of the previously seen right lower lobe pneumonia. A small residual airspace opacity remains. There is linear scarring in the left lower lobe. Again seen is a 3 mm calcified granuloma in the right upper lobe (series 4, image 37). MEDIASTINUM: There is no mediastinal lymphadenopathy. LIAN: Evaluation of the hilar regions is limited by lack of intravenous contrast material. CARDIOVASCULATURE: The heart is normal in size. There is no pericardial effusion. The thoracic aorta is normal in caliber. DEGREE OF CORONARY CALCIFICATION: none PLEURA: There is no pleural effusion. No pneumothorax. MAIN AIRWAYS: The mainstem bronchi and proximal branches are patent. AXILLA: There is no axillary lymphadenopathy. BONES AND SOFT TISSUES: There is degenerative disc disease of the spine. UPPER ABDOMEN: The visualized portions of the liver, spleen, and adrenals have an unremarkable unenhanced appearance. CT/CT chest wo IV con IMPRESSION: Moderate clearing of the previously seen right lower lobe pneumonia. Residual airspace opacity remains. Scarring in the left lower lobe. Continued follow-up is recommended with chest CT in 6 months to document complete clearing on the right. Electronically signed by: Edwin Mcintosh MD 06/02/2025 08:10 AM EDT Dictated By: Edwin Mcintosh MD Signed By: <Electronically signed by Edwin Mcintosh MD in OV> 06/02/25 0810 DD/ 0737 TD/TT: 06/02/25 0751 Spanish Teacher: Assessment & Plan Assessment & Plan (1) COPD (chronic obstructive pulmonary disease): Code(s): J44.9 - Chronic obstructive pulmonary disease, unspecified Category: Medical (2) Nicotine dependence, cigarettes, uncomplicated: Comment: (current smoker, onset 14, 1ppd x 42yrs, now 1/2ppd, 40pyh) Code(s): F17.210 - Nicotine dependence, cigarettes, uncomplicated Category: Medical (3) History of recent pneumonia: Code(s): Z87.01 - Personal history of pneumonia (recurrent) Category: Medical Plan Jose reports good control on current regimen, advised to continue Wixela 500 mcg and Albuterol MDI PRN. If ineffective, will switch to Trelegy. We reviewed 05/[address] which demonstrated moderate clearing of the previously seen right lower lobe pneumonia, residual airspace opacity remains. Scarring in the left lower lobe. Continued follow-up is recommended with chest CT in 6 months to document complete clearing on the right. Order previously placed for [address] to be performed 11/2024. We again discussed smoking cessation and the potential use of nicotine replacement therapy when the patient is ready to quit. All questions were answered and patient is in agreement of plan. Will follow-up to review results or sooner if needed. Medications: Refilled ipratropium-albuterol 0.5 mg-3 mg(2.5 mg base)/3 mL 3 mL inhalation Q6-8H PRN 90 mL 3RF wheezing fluticasone propion-salmeterol 500-50 mcg/dose (Wixela Inhub) 1 ea inhalation Q12H 60 ea 6RF albuterol sulfate 90 mcg/actuation 2 puffs inhalation Q6H PRN 1 ea 3RF shortness of breath or wheezing Coding Level of Care Code Est Pt Level 4 (93303) Diagnoses COPD (chronic obstructive pulmonary disease) J44.9 Nicotine dependence, cigarettes, uncomplicated F17.210 History of recent pneumonia Z87.01
--- OUTSIDE RECORDS SUMMARY | 2025-07-17 14:01 | XMS_ITS | Clinical Summary ---
Author Organization Formerly [facility] Address [address] [place] [address] Care Team Providers Care Foundation Drill Operator Helper Name Role Phone Leah Forte DO Primary Care Provider [phone] Allergies No known active allergies Medications Medication [...] age to complete this topic Care Teams Foundation Drill Operator Helper Relationship Specialty Start Date End Date Leah Forte DO [address] [place] [address] [phone] PCP - General Family Medicine 01/20/20
== END 2025-07-17 12:10 | disposition home or self-care (01) ==
LOC: HO.HPS 11:37
PROVIDERS: PCP Nurse Practitioner Family; Visit Provider Nurse Practitioner Family
DX: J44.9 Chronic obstructive pulmonary disease, unspecified (principal); F17.210 Nicotine dependence, cigarettes, uncomplicated; Z87.01 Personal history of pneumonia (recurrent)
CPT/HCPCS: 99214

== ENCOUNTER → 2025-07-17 11:36 | Outpatient (BNVA) | payer OTHER, SELFPAY | PROVIDERS: PCP Nurse Practitioner Family; Visit Provider Nurse Practitioner Family | DX: Z09 Encounter for follow-up examination after completed treatment for conditions other than malignant neoplasm (principal); Z87.01 Personal history of pneumonia (recurrent); J44.9 Chronic obstructive pulmonary disease, unspecified; F17.210 Nicotine dependence, cigarettes, uncomplicated | CPT/HCPCS: 99212 ==

== ENCOUNTER 2025-07-26 18:36 | Emergency (ER) | payer OTHER, SELFPAY ==
--- NOTE | 2025-07-26 | ECG_ITS ---
Test Reason : SVT Blood Pressure : */* mmHG Vent. Rate : 101 BPM Atrial Rate : 101 BPM P-R Int : 140 ms QRS Dur : 84 ms QT Int : 360 ms P-R-T Axes : 63 67 32 degrees QTcB Int : 466 ms Sinus tachycardia Otherwise normal ECG When compared with ECG of 28-Apr-2024 20:31, Non-specific change in ST segment in Anterior leads Nonspecific T wave abnormality now evident in Inferior leads Nonspecific T wave abnormality now evident in Lateral leads Referred By: Generic ED Physician Electronically Signed By: RAEGAN COLON
--- NOTE | ~2025-07-26 | XR_ITS ---
CLINICAL HISTORY: svt Single view of the chest. COMPARISON: XR chest dated 04/28/24 at 20:39 EDT FINDINGS: Low lung volumes. Linear consolidation along the left lung base. No pleural effusion. No pneumothorax. No acute fracture. IMPRESSION: 1. Low lung volumes. 2. Linear left basilar consolidation, favored to represent atelectasis. This document has been electronically signed by: Rui Alfonso MD on 07/26/2025 19:43:42
[2025-07-26 18:45] VITALS: BP 108/58; PULSE 105; RESP 20; TEMP 36.6; O2SAT 96; BMI 19.0
[2025-07-26 18:52] VITALS: BP 122/85; PULSE 170; O2SAT 97
[2025-07-26 19:09] VITALS: BP 95/62; PULSE 103; RESP 22; TEMP 36.6; O2SAT 95
[2025-07-26 19:15] LABS: Hematocrit 46.4 % (42.0-52.0); Hemoglobin 15.1 g/dl (14.0-18.0); Mean Corpuscular HGB Conc 32.5 g/dl (31.0-36.0); Mean Corpuscular Hemoglobin 30.4 pg (27.0-33.0); Mean Corpuscular Volume 93.5 fL (80.0-98.0); NRBC Abs Auto 0.000 X10*3/uL (0.0-0.012); NRBC Pct Auto 0.0 /100WBC (0.0-0.2); Platelet Count 208 X10*3/uL (160-400); Red Blood Count 4.96 X10*6/uL (4.60-5.80); White Blood Count 25.7 X10*3/uL (4.8-10.8)
[2025-07-26 19:26] LABS: Alanine Aminotransferase 69 U/L (0-40); Albumin Level 4.2 g/dL (3.5-5.0); Alkaline Phosphatase 81 U/L (39-117); Anion Gap 12 (12-20); Aspartate Amino Transferase 34 U/L (5-37); Blood Urea Nitrogen 20 mg/dL (9-16); Calcium 9.1 mg/dL (8.4-10.2); Carbon Dioxide 23 mmol/L (22-29); Chloride 108 mmol/L (96-108); Creatinine Clr Calc Pharmacy 57.4; Estimated Glomerular Filt Rate > 60; Potassium 4.2 mmol/L (3.3-5.1); Sodium 139 mmol/L (135-145); Total Protein 6.6 g/dL (6.5-8.0)
[2025-07-26 19:42] LABS: Troponin-I High Sensitivity < 2.7 ng/L (<3.5-35.0)
[2025-07-26 20:50] LABS: Atypical Lymph Absolute Manual 0.5 x10*3/uL; Atypical Lymphs Percent Manual 2 % (0-6); Band Neutrophils Percent 5 % (3-5); Basophils Abs Manual 0.3 X10*3/uL (0.0-0.2); Basophils Percent Manual 1 % (0-2); Eosinophils Absolute Manual 0.3 X10*3/uL (0.0-0.4); Eosinophils Percent Manual 1 % (0-4); Lymphocytes Absolute Manual 1.8 X10*3/uL (1.2-4.9); Lymphocytes Percent Manual 7 % (20-40); Monocytes Absolute Manual 2.1 X10*3/uL (0.1-1.2); Monocytes Percent Manual 8 % (2-11); Neutrophils Absolute Manual 20.8 X10*3/uL (2.0-8.3); Neutrophils Percent Manual 76 % (45-73)
[2025-07-26 20:52] LABS: Large Platelet PRESENT; RBC Morphology NORMAL
[2025-07-26 21:29] LABS: Magnesium 1.8 mg/dL (1.6-2.6)
[2025-07-26 21:43] LABS: Thyroid Stimulating Hormone 2.24 uIU/mL (0.32-4.0)
--- NOTE | 2025-07-26 21:43 | ED.ARRPALP ---
HPI - Arrhythmia/Palpitations General Chief Complaint: Arrhythmia/Palpitations Stated Complaint: CHEST PAIN SOB SHOULDER PAIN Time Seen by Provider: 07/26/25 20:40 History of Present Illness ED Provider: lawrence AMBROSIO narrative: Author / Clinician: Joseph Miller MD (Emergency Medicine) Chief Complaint Acute onset chest pain with reported rapid heart rate (EMS-confirmed tachyarrhythmia). History of Present Illness The patient reports awakening this morning feeling mildly dizzy, which he attributed to possible dehydration. He proceeded with his usual morning routine?coffee, water, toast?and left the house. At approximately 13:30 he noticed throbbing pain in his left shoulder (site of prior orthopedic hardware); he associates similar discomfort with cold weather and typically uses a heating pad for relief. Shortly thereafter he developed a burning pain localized to the left side of his chest. Attempting to lie back, he noted difficulty taking a full breath. He had never experienced similar symptoms in the past. He returned home around 17:20; his observed that his face appeared redder than usual and he was clutching his shoulder. While speaking with her, the patient began pinching his chest and confirmed ongoing chest pain. EMS was activated. On EMS arrival the patient was found to be tachycardic; per their report the rhythm appeared to be supraventricular tachycardia (SVT). Adenosine was administered with conversion to normal sinus rhythm prior to ED arrival. Since arrival he has remained in normal rhythm without recurrence of tachycardia. Review of Systems - Constitutional: Dizziness this morning; denies fever. - Cardiovascular: Burning left-sided chest pain; reports rapid heartbeat noted by EMS; no prior similar episodes. - Respiratory: Denies shortness of breath, dyspnea, or leg swelling. - Musculoskeletal: Throbbing pain in left shoulder with prior metal implant. - Skin: Denies rash. - Endocrine/Constitutional: Denies night sweats. - Other systems not discussed. Physical Examination Vital Signs: Physical Exam: - General: Alert and conversational. - Cardiovascular: In normal sinus rhythm; no obvious distress. - Respiratory: Breathing comfortably; no accessory muscle use. - Musculoskeletal: Reports tenderness over left shoulder (surgical site). - HEENT: Facial tenderness over right upper molars per history. Emergency Department Course ? EMS rhythm strip reportedly demonstrated SVT; adenosine administered with successful conversion. ? Initial troponin drawn at ~17:00; normal. Repeat troponin planned for 22:00 to rule out delayed rise. ? CBC showed elevated WBC; repeat CBC ordered to reassess, anticipating decline once tachycardia resolved. ? Basic metabolic panel, thyroid studies, and renal function within normal limits. ? Patient remained hemodynamically stable in ED without recurrence of arrhythmia. Past Medical / Surgical History - Orthopedic surgery to left shoulder with metal implant. - Prior blood clot in intestinal vein (per spouse). - Prior cardiac stress test approximately 2 years ago, reportedly negative. Family History - Mother at age 40 from heart disease. Social History - Smokes cigarettes. Assessment & Plan Diagnosis: - Paroxysmal supraventricular tachycardia (resolved with adenosine); etiology under evaluation. - Chest pain, rule out acute coronary syndrome (ACS). - Laboratory leukocytosis, likely stress related. - Left shoulder pain secondary to prior orthopedic hardware. Plan: - Repeat troponin at 22:00 to definitively rule out myocardial infarction. - Repeat CBC to trend WBC. - Obtain and review EMS rhythm strip to confirm arrhythmia type. - Arrange outpatient cardiology follow-up for further evaluation of arrhythmia and possible additional testing. Disposition Instructions Given Discussed risk of arrhythmia recurrence, need for prompt follow-up, and signs/symptoms warranting immediate medical attention. Related Data Home Medications ?Medication ?Instructions ?Recorded ?Confirmed citalopram 20 mg tablet (Celexa) 20 mg PO DAILY 07/24/20 07/05/25 lorazepam 1 mg tablet 1 mg PO TID 07/24/20 07/05/25 multivitamin-ferrous 1 tab PO DAILY 05/26/25 07/05/25 fumarate-folic acid 18 mg-400 mcg tablet (Spectravite Adult) Previous Rx's ?Medication ?Instructions ?Recorded miscellaneous medical supply #1 ea 07/24/20 nebulizer accessories #1 ea 05/27/23 nebulizers #1 ea 05/27/23 atorvastatin 20 mg tablet 20 mg PO BEDTIME #90 tabs 05/15/25 montelukast 10 mg tablet 10 mg PO DAILY #90 tabs 05/15/25 naproxen 500 mg tablet (Naprosyn) 500 mg PO BID #20 tabs 05/26/25 methocarbamol 750 mg tablet 750 mg PO TID 10 days #30 tabs 07/05/25 albuterol sulfate 90 mcg/actuation 2 puff inhalation Q6H PRN 07/17/25 aerosol inhaler shortness of breath or wheezing #1 ea fluticasone 500 mcg-salmeterol 50 1 ea inhalation Q12H #60 ea 07/17/25 mcg/dose blistr powdr for inhalation (Trey Inhub) ipratropium 0.5 mg-albuterol 3 mg 3 ml inhalation Q6-8H PRN wheezing 07/17/25 (2.5 mg base)/3 mL nebulization #90 mL soln Allergies Allergy/AdvReac Type Severity Reaction Status Date / Time No Known Allergies (No Known Allergy Verified 07/26/25 18:47 Allergies*) [facility] Past Medical History Medical History Acute pharyngitis Acute respiratory disease Hyperlipidemia Anxiety COPD (chronic obstructive pulmonary disease) Leukocytosis Nicotine dependence, cigarettes, uncomplicated Dyslipidemia Surgical History History of esophagogastroduodenoscopy (EGD) History of colonoscopy History of total replacement of right shoulder joint Family History Family History Father Diabetes Heavy drinker of alcohol Substance use disorder Mother Heart attack Heavy drinker of alcohol Substance use disorder Sister Substance use disorder Mental health disorder Social History Social History Household Members: Significant Other Housing: Apartment Alcohol intake: never Patient Tobacco Use Status: Current everyday Tobacco user Tobacco use type: Cigarette Cigarette Packs Per Day: 0.5 Years Smoked: (onset 14yo, 1ppd x 42yrs, now 1/2ppd, 40pyh) e-Cigarette/Vaping Use: Never Used Second Hand Smoke Exposure: Yes service: Yes ([employer]) Current occupational status: disabled Cognitive needs: No Hearing needs: No Vision needs: Yes Physical Exam Exam: Exam: EXAM: Gen: Alert, awake, well appearing, well hydrated. Head: Atraumatic Eyes: Anicteric, Normal conjunctiva. ENT: Moist mucosa, no pallor. ? Neck: Supple. Skin: ?No observable rash or bruising on exposed or examined skin Respiratory: Breathing comfortably, No distress.Clear to auscultation bilaterally, symmetric chest expansion, No wheeze, rales, ronchi. Cardiovascular: Regular rate and rhythm. No murmurs or rub. Well perfused periphery, warm extremities. No edema. ? Abdominal: No focal tenderness. Soft, no objective distension. No palpable masses or obvious organomegaly. ?No guarding, no rebound tenderness or other peritoneal findings. : No flank tenderness. Neuro: Alert. Gross movement of all extremities intact. ? Psych: Calm. Cooperative. MSK: No grossly visible deformity. Vital signs: See flowsheet Vital Signs: Vital Signs: Last Vital Signs Temp 98 F 07/26/25 23:25 Pulse 105 H 07/26/25 23:25 Resp 21 H 07/26/25 23:25 BP 105/63 07/26/25 23:25 Pulse Ox 96 07/26/25 23: O2 Del Method Room Air 07/26/25 23:25 BMI result Body Mass Index 19.0 Medical Decision Making Medical Decision Making MDM Narrative: Medical Decision Makin-year-old male who had atypical nonexertional chest pain starting around 1 intermittent lasts until about 5. No hypoxia only transiently short of breath associated with this. Negative stress test a few years ago per his description. No ischemic changes on ECG. He has been in sinus rhythm on telemetry in our emergency department. With the EMS he was purportedly in SVT in the 170 range and was cardioverted chemically with adenosine. I am unable to review any strips provided by EMS at this time but I will have to trust that this was narrow complex regular and suggestive of SVT to them. The patient is somewhat old without a history of SVT you do have to consider a possible alternative supraventricular rhythm such as rapid AFib although this would be less likely to cardia vera with adenosine. Unlikely ACS but a troponin x2 should exclude this. Electrolytes thyroid within normal limits non actionable. He does have significant leukocytosis though on extensive review of systems did not have any infectious symptomatology and this is likely to be reactive from the stress event and/or cardioversion No symptomatology suggestive of acute DVT nor any history of DVT PE nor any obvious risks. Doubt PE though this was considered. Preliminary Favored Differential Diagnosis: Palpitations, ACS, electrolyte derangement, thyroid disorder, SVT, tachyarrhythmia, less likely ventricular arrhythmia among additional considered etiologies Testing Interpreted Independently: ?See below for details Radiology or Lab testing Results Reviewed: ?See below for details Consults: ?See below for details Independent Historians/External Chart Reviews: ?See below for details Social Determinants of Health Impacting MDM/Planning: ?See below for details Lab Data MDM Lab Attestation statement: I reviewed the patient's lab results. 07/26/25 21:58 07/26/25 19:02 Labs: Lab Results 07/26/25 07/26/25 Range/Units 19:02 21:58 WBC 25.7 H 24.9 H (4.8-10.8) X10*3/uL RBC 4.96 4.86 (4.60-5.80) X10*6/uL Hgb 15.1 14.8 (14.0-18.0) g/dl Hct 46.4 45.0 (42.0-52.0) % MCV 93.5 92.6 (80.0-98.0) fL MCH 30.4 30.5 (27.0-33.0) pg MCHC 32.5 32.9 (31.0-36.0) g/dl RDW 14.6 14.5 (11.0-16.0) % Plt Count 208 194 (160-400) X10*3/uL MPV 11.9 12.2 (9.4-12.4) fL Immature Gran % (Auto) Cancelled 1.3 H Neut % (Auto) Cancelled 79.1 H Lymph % (Auto) Cancelled 10.2 L [place] % (Auto) Cancelled 8.3 Eos % (Auto) Cancelled 0.6 Baso % (Auto) Cancelled 0.5 Lymph # (Auto) Cancelled 2.6 [place] # (Auto) Cancelled 2.1 H Eos # (Auto) Cancelled 0.2 Baso # (Auto) Cancelled 0.1 Abs Immat Gran (auto) Cancelled 0.33 H Absolute Neuts (auto) Cancelled 19.7 H Absolute Nucleated RBC 0.000 0.000 (0.0-0.012) X10*3/uL Nucleated RBC % (auto) 0.0 0.0 (0.0-0.2) /100WBC Neutrophils % (Manual) 76 H (45-73) % Band Neutrophils % 5 (3-5) % Lymphocytes % (Manual) 7 L (20-40) % Atypical Lymphs % (Man) 2 (0-6) % Monocytes % (Manual) 8 (2-11) % Eosinophils % (Manual) 1 (0-4) % Basophils % (Manual) 1 (0-2) % Abs Neuts (Manual) 20.8 H (2.0-8.3) X10*3/uL Lymphocytes # (Manual) 1.8 (1.2-4.9) X10*3/uL Atyp Lymphs # (Manual) 0.5 x10*3/uL Monocytes # (Manual) 2.1 H (0.1-1.2) X10*3/uL Eosinophils # (Manual) 0.3 (0.0-0.4) X10*3/uL Basophils # (Manual) 0.3 H (0.0-0.2) X10*3/uL Platelet Estimate NORMAL (NORMAL) Large Platelets PRESENT Plt Morphology Comment NOTED RBC Morphology NORMAL Smear Tech's Comments MANUAL DIFF Sodium 139 (135-145) mmol/L Potassium 4.2 (3.3-5.1) mmol/L Chloride 108 (96-108) mmol/L Carbon Dioxide 23 (22-29) mmol/L Anion Gap 12 (12-20) BUN 20 H (9-16) mg/dL Creatinine 1.02 (0.5-1.4) mg/dL Estim Creat Clear Calc 57.4 Estimated GFR > 60 Random Glucose 126 H (60-115) mg/dL Calcium 9.1 (8.4-10.2) mg/dL Magnesium 1.8 (1.6-2.6) mg/dL Total Bilirubin 0.4 (0.0-1.0) mg/dL AST 34 (5-37) U/L ALT 69 H (0-40) U/L Alkaline Phosphatase 81 (39-117) U/L Troponin I High Sens < 2.7 < 2.7 (<3.5-35.0) ng/L Total Protein 6.6 (6.5-8.0) g/dL Albumin 4.2 (3.5-5.0) g/dL TSH 2.24 (0.32-4.0) uIU/mL Discharge Plan Discharge Clinical Impression: SVT (supraventricular tachycardia) Patient Disposition: Home, Self-Care Prescriptions: No Action (DME) nebulizers Misc See Rx Instructions .Route Qty: 1 0RF Rx Instructions: As directed (DME) nebulizer accessories Kit See Rx Instructions .Route Qty: 1 0RF Rx Instructions: As directed montelukast 10 mg tablet 10 mg PO DAILY Qty: 90 1RF atorvastatin 20 mg tablet 20 mg PO BEDTIME Qty: 90 1RF lorazepam 1 mg tablet 1 mg PO TID citalopram [Celexa] 20 mg tablet 20 mg PO DAILY (DME) miscellaneous medical supply Pad See Rx Instructions .ROUTE .MEDSUPPLY Qty: 1 0RF Rx Instructions: As directed, heating pad methocarbamol 750 mg tablet 750 mg PO TID 10 Days Qty: 30 0RF fluticasone propion-salmeterol [Wixela Inhub] 500-50 mcg/dose blister with device 1 ea inhalation Q12H Qty: 60 6RF albuterol sulfate 90 mcg/actuation HFA aerosol inhaler 2 puff inhalation Q6H PRN (Reason: shortness of breath or wheezing) Qty: 1 3RF ipratropium-albuterol 0.5 mg-3 mg(2.5 mg base)/3 mL solution for nebulization 3 ml inhalation Q6-8H PRN (Reason: wheezing) Qty: 90 3RF Spectravite Adult 18-400 mg-mcg tablet 1 tab PO DAILY naproxen [Naprosyn] 500 mg tablet 500 mg PO BID Qty: 20 0RF Interventions: ED Discharge Assessment Last Done: 07/26/25 23:25 Discharge Date/Time: 07/26/25 23:34 Print Language: [place] Citizen
[2025-07-26 22:10] LABS: Hematocrit 45.0 % (42.0-52.0); Hemoglobin 14.8 g/dl (14.0-18.0); Imm Gran Abs Auto 0.33 X10*3/uL (0.00-0.03); Imm Gran Pct Auto 1.3 % (0.0-0.4); Lymphocytes Absolute Auto 2.6 X10*3/uL (1.2-4.9); Mean Corpuscular HGB Conc 32.9 g/dl (31.0-36.0); Mean Corpuscular Hemoglobin 30.5 pg (27.0-33.0); Mean Corpuscular Volume 92.6 fL (80.0-98.0); NRBC Abs Auto 0.000 X10*3/uL (0.0-0.012); NRBC Pct Auto 0.0 /100WBC (0.0-0.2); Platelet Count 194 X10*3/uL (160-400); Red Blood Count 4.86 X10*6/uL (4.60-5.80); SCAN SMEAR FLAG 1; White Blood Count 24.9 X10*3/uL (4.8-10.8)
[2025-07-26 22:29] VITALS: BP 109/62; PULSE 94; RESP 20; TEMP 36.8; O2SAT 95
[2025-07-26 22:40] LABS: Troponin-I High Sensitivity < 2.7 ng/L (<3.5-35.0)
[2025-07-26 22:46] LABS: MANUAL DIFF FLAG NO
[2025-07-26 23:11] VITALS: BP 105/73; PULSE 95; RESP 20; O2SAT 96
[2025-07-26 23:25] VITALS: BP 105/63; PULSE 105; RESP 21; TEMP 36.6; O2SAT 96
--- OUTSIDE RECORDS SUMMARY | 2025-07-27 05:13 | XMS_ITS | Clinical Summary ---
Author Organization [facility] Address [address] [place] [address] Care Team Providers Care Clean Room Assembler Name Role Phone Leah Forte DO Primary Care Provider [phone] Allergies No known active allergies Medications Medication [...] age to complete this topic Care Teams Clean Room Assembler Relationship Specialty Start Date End Date Leah Forte DO [address] [place] [address] [phone] PCP - General Family Medicine 01/20/20
== END 2025-07-26 23:34 | disposition home or self-care (01) ==
PROVIDERS: Emergency Provider Emergency Medicine; PCP Nurse Practitioner Family
DX: I47.10 Supraventricular tachycardia, unspecified (principal); R00.2 Palpitations; R42 Dizziness and giddiness; E78.5 Hyperlipidemia, unspecified; F41.9 Anxiety disorder, unspecified; J44.9 Chronic obstructive pulmonary disease, unspecified; F17.200 Nicotine dependence, unspecified, uncomplicated; Z71.6 Tobacco abuse counseling; Z79.899 Other long term (current) drug therapy
CPT/HCPCS: 36415; 71045; 80053; 83735; 84443; 84484; 85007; 85025; 85027; 93005; 99283; 99285

== ENCOUNTER → 2025-07-26 18:44 | Outpatient (BNV) | payer OTHER, SELFPAY | PROVIDERS: Emergency Provider Emergency Medicine; PCP Nurse Practitioner Family; Visit Provider Internal Medicine | DX: R00.0 Tachycardia, unspecified (principal) | CPT/HCPCS: 93010 ==

== ENCOUNTER → 2025-07-26 18:51 | Outpatient (BNV) | payer OTHER, SELFPAY | PROVIDERS: PCP Nurse Practitioner Family; Visit Provider Radiology Diagnostic Radiology | DX: I47.10 Supraventricular tachycardia, unspecified (principal) | CPT/HCPCS: 71045 ==

== ENCOUNTER 2025-08-07 06:15 | Outpatient (AMB) | payer OTHER, SELFPAY ==
--- OUTSIDE RECORDS SUMMARY | 2025-08-07 06:19 | XMS_ITS | Clinical Summary ---
Author Organization [facility] Address [address] [place] [address] Care Team Providers Care Astronomy Professor Name Role Phone Leah Forte DO Primary Care Provider [phone] Allergies No known active allergies Medications Medication [...] age to complete this topic Care Teams Astronomy Professor Relationship Specialty Start Date End Date Leah Forte DO [address] [place] [address] [phone] PCP - General Family Medicine 01/20/20
--- NOTE | 2025-08-07 07:17 | MHC.PC.OV ---
Intake Visit Reasons: ED follow up needs cardiology referral Allergies No Known Allergies (No Known Allergies*) Allergy (Verified 07/26/25 18:47) Tobacco use date assessed: 07/05/25 Dental Screening Dental Screen Date: 07/05/25 [facility] ED follow up needs cardiology referral HPI Details History of Present Illness The patient is a 59 year old individual presenting for a cardiology referral. On 07/26/2025, the patient experienced an episode that began with mild morning dizziness, which the patient attributed to possible dehydration. In the afternoon, around 1:00-1:30 PM, the patient developed shoulder discomfort at the site of a prior orthopedic surgery, followed by burning pains down the left chest and difficulty taking a full breath. The patient's observed the patient's face appearing redder (around 1720) than usual while clutching the shoulder, and EMS was called. The patient was found to be in supraventricular tachycardia (SVT) and was administered adenosine, which resulted in conversion to normal sinus rhythm without recurrence. Workup at the hospital revealed negative troponins, a slightly elevated white blood cell count, and a normal thyroid panel and basic metabolic panel. At present, the patient reports feeling fine and much better, although the event was frightening. The patient is a current smoker and is followed by a soap worker. Review of Systems - General: Reports feeling fine and much better. Denies current dizziness. - Cardiovascular: Reports a recent history of burning pains down the left chest. Denies recurrence of tachycardia. - Respiratory: Reports a recent history of difficulty taking a full breath. - Neurological: Reports a recent history of mild dizziness. - Musculoskeletal: Reports a recent history of shoulder discomfort at a previous surgical site. Plan 1. Supraventricular Tachycardia For further evaluation of the recent episode of SVT, a referral to cardiology will be placed. An echocardiogram, a Holter monitor, and a stress test will be ordered. The patient was advised to contact 911 for any further symptoms. 2. Tobacco Use Disorder The patient is a known smoker and is followed regularly by a soap worker. The cardiac risks associated with smoking were implicitly discussed in the context of the new cardiac workup and return precautions. Discussion Notes I have discussed with the patient the plan for a comprehensive cardiac evaluation following the recent episode of SVT. This will involve placing a referral to cardiology and ordering several diagnostic tests, including an echocardiogram, a Holter monitor, and a stress test, to further investigate the patient's heart function and rhythm. I strongly advised the patient to contact 911 immediately if any further symptoms like chest pain, dizziness, or shortness of breath occur. Patient Instructions - We are referring you to a treasury specialist (hand rigger) for further evaluation. - We will order a new stress test, an ultrasound of your heart (echocardiogram), and a heart monitor (Holter monitor) for you to wear. - It is very important that you call 911 immediately if you have any more symptoms, such as chest pain, dizziness, or trouble breathing. [facility] Medical History Acute pharyngitis Acute respiratory disease Hyperlipidemia Anxiety COPD (chronic obstructive pulmonary disease) Leukocytosis Nicotine dependence, cigarettes, uncomplicated Dyslipidemia Surgical History History of esophagogastroduodenoscopy (EGD) History of colonoscopy History of total replacement of right shoulder joint Family History Father Diabetes Heavy drinker of alcohol Substance use disorder Mother Heart attack Heavy drinker of alcohol Substance use disorder Sister Substance use disorder Mental health disorder Social History Household Members: Significant Other Housing: Apartment Alcohol intake: never Patient Tobacco Use Status: Current everyday Tobacco user Tobacco use type: Cigarette Cigarette Packs Per Day: 0.5 Years Smoked: (onset 14yo, 1ppd x 42yrs, now 1/2ppd, 40pyh) e-Cigarette/Vaping Use: Never Used Second Hand Smoke Exposure: Yes service: Yes ([employer]) Current occupational status: disabled Cognitive needs: No Hearing needs: No Vision needs: Yes Questionnaire Thrive Questionnaire Date Thrive assessed: 12/30/24 I am a: Patient What is your living situation today?: I have a steady place to live Within the past 12 months, did the food you bought not last and you didn't have the money to get more?: I choose not to answer this question Within the past 12 months, did you worry whether your food would run out before you got money to buy more?: I choose not to answer this question Do you have trouble paying for medicines?: Yes Do you have trouble getting transportation to medical appointments?: I choose not to answer this question Do you have trouble paying your heating and electricity bill?: No Do you have trouble taking care of your child, family member or friend?: I choose not to answer this question Do you have trouble with day-to-day activities such as bathing, preparing meals, shopping, managing finances, etc.?: I choose not to answer this question Are you currently unemployed and looking for a job?: No Are you interested in more education?: I choose not to answer this question Please select the resources that you would like help with: Care for elder or disabled THRIVE Score: 0 EZEKIEL-7 AMB Questionnaire EZEKIEL-7 Date EZEKIEL - 7 assessed: 07/05/25 Source: Developed by Drs. Edwin Pinto, Kinjal Allen, Franco Archibald and colleagues, with an educational sonia from [employer]. Physical exam (Primary Care) Tobacco/Smoking Status: Tobacco use Status Tobacco use date assessed 07/05/25 07/05/25 10:40 Patient Tobacco Use Status Current everyday Tobacco 07/05/25 10:40 Tobacco use type Cigarette 07/05/25 10:40 e-Cigarette/Vaping Use Never Used 07/05/25 10:40 Thrive Assessment: Date of Thrive Assessment Date Thrive assessed 12/30/24 07/05/25 10:40 Telehealth Telehealth Telehealth Platform: [facility] Location of provider rendering services: practice address Location of patient: address on file Patient Identification confirmed using: Name, : Yes Telehealth method: video Patient verbally consented to treatment: Yes Patient verbally consented to billing insurance company: Yes Patient informed of any privacy concerns related to visit: Yes Minutes spent on Phone/Video with Pt.: 15 Coding Level of Care Code Tele Est Pt Level 3 (59767) Diagnoses Chest pain R07.9 Supraventricular arrhythmia I49.9 Assessment & Plan Assessment & Plan (1) Chest pain: Code(s): R07.9 - Chest pain, unspecified Category: Medical (2) Supraventricular arrhythmia: Code(s): I49.9 - Cardiac arrhythmia, unspecified Category: Medical Plan . Orders: Orders NM cardiolite stress test Today I47.10 - Supraventricular tachycardia, unspecified, R07.9 - Chest pain, unspecified CA echo transthoracic complete Today I47.10 - Supraventricular tachycardia, unspecified, R07.9 - Chest pain, unspecified CA stress test Today I47.10 - Supraventricular tachycardia, unspecified, R07.9 - Chest pain, unspecified ECG 5 day holter monitor Today I47.10 - Supraventricular tachycardia, unspecified, R07.9 - Chest pain, unspecified Referrals Cardiology Referral I47.10 - Supraventricular tachycardia, unspecified, R07.9 - Chest pain, unspecified
== END 2025-08-07 08:17 | disposition home or self-care (01) ==
LOC: HO.HMCC 06:16
PROVIDERS: PCP Nurse Practitioner Family; Visit Provider Nurse Practitioner Family
DX: R07.9 Chest pain, unspecified (principal); I49.9 Cardiac arrhythmia, unspecified